=== PATIENT | female | born 1945 | race Caucasian/White ===

== ENCOUNTER 2017-07-07 11:30 | Outpatient (RCR) | payer MEDICARE, BC, SELFPAY ==
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
--- NOTE | 2017-12-04 12:46 | HP.PTDCSUM ---
HP - PT D/C Summary It has been my pleasure to treat MEEK ENCINAS under orders from Yas Thompson DPM, for the diagnosis of LEFT PLANTAR FASCITIS AND RIGHT FOOT CAPSULITIS for a total of 10 visit(s). Discharge Date: 07/07/17 Please see the following information for a summary of their discharge status. - Subjective Subjective: PATIENT REPORTS THAT AFTER SHE DOES HER PHYSICAL THERAPY HER FOOT FEELS BETTER. SHE STATES SHE STILL HAS PAIN BUT HAS HOPE THAT IT COULD CONTINUE TO IMPOVE. SHE REPORTS STILL GETTING LEFT HEEL PAIN UP TO 8/10 WHEN SHE FIRST GETS UP AND WHEN SHE GOES TO BED (IT PULSES). IT ALSO HURTS AT NIGHT SOME. SHE REPORTS THE PAIN IS ALWAYS THERE AND AT LEAST 2-3/10. STILL HAVING RIGHT TOE PAIN TOO. SHE REPORTS SHE HAS BEEN TO DR. RAMIREZ TWICE SINCE STARTING PT AND SHE HAD AN INJECTION IN THE LEFT HEEL WHICH HELPED. ANOTHER INJECITON PENDING FRIDAY. SHE REPORTS DR. RAMIREZ SAYS SHE HAS A CLASIC CASE OF LEFT PLANTAR FASCITIS AND SHE IS DOING ALL THE RIGHT THINGS. SHE REPORTS HE SAID SHE HAS ARTHIRIS IN THE RIGHT FOOT. PATIENT REPORTS THAT DR. RAMIREZ FOUND A HEEL SPUR ON HER LEFT WITH X-RAY PRIOR TO INJECTION. PATIENT REPORTS SHE IS GOING TO BE TAKING A COUPLE TRIPS AND WILL HAVE ACCESS TO A POOL OVER THE SUMMER. SHE STATES THE WATER EX SEEMS TO BE HELPING HER IN A LOT OF WAYS AND SHE PLANS TO CONTINUE THIS SUMMER. - Pain L foot Pain Intensity (Out of 10): 4 R foot Pain Intensity (Out of 10): 3 - Overall Improvement % Improvement: 50 - Objective Objective/Function: Dural Signs: POSITIVE RIGHT AND LEFT LE'S. Lumbar mvmt loss: flex - MIN. ext - MOD. R SG - MOD. L SG - MIN. Core strength: POOR. Palpation: NO PALPABALE TENDERNESS IN LUMBOSACRAL AREA OR FEET. OTHER: ABLE TO GREATLY LESSEN ANNALISA FOOT SYMPTOMS WITH PRONE LYING. ABLE TO ABOLISH ANNALISA FOOT SYMPTOMS WITH REPEATED EXTENSION IN LYING WITH CENTRALIZATION. FEET REMAINED BETTER A RESULT EVEN IN WEIGHT BEARING. LE FUNCTIONAL SCORE HAS IMPROVED FROM 23 TO 34 - Goals Goal 1:: DECREASE C/O ANNALISA LE SX'S Goal 2:: IMPROVE STANDING, WALKING, AND RECREATIONAL FUNCTION Goal 3:: INSTRUCT IN PROPHYLAXIS - Plan Plan: D/C DUE TO PATIENT GOING ON SOME TRIPS, GETTING ANOTHER INJECTION AND HAVING ACCESS TO A POOL THIS SUMMER. - D/C Information If there are questions or concerns regarding this patient's physical therapy, please feel free to call me at [phone]. Thank you for the referral of this patient. Sincerely, Katy Workman
== END 2017-07-07 19:00 | disposition home or self-care (01) ==
LOC: PT 11:30
PROVIDERS: Visit Provider Podiatrist
DX: M72.2 Plantar fascial fibromatosis (principal); M77.9 Enthesopathy, unspecified
CPT/HCPCS: 97113; 97162; 97530

== ENCOUNTER → 2018-11-09 11:13 | Outpatient (CLI) | payer MEDICARE, OTHER, SELFPAY ==
--- NOTE | 2018-11-09 11:19 | BI_ITS ---
MAMMOGRAPHY - BILATERAL SCREENING REASON FOR EXAM: Female, 73 years old. Routine annual screening examination. PERTINENT HISTORY: Non-contributory. Remote left excisional breast biopsy. TECHNIQUE: Digital bilateral breast roberta (3D mammographic acquisition) in the CC and MLO projections. 2-D mediolateral oblique (MLO) and craniocaudad (CC) views of both breasts were obtained. CAD: Full Field Digital Mammography with Computer Added Detection was performed. COMPARISON: Comparison is made with prior outside examination October 07, 2017. FINDINGS: Breast Composition: There are scattered areas of fibroglandular density. There are no dominant masses or suspicious calcifications. No other significant abnormalities are identified. There has been no significant change since the prior study. BI/SCREEN MAMM (CAD) W/ROBERTA BILAT IMPRESSION: Stable bilateral screening mammogram. Yearly follow-up mammogram recommended. (A) ASSESSMENT CATEGORY: BIRADS Category 1: Negative. A letter regarding these results will be sent to the patient by the facility within 30 days. Approximately 10% of breast cancers are not detected by mammography. A normal mammogram should not delay biopsy of a clinically suspicious abnormality. [id number] Electronically Signed: Fercho Barnett, at 15:22 EDT , Service support ,
== END ==
PROVIDERS: Family Provider Family Medicine; PCP Family Medicine; Referring Provider Family Medicine; Visit Provider Family Medicine
DX: Z12.31 Encounter for screening mammogram for malignant neoplasm of breast (principal)
CPT/HCPCS: 77063; 77067

== ENCOUNTER → 2018-11-19 08:45 | Outpatient (CLI) | payer MEDICARE, OTHER, SELFPAY ==
[2018-11-19 12:24] LABS: Absolute Lymphocyte Count 1.48 X10^3/uL (0.83-4.51); Absolute Neutrophil Count 1.5 X10^3/uL (2.0-7.7); Basophil# 0.03 X10^3/uL; Basophil% 0.9 % (0-1); Eosinophil# 0.07 X10^3/uL; Hematocrit 43.2 % (37-47); Hemoglobin 13.6 g/dL (12.0-15.0); Lymphocyte # 1.48 X10^3/ul (4.0); Mean Corp Hgb Conc 31.5 g/dL (32-36); Mean Corpuscular Hgb 30.6 pg (27.0-32.0); Mean Corpuscular Volume 97.1 fL (81-99); Mean Platelet Vol. 10.7 fl (6.2-12.0); Monocyte# 0.35 X10^3/uL; Monocyte% 10.2 % (0-10); NRBC Flagged by Analyzer 0 % (0-5); Neutrophil % 43.6 % (47-70); Platelet Count 233 K/mm3 (150-450); RBC Distribution Width CV 12.8 % (11.6-14.6); RBC Distribution Width SD 45.5 fl (35.1-43.9); Red Blood Count 4.45 M/mm3 (4.2-5.4); White Blood Count 3.4 K/mm3 (4.4-11.0)
[2018-11-19 12:50] LABS: Cholesterol 250 mg/dL (200); Free T3 2.9 pg/mL (2.18-3.98); High Density Lipoprotein 45 mg/dL; Thyroid Stim Hormone (TSH) 0.28 uIU/mL (0.358-3.74); Triglycerides 174 mg/dL; Very Low Density Lipoprotein 35 mg/dL (5-40)
== END ==
PROVIDERS: Family Provider Family Medicine; PCP Family Medicine; Visit Provider Family Medicine
DX: E78.5 Hyperlipidemia, unspecified (principal); E03.9 Hypothyroidism, unspecified
CPT/HCPCS: 36415; 80061; 84439; 84443; 84481; 85025

== ENCOUNTER → 2018-11-25 10:54 | Outpatient (CLI) | payer MEDICARE, OTHER, SELFPAY ==
--- NOTE | 2018-11-25 10:58 | US_ITS ---
STUDY: RENAL ULTRASOUND - COMPLETE REASON FOR EXAM: Female, 73 years old. UTI TECHNIQUE: Ultrasound evaluation of the kidneys was performed with real-time and static sheridan-scale imaging. COMPARISON: None available. FINDINGS: RIGHT KIDNEY: Normal location of the right kidney, which is normal in size. The right kidney measures 11 cm. There is a normal cortex of the right kidney. There is a right renal midpole 3 cm cyst. There are no right renal calculi. There is no right hydronephrosis. LEFT KIDNEY: Normal location of the left kidney, which is normal in size. The left kidney measures 11 cm. There is a normal cortex of the left kidney. There is no left renal mass or cyst. There are no left renal calculi. There is no left hydronephrosis. AORTA: No evidence of abdominal aortic aneurysm. I.V.C.: The IVC is patent. BLADDER: The urinary bladder is partially distended and appears unremarkable. US/Kidney and Bladder IMPRESSION: Normal ultrasound of the kidneys and urinary bladder. Right renal cyst. Electronically Signed: Antony Barrett, at 17:44 EDT Tel , Service support ,
== END ==
PROVIDERS: Family Provider Family Medicine; PCP Family Medicine; Referring Provider Urology; Visit Provider Urology
DX: N39.0 Urinary tract infection, site not specified (principal)
CPT/HCPCS: 76770

== ENCOUNTER 2018-11-30 06:43 | Day surgery (SDC) | payer MEDICARE, OTHER, SELFPAY ==
[2018-11-30 07:01] VITALS: BP 139/89; PULSE 91; RESP 16; TEMP 36.8; O2SAT 99; BMI 27.0
[2018-11-30] MEDS: Lactated Ringers 1,000 ML 100 ML IV (07:14)
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
--- NOTE | 2018-11-30 08:00 | COLBX_PTH ---
PATIENT: MEEK ENCINAS LOC: EN U#:[id number] AGE/SX: 73/F ROOM: RE11/30/[address]: Dr. Rafael Rios MD : 1945 BED: DIS: 11/30/2018 SPEC #: [id number] RECD: 11/30/18 13:05 STATUS: DIANDRA REJanette #: [id number] NEVA: 11/30/18 08:[address]: Rafael Rios DEPT: SURGICAL PATHOLOGY RECD BY: Александр Padilla ENTERED: 11/30/18 13:36 SP TYPE: COLON BX OTHR DR: Dr. Gail Ko MD Tissues: Transverse colon Procedures: Surgery Specimen Level IV HEADER OPERATION: Colonoscopy - open access (MAC) PRE-OP DIAGNOSIS: Screening colonoscopy TISSUE SUBMITTED: Transverse colon polyp MICROSCOPIC DIAGNOSIS Transverse colon polyp, biopsy: A polypoid fragment of colonic mucosa with focal hyperplastic changes. SJ:agustin 12/01/18 MICROSCOPIC DESCRIPTION Slides are reviewed. GROSS DESCRIPTION Received in fixative is one container labeled with the patient's name and designated transverse colon polyp. The specimen consists of one irregular fragment of light buchanan soft tissue that measures 0.5 x 0.3 x 0.2 cm. The specimen is totally submitted in one cassette. / SJ:agustin 11/30/18 TC:5 CPT: 57594
--- NOTE | 2018-11-30 08:18 | OP.ENDO_ITS ---
11/30/2018 Gail Ko [facility] [place] [id number] [place] [address] Re : Colonoscopy procedure for Kristina Bonilla Dear Dr. Ko This procedure was performed on Friday, November 30, 2018. My impressions and recommendations are as follows: Impressions : - Preparation of the colon was poor. - Two 4 to 10 mm polyps in the descending colon and in the transverse colon, removed with a hot snare. Resected and retrieved. - Diverticulosis in the sigmoid colon and in the descending colon. - The examination was otherwise normal. Recommendations : - Discharge patient to home. - Resume previous diet. - Continue present medications. - Await pathology results. - Repeat colonoscopy in 3 years for surveillance. This is due to the poor bowel prep and the fact she had two polyps. - Return to my office in 1 week. My findings are described in the full procedure note, which is enclosed. If I can be of further assistance, please feel free to contact me at Doctor phone number(s): , Fax: [phone], Work: . Sincerely, MD Rafael Ruiz MD 11/30/2018 8:17:56 AM This report has been signed electronically.
[2018-11-30 08:20] VITALS: BP 114/83; BP 139/89; PULSE 96; RESP 22; TEMP 36.3; O2SAT 95
[2018-11-30 08:25] VITALS: BP 133/93; BP 139/89; PULSE 98; RESP 24; O2SAT 91
[2018-11-30 08:30] VITALS: BP 132/86; BP 139/89; PULSE 96; RESP 24; O2SAT 94
[2018-11-30 08:35] VITALS: BP 125/88; BP 139/89; PULSE 94; RESP 16; TEMP 36.5; O2SAT 96
[2018-11-30 08:57] VITALS: BP 139/89
== END 2018-11-30 09:13 | disposition home or self-care (01) ==
LOC: EN 06:45 → AC 06:45
PROVIDERS: Family Provider Family Medicine; PCP Family Medicine; Referring Provider Family Medicine; Visit Provider Surgery
PROC: 0DJD8ZZ Inspection of Lower Intestinal Tract, Via Natural or Artificial Opening Endoscopic (ICD-10-PCS; CPT 45378; principal; 2018-11-30 07:55)
DX: Z12.11 Encounter for screening for malignant neoplasm of colon (principal); K63.5 Polyp of colon; K57.30 Diverticulosis of large intestine without perforation or abscess without bleeding; K59.00 Constipation, unspecified; G43.909 Migraine, unspecified, not intractable, without status migrainosus; E03.9 Hypothyroidism, unspecified; Z78.0 Asymptomatic menopausal state; Z87.440 Personal history of urinary (tract) infections; Z79.899 Other long term (current) drug therapy
CPT/HCPCS: 45385; 88305; J7120; J1610; J2405

== ENCOUNTER → 2019-08-17 15:16 | Outpatient (CLI) | payer MEDICARE, OTHER, SELFPAY ==
[2019-08-12 10:44] VITALS: BMI 27.0
== END ==
PROVIDERS: PCP Family Medicine; Referring Provider Chiropractor; Visit Provider Chiropractor
DX: M99.03 Segmental and somatic dysfunction of lumbar region (principal)
CPT/HCPCS: 72100

== ENCOUNTER → 2020-01-06 13:17 | Outpatient (CLI) | payer MEDICARE, OTHER, SELFPAY ==
[2019-09-16 15:10] VITALS: BMI 27.0
--- NOTE | 2020-01-06 13:19 | BI_ITS ---
MAMMOGRAPHY - BILATERAL SCREENING REASON FOR EXAM: Female, 74 years old. Routine annual screening examination. PERTINENT HISTORY: Non-contributory. Remote left excisional breast biopsy. TECHNIQUE: Digital bilateral breast roberta (3D mammographic acquisition) in the CC and MLO projections. 2-D mediolateral oblique (MLO) and craniocaudad (CC) views of both breasts were obtained. CAD: Full Field Digital Mammography with Computer Added Detection was performed. COMPARISON: Comparison is made with prior study dated 11/09/2018. FINDINGS: Breast Composition: There are scattered areas of fibroglandular density. There are no dominant masses or suspicious calcifications. No other significant abnormalities are identified. There has been no significant change since the prior study. BI/SCREEN MAMM (CAD) W/ROBERTA BILAT IMPRESSION: Stable bilateral screening mammogram. Yearly follow-up mammogram recommended. (A) ASSESSMENT CATEGORY: BIRADS Category 1: Negative. A letter regarding these results will be sent to the patient by the facility within 30 days. Approximately 10% of breast cancers are not detected by mammography. A normal mammogram should not delay biopsy of a clinically suspicious abnormality. [id number] Electronically Signed: Fercho Barnett, at 14:42 EST , Service support ,
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
== END ==
PROVIDERS: PCP Family Medicine; Referring Provider Family Medicine; Visit Provider Family Medicine
DX: Z12.31 Encounter for screening mammogram for malignant neoplasm of breast (principal); Z78.0 Asymptomatic menopausal state
CPT/HCPCS: 77063; 77067; 77080

== ENCOUNTER → 2020-01-17 07:54 | Outpatient (CLI) | payer MEDICARE, OTHER, SELFPAY ==
[2019-09-16 15:10] VITALS: BMI 27.0
--- NOTE | 2020-01-17 08:15 | RAD_ITS ---
STUDY: X-RAY - PELVIS AND RIGHT HIP REASON FOR EXAM: Female, 74 years old. PAIN, NKI TECHNIQUE: 3 views of the pelvis and hip. COMPARISON: None. FINDINGS: There is a non-specific bowel gas pattern. Normal visualized soft tissue structures. Normal bilateral iliac wings, sacroiliac joints and visualized sacrum. Normal bilateral superior and inferior pubic rami. Normal pubic symphysis. Normal bilateral ischial tuberosities. Normal visualized femoral head. Minor acetabular spurring. Normal hip joint. RAD/HIP, UNI W/ Pelvis 2-3 Views IMPRESSION: Mild degenerative changes. No acute fracture or other significant bony pathology. Electronically Signed: Antony Nair MD at 22:55 EST , Service support ,
[2020-01-17 08:50] LABS: Absolute Lymphocyte Count 2.02 X10^3/uL (0.83-4.51); Absolute Neutrophil Count 1.7 X10^3/uL (2.0-7.7); Basophil# 0.03 X10^3/uL; Basophil% 0.7 % (0-1); Eosinophil# 0.05 X10^3/uL; Eosinophils% 1.2 % (0-5); Hematocrit 43.4 % (37-47); Lymphocyte # 2.02 X10^3/ul (4.0); Lymphocyte % 48.2 % (19-41); Mean Corp Hgb Conc 32.3 g/dL (32-36); Mean Corpuscular Hgb 31.3 pg (27.0-32.0); Mean Corpuscular Volume 96.9 fL (81-99); Mean Platelet Vol. 10.5 fl (6.2-12.0); Monocyte# 0.34 X10^3/uL; Monocyte% 8.1 % (0-10); NRBC Flagged by Analyzer 0 % (0-5); Neutrophil # 1.74 X10^3/uL (2.7-7.7); Neutrophil % 41.6 % (47-70); Platelet Count 242 K/mm3 (150-450); RBC Distribution Width CV 12.5 % (11.6-14.6); RBC Distribution Width SD 44.8 fl (35.1-43.9); Red Blood Count 4.48 M/mm3 (4.2-5.4); White Blood Count 4.2 K/mm3 (4.4-11.0)
[2020-01-17 09:26] LABS: ALB/GLOB Ratio 1.2 RATIO (0.9-2.4); AST(SGOT) 19 U/L (15-37); Alanine Aminotransfer ALT/SGPT 23 U/L (13-56); Albumin, Serum 3.8 g/dL (3.2-5.0); Alkaline Phosphatase 62 U/L (45-117); Anion Gap 4 (5-15); BUN 12 mg/dL (7-18); BUN/Creat Ratio 14.1 RATIO (10-20); Calcium,Total 8.9 mg/dL (8.5-10.1); Chloride 110 mmol/L (98-107); Cholesterol 263 mg/dL (200); Creatinine, Serum 0.85 mg/dL (0.55-1.02); EST Glomerular Filtration Rate 69 mL/min (>60); Est Glom Filt Rate - Afr Amer 84 mL/min (>60); Free T3 2.3 pg/mL (2.18-3.98); Globulin 3.3 g/dL (2.2-4.2); Glucose 87 mg/dL (74-106); High Density Lipoprotein 52 mg/dL; Potassium 4.1 mmol/L (3.5-5.1); Protein, Total 7.1 g/dL (6.4-8.2); Sodium Level 142 mmol/L (136-145); Thyroid Stim Hormone (TSH) 0.98 uIU/mL (0.358-3.74); Triglycerides 147 mg/dL; Very Low Density Lipoprotein 29 mg/dL (5-40)
== END ==
PROVIDERS: PCP Family Medicine; Referring Provider Family Medicine; Visit Provider Family Medicine
DX: M25.551 Pain in right hip (principal); E03.9 Hypothyroidism, unspecified; K21.9 Gastro-esophageal reflux disease without esophagitis; K44.9 Diaphragmatic hernia without obstruction or gangrene; E78.5 Hyperlipidemia, unspecified
CPT/HCPCS: 36415; 73502; 80053; 80061; 84439; 84443; 84481; 85025

== ENCOUNTER → 2020-11-18 | Outpatient (CLI) | payer MEDICARE, OTHER, SELFPAY | END | disposition home or self-care (01) | LOC: LABSPEC 07:57 | PROVIDERS: Visit Provider Family Medicine | DX: Z20.828 Contact with and (suspected) exposure to other viral communicable diseases (principal) | CPT/HCPCS: 87635; U0005; U0003 ==

== ENCOUNTER → 2021-01-15 09:39 | Outpatient (CLI) | payer MEDICARE, OTHER, SELFPAY ==
--- NOTE | 2021-01-15 09:43 | BI_ITS ---
MAMMOGRAPHY - BILATERAL SCREENING REASON FOR EXAM: Female, 75 years old. Routine annual screening examination. PERTINENT HISTORY: Non-contributory. Remote left excisional breast biopsy. TECHNIQUE: Digital bilateral breast roberta (3D mammographic acquisition) in the CC and MLO projections. 2-D mediolateral oblique (MLO) and craniocaudad (CC) views of both breasts were obtained. CAD: Full Field Digital Mammography with Computer Added Detection was performed. COMPARISON: Comparison is made with prior study dated 01/06/2020 and 11/09/2018. FINDINGS: Breast Composition: There are scattered areas of fibroglandular density. There are no dominant masses or suspicious calcifications. No other significant abnormalities are identified. There has been no significant change since the prior study. BI/SCRN MAMM (CAD)W/ROBERTA BILAT IMPRESSION: Stable bilateral screening mammogram. Yearly follow-up mammogram recommended. (A) ASSESSMENT CATEGORY: BIRADS Category 1: Negative. A letter regarding these results will be sent to the patient by the facility within 30 days. Approximately 10% of breast cancers are not detected by mammography. A normal mammogram should not delay biopsy of a clinically suspicious abnormality. [id number] Electronically Signed: Fercho Barnett MD at 10:54 EST , Service support ,
== END ==
PROVIDERS: PCP Family Medicine; Referring Provider Family Medicine; Visit Provider Family Medicine
DX: Z12.31 Encounter for screening mammogram for malignant neoplasm of breast (principal)
CPT/HCPCS: 77063; 77067

== ENCOUNTER 2021-11-20 06:12 | Day surgery (SDC) | payer MEDICARE, OTHER, SELFPAY ==
[2021-11-20] VITALS (7 sets, daily range): BP systolic 119–127; BP diastolic 62–83; PULSE 85–93; RESP 16–18; TEMP 36.3–37.2; O2SAT 95–100; BMI 27.4
[2021-11-20] MEDS: Lactated Ringers 1,000 ML 15 ML IV (07:00)
--- NOTE | 2021-11-20 07:16 | HP.PCM_ITS ---
[facility] - General General Date of Service: 11/20/21 Chief Complaint: Screening for intestinal cancer HPI Narrative MEEK ENCINAS, is a 76 F who presents who presents via open access today for a colonoscopy. The patient's previously had multiple colon polyps November 2018. Her daughter unfortunately from colon cancer. She has no complaints. She otherwise enjoys good health. No bright red blood per rectum or melena. No abdominal pain. [facility] Medical History (Updated 11/16/21 @ 09:41 by Laury Pearce) Alcohol use Injury of head and neck Migraine headache Non-smoker PONV (postoperative nausea and vomiting) Thyroid disease Wears glasses Home Medications levothyroxine 100 mcg tablet 100 mcg PO DAILY 11/25/18 [History Last Taken 11/29/18] prochlorperazine maleate 10 mg tablet 10 mg PO PRN PRN Migraine Headache 11/25/18 [History Last Taken Unknown] sumatriptan succinate 50 mg tablet 50 mg PO PRN PRN headaches 11/25/18 [History Last Taken Unknown] psyllium husk 0.4 gram capsule (Metamucil) 0.4 g PO DAILY 10/29/21 [History Last Taken Unknown] Allergy/AdvReac Type Severity Reaction Status Date / Time nitrofurantoin Allergy Itching Verified 11/20/21 06:50 [From Macrobid] cephalexin [From Keflex] AdvReac Nausea Verified 11/20/21 06:50 prednisone AdvReac Upset Verified 11/20/21 06:50 Stomach Family History (Updated 10/29/21 @ 16:10 by Charlene Whitaker) Daughter Colon cancer Surgical History (Updated 11/16/21 @ 09:31 by Laury Pearce) History of bladder repair surgery History of colonoscopy (~11/30/18) History of hysterectomy Social History Smoking Status: Never smoker ROS Constitutional Constitutional: Reports systems reviewed and no addt'l complaints, except as documented Cardiovascular Cardiovascular: Denies chest pain Respiratory/Chest Respiratory/Chest: Denies shortness of breath at rest Gastrointestinal Gastrointestinal: Denies abdominal pain, change in bowel habits, hematochezia or melena Vital Signs Vital Signs Vital Signs: 11/20/21 06:52 Temperature 97.5 F L Temperature Source Temporal Pulse Rate 85 Respiratory Rate 18 Blood Pressure 127/79 H Blood Pressure Mean 95 Blood Pressure Source Monitor Blood Pressure Position Semi-Fowlers Blood Pressure Location Left Arm Pulse Ox 100 Oxygen Delivery Method Room Air Weight Weight: 159 lb 12.8 oz Body Mass Index (BMI) 27.4 Physical Exam Const alert, oriented x3 and no apparent distress General Appearance: cooperative and comfortable Eyes General Eye: normal appearance of both eyes Neck General: normal visual inspection Chest inspection of chest normal Resp Effort and Inspection: able to speak in complete sentences and symmetric chest movement Auscultation: clear to auscultation bilaterally Cardio regular rate and regular rhythm GI soft to palpation, non-tender and non-distended Extremity no calf tenderness Neuro oriented x3 Psych thought process normal Assessment & Plan Assessment/Plan (1) History of colon polyps: PLAN: 76-year-old female presents with a personal history of colon polyps. She presents via open access. She has had an opportunity to ask and have questions answered. Anticipate proceeding with a colonoscopy with possible biopsy or polypectomy as indicated. David Varghese M.D., F.A.C.S.
--- NOTE | 2021-11-20 08:11 | OP.COLON_ITS ---
Patient Name: Kristina Bonilla Procedure Date: 11/20/2021 7:19 AM Date of : 1945 Age: 76 Procedure: Colonoscopy Indications: High risk colon cancer surveillance: Personal history of colonic polyps Providers: David Varghese MD Referring MD: Gail Ko Medicines: See the Anesthesia note for documentation of the administered medications Patient Profile: Last Colonoscopy: November 2018. Complications: No immediate complications. Procedure: Pre-Anesthesia Assessment: - Prior to the procedure, a History and Physical was performed, and patient medications and allergies were reviewed. The patient's tolerance of previous anesthesia was also reviewed. The risks and benefits of the procedure and the sedation options and risks were discussed with the patient. All questions were answered, and informed consent was obtained. Prior Anticoagulants: The patient has taken no previous anticoagulant or antiplatelet agents. ASA Grade Assessment: II - A patient with mild systemic disease. After reviewing the risks and benefits, the patient was deemed in satisfactory condition to undergo the procedure. After I obtained informed consent, the scope was passed under direct vision. Throughout the procedure, the patient's blood pressure, pulse, and oxygen saturations were monitored continuously. The colonoscope was introduced through the anus and advanced to the cecum, identified by appendiceal orifice and ileocecal valve. The colonoscopy was technically difficult and complex due to multiple diverticula in the colon, poor bowel prep and a tortuous colon. Successful completion of the procedure was aided by changing the patient to a supine position and using manual pressure. The patient tolerated the procedure well. The quality of the bowel preparation was fair. The ileocecal valve and the appendiceal orifice were photographed. Scope In: 7:30:07 AM Scope Withdrawal Time 0 hours 9 minutes 53 seconds Scope Out: 8:05:16 AM Total Procedure Duration Time 0 hours 35 minutes 9 seconds Findings: Hemorrhoids were found on perianal exam. Multiple diverticula were found in the sigmoid colon and descending colon. The colon (entire examined portion) revealed significantly excessive looping. Impression: - Preparation of the colon was fair. - Hemorrhoids found on perianal exam. - Diverticulosis in the sigmoid colon and in the descending colon. - There was significant looping of the colon. - No specimens collected. Recommendation: - Discharge patient to home. - Resume previous diet. - Continue present medications. - Repeat colonoscopy in 5 years for surveillance. Consider Adult colonoscope Procedure Code(s): --- Professional --- 29315, Colonoscopy, flexible; diagnostic, including collection of specimen(s) by brushing or washing, when performed (separate procedure) Diagnosis Code(s): --- Professional --- Z86.010, Personal history of colonic polyps K64.9, Unspecified hemorrhoids K57.30, Diverticulosis of large intestine without perforation or abscess without bleeding CPT copyright 2017 [employer]. All rights reserved. The codes documented in this report are preliminary and upon cork pressing machine operator review may be revised to meet current compliance requirements. David Varghese MD 11/20/2021 8:10:59 AM This report has been signed electronically. Number of Addenda: 0 Note Initiated On: 11/20/2021 7:19 AM
--- NOTE | 2021-11-20 08:12 | OP.CCLET_ITS ---
11/20/2021 Gail Ko [place] [id number] [facility] [address] [address] Re : Colonoscopy procedure for Kristina Bonilla Dear Dr. Ko This procedure was performed on Saturday, November 20, 2021. My impressions and recommendations are as follows: Impressions : - Preparation of the colon was fair. - Hemorrhoids found on perianal exam. - Diverticulosis in the sigmoid colon and in the descending colon. - There was significant looping of the colon. - No specimens collected. Recommendations : - Discharge patient to home. - Resume previous diet. - Continue present medications. - Repeat colonoscopy in 5 years for surveillance. Consider Adult colonoscope My findings are described in the full procedure note, which is enclosed. If I can be of further assistance, please feel free to contact me at Doctor phone number(s): Work: . Sincerely, David Varghese MD 11/20/2021 8:10:59 AM This report has been signed electronically.
== END 2021-11-20 09:21 | disposition home or self-care (01) ==
LOC: EN 06:14 → AC 06:15
PROVIDERS: PCP Family Medicine; Referring Provider Family Medicine; Visit Provider Surgery
PROC: 0DJD8ZZ Inspection of Lower Intestinal Tract, Via Natural or Artificial Opening Endoscopic (ICD-10-PCS; CPT 45378; principal; 2021-11-20 07:25)
DX: K57.30 Diverticulosis of large intestine without perforation or abscess without bleeding (principal); K64.9 Unspecified hemorrhoids; Z79.2 Long term (current) use of antibiotics; Z86.010 Personal history of colon polyps; Z80.0 Family history of malignant neoplasm of digestive organs
CPT/HCPCS: 45378; J7120; J2405

== ENCOUNTER → 2021-12-20 | Outpatient (CLI) | payer MEDICARE, OTHER, SELFPAY ==
[2021-12-20 09:35] LABS: Absolute Lymphocyte Count 1.81 X10^3/uL (0.83-4.51); Basophil# 0.03 X10^3/uL; Basophil% 0.7 % (0-1); Eosinophil# 0.05 X10^3/uL; Eosinophils% 1.2 % (0-5); Hematocrit 44.6 % (37-47); Hemoglobin 15.1 g/dL (12.0-15.0); Lymphocyte # 1.81 X10^3/ul (0.83-4.51); Lymphocyte % 41.8 % (19-41); Mean Corp Hgb Conc 33.9 g/dL (32-36); Mean Corpuscular Hgb 31.9 pg (27.0-32.0); Mean Corpuscular Volume 94.3 fL (81-99); Mean Platelet Vol. 9.9 fl (6.2-12.0); Monocyte% 9.2 % (0-10); NRBC Flagged by Analyzer 0 % (0-5); Neutrophil # 2.03 X10^3/uL (2.7-7.7); Neutrophil % 46.9 % (47-70); Platelet Count 241 K/mm3 (150-450); RBC Distribution Width CV 12.3 % (11.6-14.6); RBC Distribution Width SD 42.8 fl (35.1-43.9); Red Blood Count 4.73 M/mm3 (4.2-5.4); White Blood Count 4.3 K/mm3 (4.4-11.0)
[2021-12-20 10:34] LABS: ALB/GLOB Ratio 1.2 RATIO (0.9-2.4); AST(SGOT) 14 U/L (15-37); Alanine Aminotransfer ALT/SGPT 21 U/L (13-56); Albumin, Serum 3.9 g/dL (3.2-5.0); Alkaline Phosphatase 62 U/L (45-117); Anion Gap 4 (5-15); BUN 16 mg/dL (7-18); BUN/Creat Ratio 16.9 RATIO (10-20); Calcium,Total 9.6 mg/dL (8.5-10.1); Chloride 107 mmol/L (98-107); Cholesterol 260 mg/dL (200); Creatinine, Serum 0.94 mg/dL (0.55-1.02); EST Glomerular Filtration Rate 61 mL/min (>60); Est Glom Filt Rate - Afr Amer 74 mL/min (>60); Globulin 3.3 g/dL (2.2-4.2); Glucose 99 mg/dL (74-106); High Density Lipoprotein 48 mg/dL; Potassium 4.3 mmol/L (3.5-5.1); Protein, Total 7.2 g/dL (6.4-8.2); Sodium Level 140 mmol/L (136-145); Thyroid Stim Hormone (TSH) 0.49 uIU/mL (0.358-3.74); Triglycerides 189 mg/dL; Very Low Density Lipoprotein 38 mg/dL (5-40)
== END | disposition home or self-care (01) ==
LOC: PAVLAB 09:17
PROVIDERS: PCP Family Medicine; Referring Provider Family Medicine; Visit Provider Family Medicine
DX: Z00.00 Encounter for general adult medical examination without abnormal findings (principal); E03.9 Hypothyroidism, unspecified; E78.5 Hyperlipidemia, unspecified
CPT/HCPCS: 36415; 80053; 80061; 84439; 84443; 85025

== ENCOUNTER 2022-01-22 13:24 | Outpatient (CLI) | payer MEDICARE, OTHER, SELFPAY ==
--- NOTE | 2022-01-22 13:26 | BI_ITS ---
MAMMOGRAPHY - BILATERAL SCREENING REASON FOR EXAM: Female, 76 years old. Routine annual screening examination. PERTINENT HISTORY: Non-contributory. Remote left excisional breast biopsy. TECHNIQUE: Digital bilateral breast roberta (3D mammographic acquisition) in the CC and MLO projections. 2-D mediolateral oblique (MLO) and craniocaudad (CC) views of both breasts were obtained. CAD: Full Field Digital Mammography with Computer Added Detection was performed. COMPARISON: Comparison is made with prior study dated 01/15/2021 and 01/06/2020. FINDINGS: Breast Composition: There are scattered areas of fibroglandular density. There are no dominant masses or suspicious calcifications. No other significant abnormalities are identified. There has been no significant change since the prior study. BI/SCRN MAMM (CAD)W/ROBERTA BILAT IMPRESSION: Stable bilateral screening mammogram. Yearly follow-up mammogram recommended. (A) ASSESSMENT CATEGORY: BIRADS Category 1: Negative. A letter regarding these results will be sent to the patient by the facility within 30 days. Approximately 10% of breast cancers are not detected by mammography. A normal mammogram should not delay biopsy of a clinically suspicious abnormality. [id number] Electronically Signed: Fercho Barnett MD at 14:21 EST ,
== END 2022-01-22 23:59 | disposition home or self-care (01) ==
LOC: OPBI 13:24
PROVIDERS: PCP Family Medicine; Referring Provider Family Medicine; Visit Provider Family Medicine
DX: Z12.31 Encounter for screening mammogram for malignant neoplasm of breast (principal); Z92.89 Personal history of other medical treatment
CPT/HCPCS: 77063; 77067

== ENCOUNTER → 2022-06-05 | Outpatient (CLI) | payer MEDICARE, OTHER, SELFPAY ==
--- NOTE | 2022-06-05 14:59 | US_ITS ---
STUDY: SUPERFICIAL ULTRASOUND - SOFT TISSUES NECK. REASON FOR EXAM: Female, 77 years old. LUMP rt neck TECHNIQUE: A superficial ultrasound was performed with real-time and static murguia-scale imaging. COMPARISON: None. FINDINGS: The right parotid gland measures 5.1 cm x 4.9 cm x 1 cm. Within it, there is a cyst measuring 1.2 cm x 1.1 cm x 0.7 cm. Anterior to the right parotid gland, there is a benign-appearing 8 mm x 5 mm x 4 mm lymph node. The left thyroid gland measures 4.6 cm x 4.6 cm x 0.9 cm. US/Head/Neck Soft Tissue IMPRESSION: 1.2 cm x 1.1 cm x 0.7 cm cyst in the right parotid gland. Electronically Signed: Fercho Barnett MD at 9:52 EDT ,
== END | disposition home or self-care (01) ==
LOC: US 14:56
PROVIDERS: PCP Family Medicine; Referring Provider Family Medicine; Visit Provider Family Medicine
DX: R59.0 Localized enlarged lymph nodes (principal)
CPT/HCPCS: 76536

== ENCOUNTER → 2023-01-03 | Outpatient (CLI) | payer MEDICARE, OTHER, SELFPAY ==
[2023-01-03 19:08] LABS: T4 Free Direct 1.31 ng/dL (0.76-1.46); Thyroid Stim Hormone (TSH) 0.08 uIU/mL (0.358-3.74)
== END | disposition home or self-care (01) ==
LOC: BFHLAB 14:42
PROVIDERS: PCP Family Medicine; Visit Provider Family Medicine
DX: E03.9 Hypothyroidism, unspecified (principal)
CPT/HCPCS: 36415; 84439; 84443

== ENCOUNTER → 2023-01-30 | Outpatient (CLI) | payer MEDICARE, OTHER, SELFPAY ==
--- NOTE | 2023-01-30 09:34 | BI_ITS ---
MAMMOGRAPHY - BILATERAL SCREENING REASON FOR EXAM: Female, 77 years old. Routine annual screening examination. PERTINENT HISTORY: Non-contributory. Remote left excisional breast biopsy. TECHNIQUE: Digital bilateral breast roberta (3D mammographic acquisition) in the CC and MLO projections. 2-D mediolateral oblique (MLO) and craniocaudad (CC) views of both breasts were obtained. CAD: Full Field Digital Mammography with Computer Added Detection was performed. COMPARISON: Comparison is made with prior study January 22, 2022 and January 06 9021. FINDINGS: Breast Composition: There are scattered areas of fibroglandular density. There are no dominant masses or suspicious calcifications. No other significant abnormalities are identified. There has been no significant change since the prior study. BI/SCRN MAMM (CAD)W/ROBERTA BILAT IMPRESSION: Stable bilateral screening mammogram. Yearly follow-up mammogram recommended. (A) ASSESSMENT CATEGORY: BIRADS Category 2: Benign. A letter regarding these results will be sent to the patient by the facility within 30 days. Approximately 10% of breast cancers are not detected by mammography. A normal mammogram should not delay biopsy of a clinically suspicious abnormality. [id number] Electronically Signed: Fercho Barnett MD at 10:37 EST ,
== END | disposition home or self-care (01) ==
LOC: OPBI 09:32
PROVIDERS: PCP Family Medicine; Referring Provider Family Medicine; Visit Provider Family Medicine
DX: Z12.31 Encounter for screening mammogram for malignant neoplasm of breast (principal)
CPT/HCPCS: 77063; 77067

== ENCOUNTER → 2023-03-14 | Outpatient (CLI) | payer MEDICARE, OTHER, SELFPAY ==
--- OUTSIDE RECORDS SUMMARY | 2023-03-14 15:53 | XMS RPT_ITS | CCD ---
Author Name Unknown Address [address] [place] [address] [address] [place] [address] Organization [facility] Results Test Name Value Interpretation Reference Range Facil ity Summary Purpose Family History No Family History Records Found Advance Directives No Advanced Directives Records Found Additional Source Comments INFORMATION SOURCE (unrecogn ized section and content) FOR RECORDS PERTAINING TO PATIENTS WHO ARE OR HAVE BEEN ENROLLED IN A CHEMICAL DEPENDENCY/SUBSTANCEABUSE PROGRAM, SOME INFORMATION MAY BE OMITTED. This clinical summary was aggregated from multiple sources. Caution should be exercised in using it in the provision of clinical care. This summary normalizes information from multiple sources, and as a consequence, information in this document may materially change the coding, format and clinical context of patient data. In addition, data may be omitted in some cases. CLINICAL DECISIONS SHOULD BE BASED ON THE PRIMARY CLINICAL RECORDS. [employer] provides no warranty or guarantee of the accuracy or completeness of information in this document.
[2023-03-14 17:41] LABS: Absolute Lymphocyte Count 1.71 X10^3/uL (0.83-4.51); Absolute Neutrophil Count 2.8 X10^3/uL (2.0-7.7); Basophil# 0.03 X10^3/uL; Basophil% 0.6 % (0-1); Eosinophil# 0.03 X10^3/uL; Eosinophils% 0.6 % (0-5); Hemoglobin 13.9 g/dL (12.0-15.0); Lymphocyte # 1.71 X10^3/ul (0.83-4.51); Lymphocyte % 34.5 % (19-41); Mean Corp Hgb Conc 32.3 g/dL (32-36); Mean Corpuscular Hgb 30.9 pg (27.0-32.0); Mean Corpuscular Volume 95.6 fL (81-99); Mean Platelet Vol. 10.8 fl (6.2-12.0); Monocyte# 0.42 X10^3/uL; Monocyte% 8.5 % (0-10); NRBC Flagged by Analyzer 0 % (0-5); Neutrophil # 2.76 X10^3/uL (2.7-7.7); Neutrophil % 55.6 % (47-70); Platelet Count 246 K/mm3 (150-450); RBC Distribution Width CV 12.8 % (11.6-14.6); RBC Distribution Width SD 44.9 fl (35.1-43.9)
[2023-03-14 18:36] LABS: T4 Free Direct 1.32 ng/dL (0.76-1.46); Thyroid Stim Hormone (TSH) 0.21 uIU/mL (0.358-3.74)
== END | disposition home or self-care (01) ==
LOC: BFHLAB 15:30
PROVIDERS: PCP Family Medicine; Visit Provider Family Medicine
DX: U07.1 COVID-19 (principal); E03.9 Hypothyroidism, unspecified
CPT/HCPCS: 36415; 84439; 84443; 85025

== ENCOUNTER → 2024-01-08 | Outpatient (CLI) | payer MEDICARE, OTHER, SELFPAY ==
[2024-01-08 12:18] LABS: Absolute Lymphocyte Count 1.58 X10^3/uL (0.83-4.51); Absolute Neutrophil Count 2.1 X10^3/uL (2.0-7.7); Basophil# 0.03 X10^3/uL; Basophil% 0.7 % (0-1); Eosinophil# 0.06 X10^3/uL; Eosinophils% 1.4 % (0-5); Hemoglobin 13.9 g/dL (12.0-15.0); Lymphocyte # 1.58 X10^3/ul (0.83-4.51); Lymphocyte % 37.8 % (19-41); Mean Corp Hgb Conc 33.1 g/dL (32-36); Mean Corpuscular Hgb 31.2 pg (27.0-32.0); Mean Corpuscular Volume 94.4 fL (81-99); Monocyte# 0.36 X10^3/uL; Monocyte% 8.6 % (0-10); NRBC Flagged by Analyzer 0 % (0-5); Neutrophil # 2.14 X10^3/uL (2.7-7.7); Neutrophil % 51.3 % (47-70); Platelet Count 308 K/mm3 (150-450); RBC Distribution Width CV 12.5 % (11.6-14.6); RBC Distribution Width SD 43.2 fl (35.1-43.9); Red Blood Count 4.45 M/mm3 (4.2-5.4); White Blood Count 4.2 K/mm3 (4.4-11.0)
[2024-01-08 12:44] LABS: ALB/GLOB Ratio 1.2 RATIO (0.9-2.4); AST(SGOT) 14 U/L (15-37); Alanine Aminotransfer ALT/SGPT 19 U/L (13-56); Albumin, Serum 3.8 g/dL (3.2-5.0); Alkaline Phosphatase 58 U/L (45-117); Anion Gap 5 (5-15); BUN 16 mg/dL (7-18); BUN/Creat Ratio 20.1 RATIO (10-20); Calcium,Total 9.2 mg/dL (8.5-10.1); Chloride 109 mmol/L (98-107); Cholesterol 273 mg/dL (200); EST Glomerular Filtration Rate 74 mL/min (>60); Est Glom Filt Rate - Afr Amer 90 mL/min (>60); Globulin 3.3 g/dL (2.2-4.2); Glucose 91 mg/dL (74-106); High Density Lipoprotein 55 mg/dL; Potassium 3.9 mmol/L (3.5-5.1); Protein, Total 7.1 g/dL (6.4-8.2); Sodium Level 140 mmol/L (136-145); T4 Free Direct 1.29 ng/dL (0.76-1.46); Thyroid Stim Hormone (TSH) 0.163 uIU/mL (0.358-3.740); Triglycerides 146 mg/dL; Very Low Density Lipoprotein 29 mg/dL (5-40)
== END | disposition home or self-care (01) ==
LOC: BFHLAB 09:43
PROVIDERS: PCP Family Medicine; Referring Provider Family Medicine; Visit Provider Family Medicine
DX: Z00.00 Encounter for general adult medical examination without abnormal findings (principal); E03.9 Hypothyroidism, unspecified; E78.5 Hyperlipidemia, unspecified
CPT/HCPCS: 36415; 80053; 80061; 84439; 84443; 85025

== ENCOUNTER 2024-06-11 09:00 | Outpatient (RCR) | payer MEDICARE, OTHER, SELFPAY ==
--- NOTE | 2024-05-19 14:46 | HP.PTEVAL_ITS ---
Patient's Visit Information Visit Information Visit Information: MEEK ENCINAS is a 79 year old F referred to Physical Therapy by Dr. Kelsey Arias MD with a diagnosis of L SHLD IMPINGEMENT AND CHRONIC PAIN. Date of Evaluation: 05/19/24 Physical Therapist: Katy Workman, PT, Cert MDT Visit Plan Frequency: 2-3x /Week Duration: 4-6 Weeks Plan: L SHOULDER MODALITIES NEEDED TO DECREASE PAIN AND INFLAMMATION. FOCUS ON L SHOULDER SCAPULAR STRENGTH AND STABILIZATION EXERCISE. POSTURE CORRECTION/STRENGTHENING. L SHLD JT MOBILIZATION AND STRETCHING TO HELP RESTORE ROM. HEP INST. Subjective Subjective: Work/Leisure: RETIRED. 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 Present symptoms: MILD L SHOULDER PAIN AND CLICKING CURRENTLY IN THE FRONT AND BACK. DENIES L UE NUMBNESS AND TINGLING. Present since: 2-3 YEARS AGO Getting Better, Getting Worse or Staying the Same: GETTING BETTER Pain Scale: Worst - 4/10 Least - 0/10 Currently: 0/10 AT REST BUT PAIN WITH MVMT. Commenced as a result of: NO APPARENT REASON Symptoms at onset: L SHOULDER AND UPPER ARM PAIN Worse: USING IT, RIDING IN THE RV, DRIVING Better: DOING THE EX'S, SWIMMING, INJECTION, HOT SHOWER Disturbed sleep: NO Previous history/Previous treatment: L SHOULDER PAIN FOR A FEW YEARS - UNTREATED This episode: 03/09/24 L SHLD CORTISONE INJECTION BY DR. KELSEY ARIAS AND EX'S THAT PATIENT HAS BEEN DOING WHILE ON TRIP. DR. ARIAS ALSO SUGGESTED PT SO SHE IS HERE NOW UPON RETURN FROM THE TRIP. SHE REPORTS THE SHOT HELPED RIGHT AWAY. EX'S DESCRIBED INCLUDE: PENDULUM, 3LB IR, ER, SHLD ABD, BICEP CURLS, TRI KICK BACKS, PRONE Y'S, T'S AND W'S AND BAND SHLD FLEX Imaging: PATIENT REPORTS X-RAY'S LOOKED GOOD. PMH/Recent major surgery: R UPPER BACK AND FLANK PAIN SINCE DEC 2023 - WENT TO ED - STILL HAVING PAIN - TREATING IT WITH MASSAGE, ICE AND HEAT. ALSO HAVING L KNEE PAIN. HYPOTHYROIDISM. Objective Objective: Sitting Posture/Standing Posture: FAIR. MILD FH AND SHLD'S Active Correction of posture: ABLE TO CORRECT. Other Observations: INDEP GAIT AND TRANSFERS. Sensory deficit: ANNALISA UE LIGHT TOUCH SENSATION GROSSLY INTACT AND SYMMETRICAL ROM deficit: AROM L SHLD FLEX 148 DEG (STANDING), PROM (SUPINE) 153 DEG, SCAPTION (STANDING) WFL, IR/ER 65/70 DEG (SUPINE W/55 DEG ABD). PATIENT C/O ERP WITH ROM TESTING ALL PLANES. SHE ALSO HAD CLICKING WITH ROM TESTING INTO ABD, IR AND ER. Motor deficit: SHLD FLEX L 7.3, R 13.6 LBS, EXT L 4.8, R 10.3 LBS, ABD L 5.1, R 15.3 LBS, ER L 4.5, R 12.9 LBS, IR L 9.3, R 15.6 LBS, ELBOW FLEX L 7.8, R 13.8 LBS, EXT L 6.2, R 10.2 LBS. PATIENT C/O MILD L SHLD PAIN WITH SHLD STRENGTH TESTING ALL PLANES. Cervical Mvmt Loss: Flex: NIL Pro: NIL Ext: MIN Ret: MIN RSB: MIN LSB: MIN R Rot: MIN L Rot: NIL PATIENT REPORTS A LITTLE PULLING ON R SIDE OF HER NECK WITH NECK ROM TESTING. Postural strength: GOOD Palpation: TENDERNESS WITH PALPATION OF L POSTERIOR SHLD JOINT Balance/Special Test Scores Quick DASH Score: 36.3625 Goals Goal 1:: DECREASE C/O L SHLD PAIN BY AT LEAST 80% TO EASE ADL AND RECREATIONAL FUNCTION. Goal Time Frame: 4-6 Weeks Goal 2:: PATIENT WILL HAVE L SHLD ROM WFL ALL PLANES WITHOUT C/O PAIN. Goal Time Frame: 4-6 Weeks Goal 3:: PATIENT WILL HAVE INCREASED L UE STRENGTH TO WITHIN 80% OF R UE TO IMPROVE FUNCTION Goal Time Frame: 4-6 Weeks Goal 4:: PATIENT WILL HAVE IMPROVED QUICK DASH SCORE BY AT LEAST 10 POINTS. Goal Time Frame: 4-6 Weeks Goal 5:: INDEP HEP Goal Time Frame: 4-6 Weeks Rehabilitation Potential Physical Therapy Diagnosis: L SHLD TENDERNESS, TIGHTNESS AND WEAKNESS. Rehabilitation Potential: Good Anticipated Interventions Patient/Client Instruction: Educate patient on: Condition, Plan of Care and Risk Factors For the Purpose of:: To improve self management Therapeutic Exercise to Include: Strength training, Postural training, Flexibilty training and Scapular Strength/Stabilization For the Purpose of:: To decrease pain, To increase ROM, To improve muscle performance and motor function, To increase tolerance to activity/condition/position, To improve ability of physical actions for home/community/work/leisure, To increase flexibility/ROM and To improve self m anagement Cryotherapy (ice pack, ice massage): Yes Thermo therapy (hot pack): Yes Ultrasound (thermal/non thermal): Yes For the Purpose of:: To decrease pain, To decrease swelling/inflammation and To improve nutrient delivery to tissue Text: Thank you for the opportunity to evaluate your patient. For Medicare and Medicare HMO plans, please review the plan of care and approve it. It will need to be FAXED BACK to us at [phone] for Medicare purposes. For Medicare only, by signing this I certify the plan of care. Please let me know if there are questions or concerns regarding this plan of care. Physician Signature: Date:
--- NOTE | 2024-06-11 09:38 | HP.PTDCSUM ---
Discharge Summary D/C summary: It has been my pleasure to treat MEEK ENCINAS referred by Dr. Edgar Arias MD, with the diagnosis of L SHLD IMPINGEMENT AND CHRONIC PAIN for a total of 7 visit(s). Discharge Date: Please see the following information for a summary of their discharge status. Subjective Subjective: I feel the best I have Pain L shoulder: Pain Intensity (Out of 10): 2 Overall Improvement % Improvement: 50 Objective Objective/Function: L shoulder pain 2/10 L shoulder ROM: flex= 135, abd= 135, ER= 0, IR= WNL L shoulder MMT: flex= 6, abd= 14, ER= 19, IR= 8 #F Pt is I with HEP Goals Goal 1:: DECREASE C/O L SHLD PAIN BY AT LEAST 80% TO EASE ADL AND RECREATIONAL FUNCTION. Goal 2:: PATIENT WILL HAVE L SHLD ROM WFL ALL PLANES WITHOUT C/O PAIN. Goal 3:: PATIENT WILL HAVE INCREASED L UE STRENGTH TO WITHIN 80% OF R UE TO IMPROVE FUNCTION Goal 4:: PATIENT WILL HAVE IMPROVED QUICK DASH SCORE BY AT LEAST 10 POINTS. Goal 5:: INDEP HEP Plan Plan: Discharge to HEP D/C Information d/c sentence: If there are questions or concerns regarding this patient's physical therapy, please feel free to call me at [phone]. Thank you for the referral of this patient. Sincerely, Rupesh Pickering, PT, ATC Balance/Gait/Functional tests Balance/Special Test Scores Quick DASH Score: 25.0000 Improvement % Improvement: 50
== END 2024-06-11 19:00 | disposition home or self-care (01) ==
LOC: PT 09:00
PROVIDERS: PCP Family Medicine; Referring Provider Orthopaedic Surgery; Visit Provider Orthopaedic Surgery
DX: M25.812 Other specified joint disorders, left shoulder (principal)
CPT/HCPCS: 97110; 97162; 97530

== ENCOUNTER 2024-10-26 09:00 | Outpatient (RCR) | payer MEDICARE, OTHER, SELFPAY ==
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
--- NOTE | 2024-10-26 10:00 | HP.PTDCSUM ---
Discharge Summary D/C summary: It has been my pleasure to treat MEEK ENCINAS referred by OVI Garcia, with the diagnosis of NECK PAIN AND R SHLD PAIN for a total of 28 visit(s). Discharge Date: 10/26/24 Please see the following information for a summary of their discharge status. Subjective Subjective: PATIENT REPORTS THAT IN THE MORNING SHE DOESN'T HAVE PAIN UNTIL ABOUT 1PM. 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 THERE HAVE ONLY BEEN 2 DAYS IN THE LAST COUPLE MONTHS THAT SHE HASN'T HAD PAIN ALL DAY. ONE DAY WAS AFTER A WORKOUT AND ONE DAY WAS AFTER A MASSAGE. STILL USING ICE AND EX NEEDED TO TRY TO HELP PAIN. THE PAIN IS IN THE R LATERAL SCAP REGION AROUND THE RIB AND AXILLA AREA ACCORDING TO WHERE PATIENT IS POINTING. PATIENT REPORTS SHE STILL HAS THE PAIN BUT SHE NOW HER ACTIVITY LEVEL IS MUCH BETTER. 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 I'M SEEING THAT I AM NOT FOCUSED ON TRYING TO FIGURE OUT HOW I AM GOING TO STAY COMFORTABLE DURING MEETINGS". IN GENERAL PATIENT STATES SHE ISN'T DISTRACTED BY HER PAIN NOW AND ISN'T CONCERNED ABOUT HURTING HERSELF. SHE REPORT SHE STILL WANTS TO GET TO WHERE SHE CAN PLAY TENNIS AGAIN. Pain R SCAP: Pain Intensity (Out of 10): 2 NECK PAIN: Pain Intensity (Out of 10): 0 R ribs: Pain Intensity (Out of 10): 3 Overall Improvement % Improvement: 90 Objective Objective/Function: PATIENT WAS SEEN TODAY FOR RE-ASSESSMENT OF PROGRESS TOWARD THE SET PT GOALS AND THE NEED FOR FURTHER PHYSICAL THERAPY VS READINESS FOR DISCHARGE. ASSESSMENT OF CURRENT ACTIVITY LEVEL AND INSTRUCTION IN APPROPRIATE MODIFICATAIONS TO CONTINUE TO PROGRESS TOWARD GOALS. UPON EXAM TODAY R RIB AND SCAP PAIN IS EASILY PROVOKED TO 3/10 WITH L THORACIC ROTATION. TODAY, ACTIVE ELEVATION OF R UE, R THORACIC ROTATION, R SHLD ABD AND THORACIC EXTENSION DOES NOT PROVOKE INCREASED PAIN. HER PAIN IS MORE LOCALIZED COMPARED TO LAST RE-CHECK WHEN SHE RETURNED FROM VACATION. HER SYMPTOMS ARE PLATEAUING AND SHE IS INDEP WITH BOTH LAND AND WATER EX PROGRAMS. SHE HAS BEEN INSTRUCTED IN APPROPRIATE SELF MGMT OF HER CONDITION AND SELF PROGRESSION OF STRENGTHENING TO TRY TO RETURN TO HER ACTIVITY GOALS. PATIENT IS APPROPRIATE FOR AND AGREEABLE TO DISCHARGE FROM PT AT THIS POINT. INSTRUCTED PATIENT TO PHYSICIAN FOR RE-ASSESSMENT NEEDED. Goals Goal 1:: DECREASE C/O R SHLD PAIN BY AT LEAST 70% TO EASE ADL'S Goal Progress: Goal Met Goal 2:: IMPROVE PERSONAL CARE, LIFTING, READING, SLEEP, WORK, DRIVING AND RECREATIONAL FUNCTIONAL WITH AT LEAST 10 POINT IMPROVEMENT IN NECK OSWESTRY SCORE. Goal Progress: Progressing Goal 3:: INSTRUCT IN PROPHYLAXIS Goal Progress: Goal Met Plan Plan: D/C D/C Information d/c sentence: If there are questions or concerns regarding this patient's physical therapy, please feel free to call me at [phone]. Thank you for the referral of this patient. Sincerely, Katy Workman, PT, Cert MDT Balance/Gait/Functional tests Balance/Special Test Scores Oswestry Neck Score: 18 Improvement % Improvement: 90
== END 2024-10-26 19:00 | disposition home or self-care (01) ==
LOC: PT 09:00
PROVIDERS: PCP Family Medicine; Referring Provider Student in an Organized Health Care Education/Training Program; Visit Provider Student in an Organized Health Care Education/Training Program
DX: M25.511 Pain in right shoulder (principal); M54.2 Cervicalgia
CPT/HCPCS: 97035; 97110; 97113; 97140; 97162; 97530

== ENCOUNTER → 2025-01-21 | Outpatient (CLI) | payer MEDICARE, OTHER, SELFPAY ==
--- OUTSIDE RECORDS SUMMARY | 2025-01-21 11:54 | XMS RPT_ITS | CCD ---
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 Gail Ko Primary Care Provider Charlene Whitaker Attending Provider Unavailable Dr. Gail Ko Referring Provider [phone] Dr. David Varghese Attending Provider Dr. David Varghese Other Provider Gail Ko MD Primary Care Provider EDGAR DOAN Referring Unavailabl e GAIL KO Primary Care Unavailable Dr. Gail Ko MD Primary Care Provider Dr. Edgar Doan MD Attending Provider Dr. Edgar Doan MD Referring Provider EDGAR DOAN Attending Unavailable EDGAR DOAN Referring Unavailable MIEDGABBY GAIL E Primary Care Unavailable EDGAR DOAN Attending Unavailable KORY MORIN Referring Unavailable MIEDGABBY GAIL Sarath Primary Care Unavailable EDGAR DOAN Referring Unavailable MIEDGABYB GAIL E Primary Care Unavailable SANDRO MENENDEZ Referring Unavailable MIEDEL, GAIL E Primary Care Unavailable SANDRO MENENDEZ Attending Unavailable STEFANI GAIL E Primary Care Unavailable Dr. Gail Ko MD Primary Care Physician [phone] Dheeraj Reis Attending Physician Dheeraj Reis Referring Provider Gail Ko Primary Care Unavailable Dheeraj Jc Attending Unavailable Dheeraj Jc Referring Unavailable Gail Ko Referring Unavailable Stefani Gail Primary Care Unavailable Gail Ko Attending Unavailable Edgar Doan Attending Unavailable Edgar Doan Referring Unavailable Gail Ko Primary Care Unavailable Dheeraj Jc Attending Unavailable Gail Ko Primary Care Unavailable Gail Ko Referring Unavailable Zaheer Acevedo Attending Unavailable Gail Ko Primary Care Unavailable Allergies Allergy Classification Reported Allergen(s) Allergy Type Date of Onset Reaction(s) Facility (8 sources) Cephalexin Drug Allergy [address] [facility] Comment on above: headache (8 sources) Nitrofurantoin Drug Allergy [address] [facility] (19 sources) predniSONE; Translations: [PREDNISONE] Drug Allergy [address] [facility] (1 source) Cephalexin Drug Allergy [address] [facility] Repository (1 source) Nitrofurantoin Drug Allergy [address] [facility] (1 source) predniSONE Drug Allergy [address] [facility] Medications Current Medications Medication Drug Class(es) Dates Sig (Normalized) Sig (Original) celecoxib 100 mg oral capsule (1 source) Nonsteroidal Anti-inflammatory Drug Start: 06-22-2024 take 1 capsule by mouth twice daily cyclobenzaprine hydrochloride 5 mg oral tablet (2 sources) Muscle Relaxant Start: 07-27-2024 cyclobenzaprine (FLEXERIL) 5 mg tablet Take 5 mg by mouth as needed for muscle spasm. 07/27/2024 Active DULoxetine 20 mg delayed release oral capsule (2 sources) Serotonin and Norepinephrine Reuptake Inhibitor Start: 08-05-2024 take 1 capsule by mouth once daily DULoxetine (CYMBALTA) 20 mg capsule Take 1 capsule by mouth once daily. 08/05/2024 Active estradiol 0.1 mg/ml vaginal cream (11 sources) Estrogen Start: 04-13-2014 estradiol (ESTRACE) 0.01 % (0.1 mg/gram) vaginal cream Apply a pea sized amount to the urethra 3 times a week 1 Tube 3 04/13/2014 Active FLUoxetine 20 mg oral capsule (11 sources) Serotonin Reuptake Inhibitor take 1 capsule by mouth once daily FLUoxetine (PROZAC) 20 mg capsule Take 20 mg by mouth once daily. Active levothyroxine sodium 0.1 mg oral tablet (20 sources) l-Thyroxine Start: 09-15-2018 take 1 tablet by mouth once daily Levothyroxine 50 mcg cap Take 75 mcg by mouth. Active phenazopyridine hydrochloride 200 mg oral tablet (11 sources) Start: 10-04-2018 take 1 tablet by mouth every eight hours as needed phenazopyridine (PYRIDIUM) 200 mg tablet Take 1 tablet by mouth three times daily as needed. 6 tablet 10/04/2018 Active prochlorperazine 10 mg oral tablet (19 sources) Phenothiazine Start: 09-15-2018 psyllium 400 mg oral capsule (8 sources) Start: 10-29-2021 SUMAtriptan 50 mg oral tablet (20 sources) Serotonin-1b and Serotonin-1d Receptor Agonist Start: 10-07-2017 SUMATRIPTAN SUCC INATE (IMITREX ORAL) Take by mouth. Active Completed/Discontinued Medications Medication Drug Class(es) Dates Sig (Normalized) Sig (Original) betamethasone 3 mg/ml / betamethasone acetate 3 mg/ml injectable suspension (4 sources) Corticosteroid Start: 08-23-2024 End: 08-23-2024 betamethasone acetate-betamethason e sodium phosphate 6 mg injection (CELESTONE) Start: 08-23-2024 End: 08-23-2024 6 mg, Injection - FOR ORTHO USE ONLY, ONCE, 1 dose, Starting on Fri08/23/24 at 1031, Until Fri08/23/24 at 1031 Start: 03-09-2024 End: 03-09-2024 betamethasone acetate-betame thasone sodium phosphate 6 mg injection (CELESTONE) Start: 03-09-2024 End: 03-09-2024 6 mg, Injection - FOR ORTHO USE ONLY, ONCE, 1 dose, Starting on Fri03/09/24 at 0941, Until Fri03/09/24 at 0941 cephalexin 500 mg oral capsule (8 sources) Cephalosporin Antibacterial Start: 11-30-2018 End: 10-29-2021 take 1 capsule by mouth twice daily Cephalexin 500 MG capsule Discontinued 500 mg PO TWICE A DAY November 30, 2018 12:00am October 29, 2021 4:10pm 10 ml lidocaine hydrochloride 10 mg/ml injection (4 sources) Antiarrhythmic, Amide Local Anesthetic Start: 08-23-2024 End: 08-23-2024 lidocaine (PF) 10 mg/mL (1 %) 5 mL injection (XYLOCAINE) Start: 08-23-2024 End: 08-23-2024 5 mL, Injection - FOR ORTHO USE ONLY, ONCE, 1 dose, Starting on Fri08/23/24 at 1031, Until Fri08/23/24 at 1031 Start: 03-09-2024 End: 03-09-2024 lidocaine (PF) 10 mg/mL (1 % ) 5 mL injection (XYLOCAINE) Start: 03-09-2024 End: 03-09-2024 5 mL, Injection - FOR ORTHO USE ONLY, ONCE, 1 dose, Starting on Fri03/09/24 at 0941, Until Fri03/09/24 at 0941 Problems Active Problems Problem Classification Problem Date Documented Da te Episodic/Chronic Other and unspecified benign neoplasm (8 sources) History of polyp of colon; Translations: [Personal history of colonic polyps] 09-25-2021 Episodic Other and unspecified benign neoplasm (2 sources) Personal history of colonic polyps; Translations: [Personal history of colonic polyps] Episodic Other bone disease and musculoskeletal deformities (20 sources) Segmental and somatic dysfunction; Translations: [Segmental and somatic dysfunction of lumbar region] 07-27-2019 Episodic Other connective tissue disease (1 source) Spasm; Translations: [Other muscle spasm] 07-26-2024 Episodic Other connective tissue disease (1 source) Impingement syndrome of right shoulder region; Translations: [Impingement syndrome of right shoulder] 08-30-2024 Episodic Other fractures (1 source) Fracture of seventh thoracic vertebra; Translations: [Wedge compression fracture of T7-T8 vertebra, initial encounter for closed fracture] 07-26-2024 Episodic Other nervous system disorders (2 sources) Other chronic pain; Translations: [Chronic right shoulder pain] Onset: 07-28-2024 Chronic Other non-traumatic joint disorders (3 sources) Pain in left shoulder; Translations: [Pain in joint, shoulder region] Onset: 03-09-2024 03-03-2024 Episodic Other non-traumatic joint disorders (1 source) Chronic pain of left upper limb; Translations: [Pain in left shoulder] 03-09-2024 Episodic Other non-traumatic joint disorders (2 sources) Disorder of shoulder; Translations: [Other specified joint disorders, unspecified shoulder] 03-09-2024 Episodic Other non-traumatic joint disorders (1 source) Chronic pain of right upper limb; Translations: [Pain in right shoulder] 08-23-2024 Episodic Other non-traumatic joint disorders (1 source) Other specified joint disorders, unspecified shoulder; Translations: [Shoulder impingement] Onset: 08-23-2024 Episodic Spondylosis; intervertebral disc disorders; other back problems (1 source) Degeneration of cervical intervertebral disc; Translations: [Other cervical disc degeneration, unspecified cervical region] 06-22-2024 Chronic Spondylosis; intervertebral disc disorders; other back problems (17 sources) Backache; Translations: [Dorsalgia, unspecified] Onset: 06-22-2024 08-18-2019 Episodic Unclassified (1 source) Right shoulder pain, unspecified chronicity 08-11-2024 Past or Other Problems Problem Classification Problem Date Documented Da te Episodic/Chronic Other non-traumatic joint disorders (6 sources) Pain in right shoulder; Translations: [Pain in joint, shoulder region] Onset: 06-22-2024 08-11-2024 Episodic Results Test Name Value Interpretation Reference Range Facility PT D/C Summary (1)on 025 PT D/C Summary (1) [facility] [address] [place] [address] [address] [place] [address] / REHABILITATION SERVICES DISCHARGE SUMMARY MR#: [id number] Acct: [id number] Name: KRISTINA ENCINAS Rep #: [id number] : 1945 79 From: Katy Workman PT, Cert. MDT Referring Dr.: OVI Garcia Status: REG RCR Insurance: MEDICARE PART A B [facility] Discharge Summary D/C summary: It has been my pleasure to treat KRISTINA ENCINAS referred by OVI Garcia, with the diagnosis of NECK PAIN AND R SHLD PAIN for a total of 28 visit(s). Discharge Date: 10/26/24 Please see the following information for a summary of their discharge status. Subjective Subjective: PATIENT REPORTS THAT IN THE MORNING SHE DOESN'T HAVE PAIN UNTIL ABOUT 1PM. 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 THERE HAVE ONLY BEEN 2 DAYS IN THE LAST COUPLE MONTHS THAT SHE HASN'T HAD PAIN ALL DAY. ONE DAY WAS AFTER A WORKOUT AND ONE DAY WAS AFTER A MASSAGE. STILL USING ICE AND EX NEEDED TO TRY TO HELP PAIN. THE PAIN IS IN THE R LATERAL SCAP REGION AROUND THE RIB AND AXILLA AREA ACCORDING TO WHERE PATIENT IS POINTING. PATIENT REPORTS SHE STILL HAS THE PAIN BUT SHE NOW HER ACTIVITY LEVEL IS MUCH BETTER. 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 I'M SEEING THAT I AM NOT FOCUSED ON TRYING TO FIGURE OUT HOW I AM GOING TO STAY COMFORTABLE DURING MEETINGS. IN GENERAL PATIENT STATES SHE ISN'T DISTRACTED BY HER PAIN NOW AND ISN'T CONCERNED ABOUT HURTING HERSELF. SHE REPORT SHE STILL WANTS TO GET TO WHERE SHE CAN PLAY TENNIS AGAIN. Pain R SCAP: Pain Intensity (Out of 10): 2 NECK PAIN: Pain Intensity (Out of 10): 0 R ribs: Pain Intensity (Out of 10): 3 Overall Improvement % Improvement: 90 Objective Objective/Function: PATIENT WAS SEEN TODAY FOR RE-ASSESSMENT OF PROGRESS TOWARD THE SET PT GOALS AND THE NEED FOR FURTHER PHYSICAL THERAPY VS READINESS FOR DISCHARGE. ASSESSMENT OF CURRENT ACTIVITY LEVEL AND INSTRUCTION IN APPROPRIATE MODIFICATAIONS TO CONTINUE TO PROGRESS TOWARD GOALS. UPON EXAM TODAY R RIB AND SCAP PAIN IS EASILY PROVOKED TO 3/10 WITH L THORACIC ROTATION. TODAY, ACTIVE ELEVATION OF R UE, R THORACIC ROTATION, R SHLD ABD AND THORACIC EXTENSION DOES NOT PROVOKE INCREASED PAIN. HER PAIN IS MORE LOCALIZED COMPARED TO LAST RE-CHECK WHEN SHE RETURNED FROM VACATION. HER SYMPTOMS ARE PLATEAUING AND SHE IS INDEP WITH BOTH LAND AND WATER EX PROGRAMS. SHE HAS BEEN INSTRUCTED IN APPROPRIATE SELF MGMT OF HER CONDITION AND SELF PROGRESSION OF STRENGTHENING TO TRY TO RETURN TO HER ACTIVITY GOALS. PATIENT IS APPROPRIATE FOR AND AGREEABLE TO DISCHARGE FROM PT AT THIS POINT. INSTRUCTED PATIENT TO PHYSICIAN FOR RE-ASSESSMENT NEEDED. Goals Goal 1:: DECREASE C/O R SHLD PAIN BY AT LEAST 70% TO EASE ADL'S Goal Progress: Goal Met Goal 2:: IMPROVE PERSONAL CARE, LIFTING, READING, SLEEP, WORK, DRIVING AND RECREATIONAL FUNCTIONAL WITH AT LEAST 10 POINT IMPROVEMENT IN NECK OSWESTRY SCORE. Goal Progress: Progressing Goal 3:: INSTRUCT IN PROPHYLAXIS Goal Progress: Goal Met Plan Plan: D/C D/C Information d/c sentence: If there are questions or concerns regarding this patient's physical therapy, please feel free to call me at [phone]. Thank you for the referral of this patient. Sincerely, Katy Workman, PT, Cert MDT Balance/Gait/Function al tests Balance/Special Test Scores Oswestry Neck Score: 18 Improvement % Improvement: 90 10/26/24 1001 CC: OVI Garcia; Dr. Gail Ko MD HANY Signed Normal [facility] CNOVon 08-23-2024 CNOV Office Visit (ORTHWS ) KRISTINA ENCINAS ([id number]) 1945 F Date Time Provider Department 08/23/24 10:00 AM EDGAR DOAN During your visit today, we recorded the following information about you: Edgar Doan MD 08/30/2024 9:15 AM Signed Large Joint Arthro/Inj: R subacromial bursa 08/23/2024 10:31 AM The procedure site was prepped in the usual sterile fashion. Site: R subacromial bursa Medications: 6 mg betamethasone acetate-betamethasone sodium phosphate 6 mg/mL Anesthetics: 5 mL lidocaine (PF) 10 mg/mL (1 %) Outcome: Tolerated well, no immediate complications Post-injection instructions were reviewed with the patient and the patient voiced understanding of these instructions. Informed Consent Consent Obtained: Verbal Bigelow Protocol A moment to CARE was completed. SIGN IN Sign in communication not applicable due to emergent procedure. Personnel directly involved with the procedure wore the appropriate PPE. Special Equipment: N/A Patient/Surrogate Stated/Verified: Patient name, Date of , Relevant allergies and Intended procedure TIME OUT Relevant labs, photos, and/or imaging studies have been reviewed. Consent documented and matches the intended procedure. Correct side/site marked and visible. Medications required for procedure verified. No fire risk assessment and interventions applicable. No implant(s) inserted. SIGN OUT No specimen collected. All instruments, equipment, possible retained foreign bodies accounted for. No post-procedure POC communication to the patient or surrogate applicable. No post-procedure POC communication to the patient's multidisciplinary team (including the bedside nurse for hospitalized patients) applicable. Edgar Doan MD Department of Orthopaedics [facility] [address] [place] [address] Dept: [phone] Dept August 23, 2024 CHIEF COMPLAINT: Pain and Established Patient of the Right Shoulder (Last seen 03/09/24 left shoulder pain with injection given) CLAUDIA Encinas is a 79-year-old female presenting with right shoulder pain. Kristina reports right shoulder pain located at the posterior lateral corner and rear deltoid muscle. She notes that she has been protecting her shoulder, which she believes may be contributing to the pain. She denies any recent trauma or injury to the shoulder. Kristina has a history of left shoulder pain that was successfully treated with an injection and physical therapy. Kristina has been gradually increasing her physical activity and is able to jog approximately 2 miles at a time without difficulty. She recently returned from a vacation in [facility], where she engaged in walking and riding activities without any issues. She enjoys jogging and tennis but has not participated in tennis recently. She denies any problems with activities such as walking, riding, or jogging. ASSESSMENT: M25.511, G89.29 Chronic right shoulder pain (primary encounter diagnosis) M25.819 Shoulder impingement M75.41 Impingement syndrome of right shoulder 1. Chronic right shoulder pain (M25.511) Shoulder impingement (M25.819) Impingement syndrome of right shoulder (M75.41) X-ray reveals minimal arthritis and a very small bone spur; joint space is well-preserved. Physical exam shows good range of motion, mild tenderness over the posterior lateral corner and rear deltoid, minor impingement signs, and full strength in rotator cuff testing. Pain location suggests muscular strain rather than major structural issues. - Administered corticosteroid injection to the right shoulder. - Advised patient to monitor symptoms and avoid activities that exacerbate pain. - Follow-up as needed if symptoms persist or worsen. Will continue to monitor patient for Chronic right shoulder pain (primary encounter diagnosis) Shoulder impingement Impingement syndrome of right shoulder, patient to schedule visit as per follow up discussed. OBJECTIVE: Ms. Kristina Encinas is a pleasant 79 year old in no apparent distress. Gen:There were no vitals taken for this visit. nl development, non obese, no deformities ENT: Normocephalic, normal hearing, moist mucosa CV: Pulses:Radial= 2+ and symmetric, capillary refill < 2 secs, no peripheral edema/varicosities Skin: no rash, bruising or lesions. Good turgor. Psych: cooperative and appropriate, alert and oriented x 3, good mood and affect. Musculoskeletal: - Musculoskeletal: - Right Shoulder: - No obvious swelling; mild tenderness over the posterolateral corner and rear deltoid. - ROM: Good. - Provocative tests: Minor impingement signs; full strength on rotator cuff testing. Imaging: Labs: Tests: Imaging: - Right Shoulder X-ray: Minimal arthritic changes, tiny bony outgrowth suggestive of a bone spur, preserved joint space. Supportin (more content not included)... Normal [facility] Large Joint Arthro/Inj: R lara bacromial bursaon 08-23-2024 Edgar Doan MD 08/30/2024 9:15 AM Large Joint Arthro/Inj: R subacromial bursa 08/23/2024 10:31 AM The procedure site was prepped in the usual sterile fashion. Site: R subacromial bursa Medications: 6 mg betamethasone acetate-betamethasone sodium phosphate 6 mg/mL Anesthetics: 5 mL lidocaine (PF) 10 mg/mL (1 %) Outcome: Tolerated well, no immediate complications Post-injection instructions were reviewed with the patient and the patient voiced understanding of these instructions. Informed Consent Consent Obtained: Verbal Bigelow Protocol A moment to CARE was completed. SIGN IN Sign in communication not applicable due to emergent procedure. Personnel directly involved with the procedure wore the appropriate PPE. Special Equipment: N/A Patient/Surrogate Stated/Verified: Patient name, Date of , Relevant allergies and Intended procedure TIME OUT Relevant labs, photos, and/or imaging studies have been reviewed. Consent documented and matches the intended procedure. Correct side/site marked and visible. Medications required for procedure verified. No fire risk assessment and interventions applicable. No implant(s) inserted. SIGN OUT No specimen collected. All instruments, equipment, possible retained foreign bodies accounted for. No post-procedure POC communication to the patient or surrogate applicable. No post-procedure POC communication to the patient's multidisciplinary team (including the bedside nurse for hospitalized patients) applicable. [facility] XR SHLDR >/=3V AP/RODGER AP/OTH R RTon 08-23-2024 XR SHLDR >/=3V AP/RODGER AP/OTHR RT * * *Final Report* * * DATE OF EXAM: Aug 23 2024 9:49AM [id number] [id number] - XR SHLDR >/=3V AP/RODGER AP/OTHR RT / PROCEDURE REASON: Right shoulder pain, unspecified chronicity * * * * Physician Interpretation * * * * EXAMINATION / TECHNIQUE: XR SHLDR >/=3V AP/RODGER AP/OTHR RT HISTORY: PT STATES RIGHT SHOULDER PAIN X 3 MONTHS Right shoulder pain, unspecified chronicity COMPARISON: None. RESULT: No acute fracture or osseous malalignment is identified. The joint spaces are preserved. IMPRESSION: No acute bony abnormality. Wheel Blocker: SKYLAR Transcribe Date/Time: Aug 26 2024 8:56P Dictated by : MARTÍN LAWRENCE MD This examination was interpreted and the report reviewed and electronically signed by: MARTÍN LAWRENCE MD on Aug 26 2024 8:56PM EST [id number] N [facility] CNP[facility] Telephone (PNMDNA) KRISTINA ENCINAS ([id number]) 1945 F Date Time Provider Department 07/28/24 SANDRO MENENDEZ During your visit today, we recorded the following information about you: Salvador Adan, RN 07/28/2024 1:[address] Menendez reviewed patient's thoracic CT scan. Thoracic CT Scan shows: Chronic T7 compression fracture Dr. Menendez recommends more aggressive physical therapy (PT) to target muscle tenseness. Verdeeco message sent. Salvador Adan RN 07/28/2024 1:27 PM Signed Verdeeco message read: Last read by Kristina Encinas at 1:13PM on 07/28/2024. Allergies As of Date: 07/28/2024 Noted Allergy Reaction PREDNISONE 03/09/2024 8 - GI Upset Date Reviewed: 07/26/2024 Reviewed by: Orly Ellis MA - Fully Assessed Reason for Visit: Results [95] Cmt: Thoracic CT Scan Prescriptions as of 07/28/2024 - levothyroxine (SYNTHROID) 100 mcg tablet Take 1 tablet by mouth once daily. - prochlorperazine (COMPAZINE) 10 mg tablet Take 1 tablet by mouth every 6 hours as needed for Nausea/Vomiting. - SUMAtriptan (IMITREX) 50 mg tablet Take 1-2 tablets by mouth as directed. At onset of migraine; may repeat in 2 HR if not resolved. - phenazopyridine (PYRIDIUM) 200 mg tablet Take 1 tablet by mouth three times daily as needed. - FLUoxetine (PROZAC) 20 mg capsule Take 20 mg by mouth once daily. - estradiol (ESTRACE) 0.01 % (0.1 mg/gram) vaginal cream Apply a pea sized amount to the urethra 3 times a week - Levothyroxine 50 mcg cap Take 75 mcg by mouth. - SUMATRIPTAN SUCCINATE (IMITREX ORAL) Take by mouth. Problem List As Of Date: 07/28/2024 (None) Encounter Status:Closed by SALVADOR ADAN on 07/28/24 Normal [facility] CT THORACIC SPINE WO IVCONon 07-28-2024 CT THORACIC SPINE WO IVCON * * *Final Report* * * DATE OF EXAM: Jul 28 2024 8:38AM [facility] 0514 - CT THORACIC SPINE WO IVCON / PROCEDURE REASON: multiple diagnoses * * * * Physician Interpretation * * * * EXAMINATION: CT THORACIC SPINE WO IVCON CLINICAL HISTORY: Chronic midline thoracic back pain Chronic midline thoracic back pain TECHNIQUE: Spiral, high resolution unenhanced axial images were obtained from the cervicothoracic junction to the thoracolumbar junction with sagittal and coronal planar reconstructions. MQ: [id number] CT Radiation dose: Integrated Dose-Length Product (DLP) for this visit = 1175 mGy*cm. CT Dose Reduction Employed: Automated exposure control(AEC) and iterative recon COMPARISON: CT chest 01/16/2024 RESULT: Counting reference: Cervicothoracic and lumbosacral junctions. Assume first thoracic rib is the T1 level. For the purposes of this report, L4-5 is considered the level of the iliac crest and assume there are 5 lumbar-type vertebrae. Anatomic variant: None. Office Services Coordinator (topogram) images: No additional findings Alignment: Dextrocurvature of the thoracic spine, apex at T7-T8. Accentuation of normal thoracic kyphosis centered at T7. Minimal retrolisthesis of T12 upon L1. Bone marrow / fracture: Lucent lesion within the T2 vertebral body likely represents an intraosseous hemangioma. Chronic anterior wedging of the T7 vertebral body with similar superior endplate deformity and approximately 25-30% loss of vertebral body height (grossly unchanged since 01/16/2024). Minimal superior endplate deformity at T8, also unchanged. No evidence of new/acute fracture. Multilevel disc height loss and degenerative endplate changes, most pronounced at T11-12. Multilevel facet arthropathy, most pronounced at T3-4, T4-5 and T6-7 on the right. The bones are osteopenic. Thoracic paraspinal soft tissues: No significant prevertebral edema. Large right renal cyst measuring up to 5.2 cm. Canal and foramina: No high-grade thoracic canal or neural foraminal stenosis, on the basis of CT. There are likely mild to moderate scattered neural foraminal stenoses due to facet arthropathy, most pronounced at T1-2, T2-3, T3-4, and T6-7 on the right. IMPRESSION: No evidence of acute fracture or traumatic malalignment within the cervical spine. Similar chronic compression deformity of the T7 vertebral body. Mild multilevel degenerative changes without evidence of high-grade thoracic canal stenosis on the basis of CT. Anatomic Thoracic/Lumbar Variant: None. L4-5 is considered the level of the iliac crest and assume there are 5 lumbar-type vertebrae. Wheel Blocker: SKYLAR Transcribe Date/Time: Jul 28 2024 9:40A Dictated by : CHRIS BLACK MD This examination was interpreted and the report reviewed and electronically signed by: CHRIS BLACK MD on Jul 28 2024 9:51AM EST [id number] N Normal [facility] CT Thoracic spine WO contras ton 07-28-2024 IMPRESSION: No evidence of acute fracture or traumatic malalignment within the cervical spine. Similar chronic compression deformity of the T7 vertebral body. Mild multilevel degenerative changes without evidence of high-grade thoracic canal stenosis on the basis of CT. Anatomic Thoracic/Lumbar Variant: None. L4-5 is considered the level of the iliac crest and assume there are 5 lumbar-type vertebrae. Wheel Blocker: SureDone Transcribe Date/Time: Jul 28 2024 9:40A Dictated by : CHRIS BLACK MD This examination was interpreted and the report reviewed and electronically signed by: CHRIS BLACK MD on Jul 28 2024 9:51AM EST DIVISION OF RADIOLOGY * * *Final Report* * * DATE OF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 a compression fracture. She denies any numbness/tingling in the arms or legs. She was prescribed a muscle relaxer and it did not help her. She states she had an infusion of Toradol while in the hospital and it did give her temporary relief. She applies ice and heat. She has tried massage therapy as well as acupuncture and she states it is all temporary relief. She states she had an injection in the left shoulder in March 2024. She denies any physical therapy for the neck or back. But she did do therapy for her left shoulder pain which started 4 weeks ago and she goes 2x per week. Patient is currently still in therapy. Icing her right shoulder and using heat does give her some relief. However after she stopped icing or using heat the pain comes back. She has been taking gabapentin and cyclobenzaprine as needed for her pain, the gabapentin she just takes periodically but she says it causes her to feel drowsy. No diabetes, no heart or lung issues. no blood thinners. She doesn't like to take ibuprofen over the counter due it causing some indigestion, she will take Tylenol as needed. Ortho Exam General General: Yes no acute distress Neurologic: Yes alert and Yes oriented x3 Spine SPINE TESTING CERVICAL THORACIC LUMBAR Musculoskeletal Strength 0=absent - 5=normal Details: Neurological exam of the upper extremities shows 5X5 power. Normal sensation across all dermatomes. No hyperreflexia. No midline or paraspinal tenderness. Coding Level of Care Code Off vis,new,level 4 Diagnoses Cervical radiculopathy M54.12 Degenerative disc disease, cervical M50.30 Assessment and Plan Assessment and Plan (1) Cervical radiculopathy: Status: Acute (2) Degenerative disc disease, cervical: (more content not included)... Normal [facility] Thoracic Spine 2 Viewson Thoracic Spine 2 Views [facility] Imaging Services [address] [place] [address] Thoracic Spine 2 Views MR#: [id number] Acct: [id number] Name: KRISTINA ENCINAS Rep #: [id number] : 1945 F 79 From: David Lyons MD PCP: Dr. Gail Ko MD Status: DEP AMB Study: Thoracic Spine 2 Views Date of Exam: 06/22/24 Exam# [id number] Ordering Dr: Dheeraj Jc PROCEDURE: THORACIC SPINE 2 VIEWS 06/22/2024 REASON FOR EXAM: CHRONIC PAIN TECHNIQUE: Two views thoracic spine COMPARISON: None available FINDINGS: No fracture or malalignment identified. The disc spaces appear within limits. Multilevel spondylosis noted. RAD/Thoracic Spine 2 Views IMPRESSION: Multilevel spondylosis without fracture or malalignment identified. Reading Location: [id number] CC: OVI Garcia; Dr. Gail Ko MD Wheel Blocker: Signed Normal [facility] PT D/C Summary (1)on 025 PT D/C Summary (1) [facility] Physical Therapy [facility] [address] [place] [address] / REHABILITATION SERVICES DISCHARGE SUMMARY MR#: [id number] Acct: [id number] Name: KRISTINA ENCINAS Rep #: [id number] : 1945 79 From: Rupesh Pickering PT, ATC Referring Dr.: Dr. Edgar Doan MD Status: R EG RCR Insurance: MEDICARE PART A B [facility] Discharge Summary D/C summary: It has been my pleasure to treat KRISTINA ENCINAS referred by Dr. Edgar Doan MD, with the diagnosis of L SHLD IMPINGEMENT AND CHRONIC PAIN for a total of 7 visit(s). Discharge Date: Please see the following information for a summary of their discharge status. Subjective Subjective: I feel the best I have Pain L shoulder: Pain Intensity (Out of 10): 2 Overall Improvement % Improvement: 50 Objective Objective/Function: L shoulder pain 2/10 L shoulder ROM: flex= 135, abd= 135, ER= 0, IR= WNL L shoulder MMT: flex= 6, abd= 14, ER= 19, IR= 8 #F Pt is I with HEP Goals Goal 1:: DECREASE C/O L SHLD PAIN BY AT LEAST 80% TO EASE ADL AND RECREATIONAL FUNCTION. Goal 2:: PATIENT WILL HAVE L SHLD ROM WFL ALL PLANES WITHOUT C/O PAIN. Goal 3:: PATIENT WILL HAVE INCREASED L UE STRENGTH TO WITHIN 80% OF R UE TO IMPROVE FUNCTION Goal 4:: PATIENT WILL HAVE IMPROVED QUICK DASH SCORE BY AT LEAST 10 POINTS. Goal 5:: INDEP HEP Plan Plan: Discharge to HEP D/C Information d/c sentence: If there are questions or concerns regarding this patient's physical therapy, please feel free to call me at [phone]. Thank you for the referral of this patient. Sincerely, Rupesh Pickering, PT, ATC Balance/Gait/Function al tests Balance/Special Test Scores Quick DASH Score: 25.0000 Improvement % Improvement: 50 06/11/24 0938 CC: Dr. Edgar Doan MD; Dr. Gail Ko MD [facility] Signed Normal [facility] Inital Evaluation (1) - PTon 05-19-2024 Inital Evaluation (1) - PT [facility] Physical Therapy [facility] [address] [place] [address] / REHABILITATION SERVICES INITIAL EVALUATION MR#: [id number] Acct: [id number] Name: KRISTINA ENCINAS Rep #: [id number] : 1945 79 From: Katy Workman PT Cert. MDT Referring Dr.: Dr. Edgar Doan MD Status: R EG RCR Insurance: MEDICARE PART A B [facility] Patient's Visit Information Visit Information Visit Information: KRISTINA ENCINAS is a 79 year old F referred to Physical Therapy by Dr. Edgar Doan MD with a diagnosis of L SHLD IMPINGEMENT AND CHRONIC PAIN. Date of Evaluation: 05/19/24 Physical Therapist: Katy Workman PT, Cert MDT Visit Plan Frequency: 2-3x /Week Duration: 4-6 Weeks Plan: L SHOULDER MODALITIES NEEDED TO DECREASE PAIN AND INFLAMMATION. FOCUS ON L SHOULDER SCAPULAR STRENGTH AND STABILIZATION EXERCISE. POSTURE CORRECTION/STRENGTHEN ING. L SHLD JT MOBILIZATION AND STRETCHING TO HELP RESTORE ROM. HEP INST. Subjective Subjective: Work/Leisure: RETIRED. 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 Present symptoms: MILD L SHOULDER PAIN AND CLICKING CURRENTLY IN THE FRONT AND BACK. DENIES L UE NUMBNESS AND TINGLING. Present since: 2-3 YEARS AGO Getting Better, Getting Worse or Staying the Same: GETTING BETTER Pain Scale: Worst - 4/10 Least - 0/10 Currently: 0/10 AT REST BUT PAIN WITH MVMT. Commenced as a result of: NO APPARENT REASON Symptoms at onset: L SHOULDER AND UPPER ARM PAIN Worse: USING IT, RIDING IN THE RV, DRIVING Better: DOING THE EX'S, SWIMMING, INJECTION, HOT SHOWER Disturbed sleep: NO Previous history/Previous treatment: L SHOULDER PAIN FOR A FEW YEARS - UNTREATED This episode: 03/09/24 L SHLD CORTISONE INJECTION BY DR. EDGAR DOAN AND EX'S THAT PATIENT HAS BEEN DOING WHILE ON TRIP. DR. DOAN ALSO SUGGESTED PT SO SHE IS HERE NOW UPON RETURN FROM THE TRIP. SHE REPORTS THE SHOT HELPED RIGHT AWAY. EX'S DESCRIBED INCLUDE: PENDULUM, 3LB IR, ER, SHLD ABD, BICEP CURLS, TRI KICK BACKS, PRONE Y'S, T'S AND W'S AND BAND SHLD FLEX Imaging: PATIENT REPORTS X-RAY'S LOOKED GOOD. PMH/Recent major surgery: R UPPER BACK AND FLANK PAIN SINCE DEC 2023 - WENT TO ED - STILL HAVING PAIN - TREATING IT WITH MASSAGE, ICE AND HEAT. ALSO HAVING L KNEE PAIN. HYPOTHYROIDISM. Objective Objective: Sitting Posture/Standing Posture: FAIR. MILD FH AND SHLD'S Active Correction of posture: ABLE TO CORRECT. Other Observations: INDEP GAIT AND TRANSFERS. Sensory deficit: ANNALISA UE LIGHT TOUCH SENSATION GROSSLY INTACT AND SYMMETRICAL ROM deficit: AROM L SHLD FLEX 148 DEG (STANDING), PROM (SUPINE) 153 DEG, SCAPTION (STANDING) WFL, IR/ER 65/70 DEG (SUPINE W/55 DEG ABD). PATIENT C/O ERP WITH ROM TESTING ALL PLANES. SHE ALSO HAD CLICKING WITH ROM TESTING INTO ABD, IR AND ER. Motor deficit: SHLD FLEX L 7.3, R 13.6 LBS, EXT L 4.8, R 10.3 LBS, ABD L 5.1, R 15.3 LBS, ER L 4.5, R 12.9 LBS, IR L 9.3, R 15.6 LBS, ELBOW FLEX L 7.8, R 13.8 LBS, EXT L 6.2, R 10.2 LBS. PATIENT C/O MILD L SHLD PAIN WITH SHLD STRENGTH TESTING ALL PLANES. Cervical Mvmt Loss: Flex: NIL Pro: NIL Ext: MIN Ret: MIN RSB: MIN LSB: MIN R Rot: MIN L Rot: NIL PATIENT REPORTS A LITTLE PULLING ON R SIDE OF HER NECK WITH NECK ROM TESTING. Postural strength: GOOD Palpation: TENDERNESS WITH PALPATION OF L POSTERIOR SHLD JOINT Balance/Special Test Scores Quick DASH Score: 36.3625 Goals Goal 1:: DECREASE C/O L SHLD PAIN BY AT LEAST 80% TO EASE ADL AND RECREATIONAL FUNCTION. Goal Time Frame: 4-6 Weeks Goal 2:: PATIENT WILL HAVE L SHLD ROM WFL ALL PLANES WITHOUT C/O PAIN. Goal Time Frame: 4-6 Weeks Goal 3:: PATIENT WILL HAVE INCREASED L UE STRENGTH TO WITHIN 80% OF R UE TO IMPROVE FUNCTION Goal Time Frame: 4-6 Weeks Goal 4:: PATIENT WILL HAVE IMPROVED QUICK DASH SCORE BY AT LEAST 10 POINTS. Goal Time Frame: 4-6 Weeks Goal 5:: INDEP HEP Goal Time Frame: 4-6 Weeks Rehabilitation Potential Physical Therapy Diagnosis: L SHLD TENDERNESS, TIGHTNESS AND WEAKNESS. Rehabilitation Potential: Good Anticipated Interventions Patient/Client Instruction: Educate patient on: Condition, Plan of Care and Risk Factors For the Purpose of:: To improve self management Therapeutic Exercise to Include: Strength training, Postural training, Flexibilty training and Scapular Strength/Stabilizatio n For the Purpose of:: To decrease pain, To increase ROM, To improve muscle performance and motor function, To increase tolerance to activity/condition/po sition, To improve ability of physical actions for home/community/work/l eisure, To increase flexibility/ROM and To improve self management Cryotherapy (ice pack, ice massage): Yes Thermo therapy (hot pack): Yes Ultrasound (thermal/non thermal): Yes For the Purpose of:: To decrease pain, To decrease swelling/inflammation and To improve nutrient delivery to tissue Text: (more content not included)... Normal [facility] 05-11-2024 [facility] Telephone (JAREN) KRISTINA ENCINAS ([id number]) 1945 F Date Time Provider Department 05/11/24 EDGAR DOAN During your visit today, we recorded the following information about you: Luma French, RN 05/11/2024 11:42 AM Signed Patient calling today for a referral for PT She would like to go to [facility] in [place] PA-C 05/12/2024 8:11 AM Signed PT order placed in [facility] on 03/09/24 that can be printed for patient. ZION Olsen Kelli, RN 05/12/2024 8:35 AM Signed Order faxed to [facility] [employer] [facility] [phone] Spoke with patient Patient verbalized understanding. Allergies As of Date: 05/11/2024 Noted Allergy Reaction PREDNISONE 03/09/2024 8 - GI Upset Date Reviewed: 03/09/2024 Reviewed by: Edgar Doan MD - Fully Assessed Reason for Visit: Orders [681] Prescriptions as of 05/12/2024 - levothyroxine (SYNTHROID) 100 mcg tablet Take 1 tablet by mouth once daily. - prochlorperazine (COMPAZINE) 10 mg tablet Take 1 tablet by mouth every 6 hours as needed for Nausea/Vomiting. - SUMAtriptan (IMITREX) 50 mg tablet Take 1-2 tablets by mouth as directed. At onset of migraine; may repeat in 2 HR if not resolved. - phenazopyridine (PYRIDIUM) 200 mg tablet Take 1 tablet by mouth three times daily as needed. - FLUoxetine (PROZAC) 20 mg capsule Take 20 mg by mouth once daily. - estradiol (ESTRACE) 0.01 % (0.1 mg/gram) vaginal cream Apply a pea sized amount to the urethra 3 times a week - Levothyroxine 50 mcg cap Take 75 mcg by mouth. - SUMATRIPTAN SUCCINATE (IMITREX ORAL) Take by mouth. Problem List As Of Date: 05/11/2024 (None) Encounter Status:Closed by LUMA FRENCH on 05/12/24 [facility] CNOVon 03-09-2024 CNOV Office Visit (ORMDNA ) KRISTINA ENCINAS ([id number]) 1945 F Date Time Provider Department 03/09/24 9:00 AM EDGAR DOAN During your visit today, we recorded the following information about you: Edgar Doan MD 2024 6:20 AM Signed Edgar Doan MD Department of Orthopaedics Orthopaedics [address] [address] Dept: [phone] March 09, 2024 CHIEF COMPLAINT: New and Pain of the Left Shoulder HPI Patient states she is having left shoulder pain for a couple of years but has gotten worse. She is having difficulty raising her arm and reaching behind her back. She plays tennis and feels a pulling in her upper arm when she goes to throw the ball to hit it. No specific injury. Taking no med's for the pain. X-rays done today. ASSESSMENT: M25.512, G89.29 Chronic left shoulder pain (primary encounter diagnosis) M25.819 Shoulder impingement PLAN: We had a lengthy discussion about likely some rotator cuff tendinitis and impingement. She would like to try cortisone injection today. She is going to be leaving town for a bit and she will consider physical therapy when she gets back. She dislikes the MRI machine, so any further imaging we may consider an ultrasound of the rotator cuff. FOLLOW UP INSTRUCTIONS: As above Ms. Kristina Encinas was advised as to contrast therapies and/or to take analgesics/anti-infla mmatories as needed and all contraindications were reviewed. OBJECTIVE: Ms. Kristina Encinas is a pleasant 78 year old in no apparent distress. Gen:There were no vitals taken for this visit. nl development, non obese, no deformities ENT: Normocephalic, normal hearing, moist mucosa CV: Pulses:Radial= 2+ and symmetric, capillary refill < 2 secs, no peripheral edema/varicosities Skin: no rash, bruising or lesions. Good turgor. Psych: cooperative and appropriate, alert and oriented x 3, good mood and affect. Musculoskeletal: Supple range of motion of the cervical spine without pain. Spurling signs are negative. No atrophy of the deltoid and shoulder musculature. Left shoulder is nontender to palpation over the SC joint, clavicle and AC joint. She has tenderness to palpation over the posterior shoulder along the medial border of the scapula and along some of the paraspinal musculature with tightness, positive tenderness palpation over the anterior lateral corner of the shoulder and greater tuberosity. Nonpainful at the bicipital groove and coracoid. Active range of motion is 160 degrees of forward elevation, 60 degrees external rotation, and internal rotation to the lumbar spine. Passive range of motion is symmetrical, limited by some pain, respectively. No laxity with anterior and posterior stress. Positive Neer and Hinkle impingement signs. 4+/5 strength with supraspinatus, infraspinatus and subscapularis. Sensation is intact in the axillary, radial, median and ulnar nerve distribution Large Joint Arthro/Inj: L subacromial bursa Informed Consent Consent Obtained: Verbal Bigelow Protocol A moment to CARE was completed. SIGN IN Sign in communication not applicable due to emergent procedure. Personnel directly involved with the procedure wore the appropriate PPE. Special Equipment: N/A Patient/Surrogate Stated/Verified: Patient name, Date of , Relevant allergies and Intended procedure TIME OUT Relevant labs, photos, and/or imaging studies have been reviewed. Intended patient and procedure match the source document(s). Consent documented and matches the intended procedure. Correct side/site marked and visible. Medications required for procedure verified. No fire risk assessment and interventions applicable. No implant(s) inserted.03/09/2024 9:41 AM The procedure site was prepped in the usual sterile fashion. Site: L subacromial bursa Medications: 6 mg betamethasone acetate-betamethasone sodium phosphate 6 mg/mL Anesthetics: 5 mL lidocaine (PF) 10 mg/mL (1 %) Outcome: Tolerated well, no immediate complications Post-injection instructions were reviewed with the patient and the patient voiced understanding of these instructions. SIGN OUT No specimen collected. No instruments, equipment or retained foreign bodies applicable. Post-procedure follow-up management communicated and Plan of Care Visit completed when applicable IMAGING: Impression IMPRESSION: Negative Wheel Blocker: SKYLAR Transcribe Date/Time: Mar 09 2024 2:18P Dictated by : SERENITY VILLATORO MD This examination was interpreted and the report reviewed and electronically signed by: SERENITY VILLATORO MD on Mar 09 2024 2:18PM EST Results-Findings * * *Final Report* * * DATE OF EXAM: Mar 09 2024 9:02AM SHAHANA 5252 - XR SHLDR >/=3V AP/RODGER AP/OTHR LT / PROCEDURE REASON: M25.512-Left shoulder pain, unspecified chronicity (more content not included)... Normal [facility] Large Joint Arthro/Inj: L lara bacromial bursaon 03-09-2024 Edgar Doan MD 2024 6:20 AM Large Joint Arthro/Inj: L subacromial bursa Informed Consent Consent Obtained: Verbal Bigelow Protocol A moment to CARE was completed. SIGN IN Sign in communication not applicable due to emergent procedure. Personnel directly involved with the procedure wore the appropriate PPE. Special Equipment: N/A Patient/Surrogate Stated/Verified: Patient name, Date of , Relevant allergies and Intended procedure TIME OUT Relevant labs, photos, and/or imaging studies have been reviewed. Intended patient and procedure match the source document(s). Consent documented and matches the intended procedure. Correct side/site marked and visible. Medications required for procedure verified. No fire risk assessment and interventions applicable. No implant(s) inserted.03/09/2024 9:41 AM The procedure site was prepped in the usual sterile fashion. Site: L subacromial bursa Medications: 6 mg betamethasone acetate-betamethasone sodium phosphate 6 mg/mL Anesthetics: 5 mL lidocaine (PF) 10 mg/mL (1 %) Outcome: Tolerated well, no immediate complications Post-injection instructions were reviewed with the patient and the patient voiced understanding of these instructions. SIGN OUT No specimen collected. No instruments, equipment or retained foreign bodies applicable. Post-procedure follow-up management communicated and Plan of Care Visit completed when applicable [facility] XR SHLDR >/=3V AP/RODGER AP/OTH R LTon 03-09-2024 XR SHLDR >/=3V AP/RODGER AP/OTHR LT * * *Final Report* * * DATE OF EXAM: Mar 09 2024 9:02AM SHAHANA 5252 - XR SHLDR >/=3V AP/RODGER AP/OTHR LT / PROCEDURE REASON: M25.512-Left shoulder pain, unspecified chronicity * * * * Physician Interpretation * * * * PROCEDURE: Left shoulder INDICATION: Left shoulder pain, unspecified chronicity .left shoulder pain TECHNIQUE: XR SHLDR >/=3V AP/RODGER AP/OTHR LT COMPARISON: None FINDINGS: No fractures or dislocations are seen. The glenohumeral and acromioclavicular joints are within normal limits. Subacromial space is maintained. No significant degenerative change is seen. No soft tissue calcifications are seen. Upper ribs are intact. IMPRESSION: Negative Wheel Blocker: PSCB Transcribe Date/Time: Mar 09 2024 2:18P Dictated by : SERENITY VILLATORO MD This examination was interpreted and the report reviewed and electronically signed by: SERENITY VILLATORO MD on Mar 09 2024 2:18PM EST [id number] Normal [facility] XR Shoulder - left 3 Viewson 03-09-2024 IMPRESSION: Negative Wheel Blocker: PSCB Transcribe Date/Time: Mar 09 2024 2:18P Dictated by : SERENITY VILLATORO MD This examination was interpreted and the report reviewed and electronically signed by: SERENITY VILLATORO MD on Mar 09 2024 2:18PM EST [facility] * * *Final Report* * * DATE OF EXAM: Mar 09 2024 9:02AM MDO 5252 - XR SHLDR >/=3V AP/RODGER AP/OTHR LT / PROCEDURE REASON: M25.512-Left shoulder pain, unspecified chronicity * * * * Physician Interpretation * * * * PROCEDURE: Left shoulder INDICATION: Left shoulder pain, unspecified chronicity .left shoulder pain TECHNIQUE: XR SHLDR >/=3V AP/RODGER AP/OTHR LT COMPARISON: None FINDINGS: No fractures or dislocations are seen. The glenohumeral and acromioclavicular joints are within normal limits. Subacromial space is maintained. No significant degenerative change is seen. No soft tissue calcifications are seen. Upper ribs are intact. [facility] Provider, Adelaida Gautam - 03/09/2024 * * *Final Report* * * DATE OF EXAM: Mar 09 2024 9:02AM MDO 5252 - XR SHLDR >/=3V AP/RODGER AP/OTHR LT / PROCEDURE REASON: M25.512-Left shoulder pain, unspecified chronicity * * * * Physician Interpretation * * * * PROCEDURE: Left shoulder INDICATION: Left shoulder pain, unspecified chronicity .left shoulder pain TECHNIQUE: XR SHLDR >/=3V AP/RODGER AP/OTHR LT COMPARISON: None FINDINGS: No fractures or dislocations are seen. The glenohumeral and acromioclavicular joints are within normal limits. Subacromial space is maintained. No significant degenerative change is seen. No soft tissue calcifications are seen. Upper ribs are intact. IMPRESSION IMPRESSION: Negative Wheel Blocker: PSCAmrik Transcribe Date/Time: Mar 09 2024 2:18P Dictated by : SERENITY VILLATORO MD This examination was interpreted and the report reviewed and electronically signed by: SERENITY VILLATORO MD on Mar 09 2024 2:18PM EST [facility] Radiology Study observation (narrative) [facility] XR Shoulder - left 3 ViewsOr dered By: [facility] Provider on 03-09-2024 [facility] CBC W/Diff, Automatedon 11-2 Absolute Lymph 1.58 X10 3/uL Normal 0.83-4.[address] [facility] Comment on above: Performed By: #### L 506.0400, L501.9520, L100.0100, L500.4050, L500.4100 #### [facility] [address] [place], [address] Absolute Neut 2.1 X10 3/uL Normal 2.0-7.[address] [facility] Comment on above: Performed By: #### L 506.0400, L501.9520, L100.0100, L500.4050, L500.4100 #### [facility] [address] [place], [address] Basophils/100 WBC (Bld) 0.7 % Normal 0-[address] [facility] Comment on above: Performed By: #### L 506.0400, L501.9520, L100.0100, L500.4050, L500.4100 #### [facility] [address] [place], [address] Eosinophils/100 WBC (Bld) 1.4 % Normal 0-[address] [facility] Comment on above: Performed By: #### L 506.0400, L501.9520, L100.0100, L500.4050, L500.4100 #### [facility] [address] [place], [address] Erythrocyte distribution width (RBC) [Ratio] 12.5 % Normal 11.6-14.[address] [facility] Comment on above: Performed By: #### L 506.0400, L501.9520, L100.0100, L500.4050, L500.4100 #### [facility] [address] [place], [address] Hematocrit (Bld) [Volume fraction] 42.0 % Normal 37-[address] [facility] Comment on above: Performed By: #### L 506.0400, L501.9520, L100.0100, L500.4050, L500.4100 #### [facility] [address] [place], [address] Hemoglobin (Bld) [Mass/Vol] 13.9 g/dL Normal 12.0-15.[address] [facility] Comment on above: Performed By: #### L 506.0400, L501.9520, L100.0100, L500.4050, L500.4100 #### [facility] [address] [place], [address] IG% 0.200 Normal 0.0-0.[address] [facility] Comment on above: Result Comment: IG% - Immature Granulocytes (promyelocytes, myelocytes and metamyelocytes) > 1% indicates that a LEFT SHIFT is Present. Performed By: #### L 506.0400, L501.9520, L100.0100, L500.4050, L500.4100 #### [facility] [address] [place], [address] Lymphocytes/100 WBC (Bld) 37.8 % Normal 19-[address] [facility] Comment on above: Performed By: #### L 506.0400, L501.9520, L100.0100, L500.4050, L500.4100 #### [facility] [address] [place], [address] MCH (RBC) [Entitic mass] 31.2 pg Normal 27.0-32.[address] [facility] Comment on above: Performed By: #### L 506.0400, L501.9520, L100.0100, L500.4050, L500.4100 #### [facility] [facility] [address] [place], [address] MCHC (RBC) [Mass/Vol] 33.1 g/dL Normal 32-36 [facility] Comment on above: Performed By: #### L 506.0400, L501.9520, L100.0100, L500.4050, L500.4100 #### [facility] [address] [place], [address] MCV (RBC) [Entitic vol] 94.4 fL Normal 81-99 [facility] Comment on above: Performed By: #### L 506.0400, [id number], L100.0100, L500.4050, L500.4100 #### [facility] [address] [place], [address] Monocytes/100 WBC (Bld) 8.6 % Normal 0-10 [facility] Comment on above: Performed By: #### L 506.0400, [id number], L100.0100, L500.4050, L500.4100 #### [facility] [address] [place], [address] Neutrophils/100 WBC (Bld) 51.3 % Normal 47-[address] [facility] Comment on above: Performed By: #### L 506.0400, [id number], L100.0100, L500.4050, L500.4100 #### [facility] [address] [place], [address] Nucleated RBC (Bld) [#/Vol] 0 10*3/uL Normal 0-[address] [facility] Comment on above: Performed By: #### L 506.0400, [id number], L100.0100, L500.4050, L500.4100 #### [facility] [address] [place], [address] Platelet mean volume (Bld) [Entitic vol] 10.0 fL Normal 6.2-12.[address] [facility] Comment on above: Performed By: #### L 506.0400, [id number], L100.0100, L500.4050, L500.4100 #### [facility] [address] [place], [address] Platelets (Bld) [#/Vol] 308 10*3/uL Normal 150-[address] [facility] Comment on above: Performed By: #### L 506.0400, [id number], L100.0100, L500.4050, L500.4100 #### [facility] [address] [place], [address] RBC (Bld) [#/Vol] 4.45 10*6/uL Normal 4.2-5.4 [facility] Comment on above: Performed By: #### L 506.0400, [id number], L100.0100, L500.4050, L500.4100 #### [facility] [address] [place], [address] RDW SD 43.2 fl Normal 35.1-43.[address] [facility] Comment on above: Performed By: #### L 506.0400, [id number], L100.0100, L500.4050, L500.4100 #### [facility] [address] [place], [address] WBC (Bld) [#/Vol] 4.2 10*3/uL Low 4.4-11.0 [facility] Comment on above: Performed By: #### L 506.0400, [id number], L100.0100, L500.4050, L500.4100 #### [facility] [address] [place], [address] Comprehensive Metabolic Prof ilon 01-08-2024 Albumin [Mass/Vol] 3.8 g/dL Normal 3.2-5.0 [facility] Comment on above: Performed By: #### L 506.0400, [id number], L100.0100, L500.4050, L500.4100 #### [facility] [address] [place], [address] Albumin/Globulin [Mass ratio] 1.2 {ratio} Normal 0.9-2.[address] [facility] Comment on above: Performed By: #### L 506.0400, [id number], L100.0100, L500.4050, L500.4100 #### [facility] [address] [place], [address] ALK P 58 U/L Normal 45-[address] [facility] Comment on above: Performed By: #### L 506.0400, [id number], L100.0100, L500.4050, L500.4100 #### [facility] [address] [place], [address] ALT [Catalytic activity/Vol] 19 U/L Normal 13-[address] [facility] Comment on above: Performed By: #### L 506.0400, [id number], L100.0100, L500.4050, L500.4100 #### [facility] [address] [place], [address] AST [Catalytic activity/Vol] 14 U/L Low 15-[address] [facility] Comment on above: Performed By: #### L 506.0400, [id number], L100.0100, L500.4050, L500.4100 #### [facility] [address] [place], [address] Bilirubin [Mass/Vol] 0.40 mg/dL Normal 0.20-1.00 [facility] Comment on above: Result Comment: For patients on eltrombopag therapy, use of Dimension [place] TBIL is not recommended. Performed By: #### L 506.0400, [id number], L100.0100, L500.4050, L500.4100 #### [facility] [address] [place], [address] BUN/CRE 20.1 RATIO High 10-[address] [facility] Comment on above: Performed By: #### L 506.0400, [id number], L100.0100, L500.4050, L500.4100 #### [facility] [address] [place], [address] CA,Total 9.2 mg/dL Normal 8.5-10.[address] [facility] Comment on above: Performed By: #### L 506.0400, [id number], L100.0100, L500.4050, L500.4100 #### [facility] [address] [place], [address] Chloride [Moles/Vol] 109 mmol/L High 98-107 [facility] Comment on above: Performed By: #### L 506.0400, [id number], L100.0100, L500.4050, L500.4100 #### [facility] [address] [place], [address] CO2 [Moles/Vol] 27.0 mmol/L Normal 21.0-32.[address] [facility] Comment on above: Performed By: #### L 506.0400, [id number], L100.0100, L500.4050, L500.4100 #### [facility] [address] [place], [address] Creatinine [Mass/Vol] 0.80 mg/dL Normal 0.55-1.02 [facility] Comment on above: Result Comment: The validity of the calculated GFR GFRAA in patients over 70 years has not been determined. Clinical correlation is essential. Performed By: #### L 506.0400, L501.9520, L100.0100, L500.4050, L500.4100 #### [facility] [address] [place], [address] EST GFR - AA 90 mL/min Normal >[address] [facility] Comment on above: Result Comment: Afri can Welsh GFR Calc Performed By: #### L 506.0400, [id number], L100.0100, L500.4050, L500.4100 #### [facility] [address] [place], [address] GAP 5 Normal 5-[address] [facility] Comment on above: Performed By: #### L 506.0400, [id number], L100.0100, L500.4050, L500.4100 #### [facility] [address] [place], [address] GFR/1.73 sq M.predicted among non-blacks MDRD (S/P/Bld) [Vol rate/Area] 74 mL/min/{1.73_m2} Normal >[address] [facility] Comment on above: Result Comment: Non- GFR Calc Performed By: #### L 506.0400, L501.9520, L100.0100, L500.4050, L500.4100 #### [facility] [address] [place], [address] Globulin (S) [Mass/Vol] 3.3 g/dL Normal 2.2-4.2 [facility] Comment on above: Performed By: #### L 506.0400, [id number], L100.0100, L500.4050, L500.4100 #### [facility] [address] [place], [address] Glucose [Mass/Vol] 91 mg/dL Normal 74-106 [facility] Comment on above: Performed By: #### L 506.0400, [id number], L100.0100, L500.4050, L500.4100 #### [facility] [address] [place], [address] Potassium [Moles/Vol] 3.9 mmol/L Normal 3.5-5.1 [facility] Comment on above: Performed By: #### L 506.0400, [id number], L100.0100, L500.4050, L500.4100 #### [facility] [address] [place], [address] Sodium [Moles/Vol] 140 mmol/L Normal 136-145 [facility] Comment on above: Performed By: #### L 506.0400, [id number], L100.0100, L500.4050, L500.4100 #### [facility] [address] [place], [address] T PROT 7.1 g/dL Normal 6.4-8.[address] [facility] Comment on above: Performed By: #### L 506.0400, [id number], L100.0100, L500.4050, L500.4100 #### [facility] [address] [place], [address] Urea nitrogen [Mass/Vol] 16 mg/dL Normal 7-[address] [facility] Comment on above: Performed By: #### L 506.0400, [id number], L100.0100, L500.4050, L500.4100 #### [facility] [address] [place], [address] Lipid Profileon 01-08-2024 Cholesterol [Mass/Vol] 273 mg/dL High 200 [facility] Comment on above: Result Comment: <200 mg/dL Desirable 200-240 mg/dL Borderline >240 mg/dL High Risk Performed By: #### L 506.0400, L501.9520, L100.0100, L500.4050, L500.4100 #### [facility] [address] [place], [address] Cholesterol in HDL [Mass/Vol] 55 mg/dL Normal [facility] Comment on above: Result Comment: The drugs N-Acetylcysteine and Metamizole may falsely depress this assay. Reference Range HDL <40 mg/dL Low HDL Cholesterol HDL >or= 60 mg/dL High HDL Cholesterol Performed By: #### L 506.0400, L501.9520, L100.0100, L500.4050, L500.4100 #### [facility] [address] [place], [address] Cholesterol in LDL [Mass/Vol] 189 mg/dL High 0-[address] [facility] Comment on above: Performed By: #### L 506.0400, L501.9520, L100.0100, L500.4050, L500.4100 #### [facility] [address] [place], [address] Cholesterol in VLDL [Mass/Vol] 29 mg/dL Normal 5-[address] [facility] Comment on above: Performed By: #### L 506.0400, L501.9520, L100.0100, L500.4050, L500.4100 #### [facility] [address] [place], [place], [address] Triglyceride [Mass/Vol] 146 mg/dL Normal [facility] Comment on above: Result Comment: The drugs N-Acetylcysteine and Metamizole may falsely depress this assay. Serum Triglycerides Reference Interval Normal <150 mg/dL Borderline high 150 - 199 mg/dL High 200 - 499 mg/dL Very High > or = 500 mg/dL Performed By: #### L 506.0400, L501.9520, L100.0100, L500.4050, L500.4100 #### [facility] [address] [place], [place], [id number] T4 Free Directon 01-08-2024 T4 FREE DIRECT 1.29 ng/dL Normal 0.76-1.[address] [facility] Comment on above: Performed By: #### L 506.0400, L501.9520, L100.0100, L500.4050, L500.4100 #### [facility] [address] [place], [place], [address] Thyroid Stim Hormone (TSH)on 01-08-2024 TSH 0.163 uIU/mL Low 0.358-3.[address] [facility] Comment on above: Performed By: #### L 506.0400, L501.9520, L100.0100, L500.4050, L500.4100 #### [facility] [address] [place], [place], [id number] Absolute lymphocyte countOrd ered By: Gail Ko on 03-14-2023 Lymphocytes Auto (Unsp spec) [#/Vol] 1.71 10*3/uL 0.83-4.[address] [facility] Automated lymphocyte count a s percentage of total leukocytesOrdered By: Gail Ko on 03-14-2023 Lymphocytes/100 WBC Auto (Unsp spec) 34.5 % 19-[address] [facility] Basophil percentageOrdered B y: Gail Ko on 03-14-2023 Basophils/100 WBC (Bld) 0.6 % 0-[address] [facility] Eosinophils/100 WBC (Bld) 0.6 % 0-[address] [facility] Hemoglobin (Bld) [Mass/Vol] 13.9 g/dL 12.0-15.[address] [facility] Monocytes/100 WBC (Bld) 8.5 % 0-10 [facility] Neutrophils (Bld) [#/Vol] 2.8 10*3/uL 2.0-7.[address] [facility] Neutrophils/100 WBC (Bld) 55.6 % 47-[address] [facility] WBC (Bld) [#/Vol] 5.0 10*3/uL 4.4-11.0 [facility] Determination of erythrocyte mean corpuscular volume (MCV)Ordered By: Gail Ko on 03-14-2023 MCV (RBC) [Entitic vol] 95.6 fL 81-99 [facility] Erythrocyte distribution wid th ratioOrdered By: Gail Ko on 03-14-2023 Erythrocyte distribution width (RBC) [Ratio] 12.8 % 11.6-14.[address] [facility] Erythrocyte distribution wid th standard deviationOrdered By: Gail Ko on 03-14-2023 Erythrocyte distribution width (RBC) [Entitic vol] 44.9 fL 35.1-43.[address] [facility] Hematocrit Auto (Bld) [Volum e fraction]Ordered By: Gail Ko on 03-14-2023 Hematocrit (Bld) [Volume fraction] 43.0 % 37-[address] [facility] Immature granulocytes/100 WB C Auto (Bld)Ordered By: Gail Ko on 03-14-2023 Immature granulocytes/100 WBC (Bld) 0.200 % 0.0-0.[address] [facility] Comment on above: IG% - Immature Granu locytes (promyelocytes, myelocytes and metamyelocytes) > 1% indicates that a LEFT SHIFT is Present. Laboratory - Hematology and Cell countsOrdered By: Gail Ko on 03-14-2023 MCH (RBC) [Entitic mass] 30.9 pg 27.0-32.[address] [facility] MCHC (RBC) [Mass/Vol] 32.3 g/dL 32-36 [facility] Nucleated RBC/100 WBC (Bld) [Ratio] 0 % 0-[address] [facility] Platelets (Bld) [#/Vol] 246 10*3/uL 150-[address] [facility] Platelet mean volume Stevie-Ec ker (Bld) [Entitic vol]Ordered By: Gail Ko on 03-14-2023 Platelet mean volume (Bld) [Entitic vol] 10.8 fL 6.2-12.[address] [facility] RBC Auto (Bld) [#/Vol]Ordere d By: Gail Ko on 03-14-2023 RBC (Bld) [#/Vol] 4.50 10*6/uL 4.2-5.4 [facility] Serum or plasma thyroid stim ulating hormone (TSH) measurement (units/volume)Ordered By: Gail Ko on 03-14-2023 TSH Qn 0.21 uIU/mL 0.358-3.[address] [facility] Thin prep Papanicolaou smear with manual screeningOrdered By: Gail Ko on 03-14-2023 Thin prep Papanicolaou smear with manual screening 1.32 ng/dL 0.76-1.[address] [facility] - Chemistry and C hemistry - challengeOrdered By: Gail Ko on 01-03-2023 Free T4 [Mass/Vol] 1.31 ng/dL 0.76-1.46 [facility] No Panel InformationOrdered By: Gail Ko on 01-03-2023 Thyroid Stimulating Hormone (TSH) 0.08 uIU/mL 0.358-3.[address] [facility] Absolute lymphocyte counton 12-20-2021 Lymphocytes Auto (Unsp spec) [#/Vol] 1.81 10*3/uL 0.83-4.[address] [facility] Work Phone: Basophil percentageon 2021 Basophils/100 WBC (Bld) 0.7 % 0-1 [facility] Work Phone: Bilirubin [Mass/Vol] 0.30 mg/dL 0.20-1.00 [facility] Work Phone: Comment on above: For patients on eltr ombopag therapy, use of Dimension [place] TBIL is not recommended. Chloride [Moles/Vol] 107 mmol/L 98-[address] [facility] [address] [facility] Work Phone: [phone] Cholesterol [Mass/Vol] 260 mg/dL <200 [facility] Work Phone: Comment on above: <200 mg/dL Desirable 200-240 mg/dL Borderline >240 mg/dL High Risk Eosinophils/100 WBC (Bld) 1.2 % 0-[address] [facility] Work Phone: Glucose [Mass/Vol] 99 mg/dL 74-106 [facility] Work Phone: [phone] Neutrophils (Bld) [#/Vol] 2.0 10*3/uL 2.0-7.[address] [facility] Work Phone: [phone] Neutrophils/100 WBC (Bld) 46.9 % 47-[address] [facility] Work Phone: [phone] Potassium [Moles/Vol] 4.3 mmol/L 3.5-5.1 [facility] Work Phone: [phone] Protein [Mass/Vol] 7.2 g/dL 6.4-8.2 [facility] Work Phone: [phone] Sodium [Moles/Vol] 140 mmol/L 136-145 [facility] Work Phone: [phone] Triglyceride [Mass/Vol] 189 mg/dL <[address] [facility] Work Phone: [phone] Comment on above: The drugs N-Acetylcy steine and Metamizole may falsely depress this assay.Serum Triglycerides Reference Interval Normal <150 mg/dL Borderline high 150 - 199 mg/dL High 200 - 499 mg/dL Very High > or = 500 mg/dL WBC (Bld) [#/Vol] 4.3 10*3/uL 4.4-11.0 [facility] Work Phone: [phone] Blood erythrocytes count (nu mber/volume)on 12-20-2021 RBC (Bld) [#/Vol] 4.73 10*6/uL 4.2-5.4 [facility] Work [facility]: Blood hemoglobin measurement (mass/volume)on 12-20-2021 Hemoglobin (Bld) [Mass/Vol] 15.1 g/dL 12.0-15.[address] [facility] Work Phone: Blood lymphocytes/100 leukoc yteson 12-20-2021 Lymphocytes/100 WBC (Bld) 41.8 % 19-[address] [facility] Work Phone: Blood monocytes/100 leukocyt eson 12-20-2021 Monocytes/100 WBC (Bld) 9.2 % 0-[address] [facility] Work Phone: Blood platelet mean volumeon 12-20-2021 Platelet mean volume (Bld) [Entitic vol] 9.9 fL 6.2-12.[address] [facility] Work Phone: Determination of erythrocyte mean corpuscular volume (MCV)on 12-20-2021 MCV (RBC) [Entitic vol] 94.3 fL 81-[address] [facility] Work Phone: Hematocrit Auto (Bld) [Volum e fraction]on 12-20-2021 Hematocrit (Bld) [Volume fraction] 44.6 % 37-[address] [facility] Work Phone: Laboratory - Chemistry and C hemistry - challengeon 12-20-2021 ALP [Catalytic activity/Vol] 62 U/L 45-[address] [facility] Work Phone: ALT [Catalytic activity/Vol] 21 U/L 13-[address] [facility] Work Phone: CO2 [Moles/Vol] 29.0 mmol/L 21.0-32.[address] [facility] Work Phone: Free T4 [Mass/Vol] 1.20 ng/dL 0.76-1.46 [facility] Work Phone: Globulin (S) [Mass/Vol] 3.3 g/dL 2.2-4.[address] [facility] Work Phone: Urea nitrogen/Creatinine [Mass ratio] 16.9 mg/mg 10-[address] [facility] Work Phone: Laboratory - Hematology and Cell countson 12-20-2021 Erythrocyte distribution width (RBC) [Entitic vol] 42.8 fL 35.1-43.[address] [facility] Work Phone: Erythrocyte distribution width (RBC) [Ratio] 12.3 % 11.6-14.[address] [facility] Work Phone: Immature granulocytes/100 WBC (Bld) 0.200 % 0.0-0.[address] [facility] Work Phone: Comment on above: IG% - Immature Granu locytes (promyelocytes, myelocytes and metamyelocytes) > 1% indicates that a LEFT SHIFT is Present. MCH (RBC) [Entitic mass] 31.9 pg 27.0-32.[address] [facility] Work Phone: Nucleated RBC/100 WBC (Bld) [Ratio] 0 % 0-[address] [facility] Work Phone: MCHC Auto (RBC) [Mass/Vol]on 12-20-2021 MCHC (RBC) [Mass/Vol] 33.9 g/dL 32-36 [facility] Work Phone: No Panel Informationon 12-20 Estimated GFR (MDRD) Amer 74 mL/min >[address] [facility] Work Phone: Comment on above: GFR Calc Estimated GFR (MDRD) Non-Af Amer 61 mL/min >[address] [facility] Work Phone: Comment on above: Non- GFR Calc Thyroid Stimulating Hormone (TSH) 0.49 uIU/mL 0.358-3.[address] [facility] Work Phone: Platelets bldon 12-20-2021 Platelets (Bld) [#/Vol] 241 10*3/uL 150-[address] [facility] Work Phone: Serum or plasma albumin che urement (mass/volume)on 12-20-2021 Albumin [Mass/Vol] 3.9 g/dL 3.2-5.0 [facility] Work Phone: Serum or plasma albumin/glob ulin mass ratioon 12-20-2021 Albumin/Globulin [Mass ratio] 1.2 {ratio} 0.9-2.[address] [facility] Work Phone: Serum or plasma calcium che urement (mass/volume)on 12-20-2021 Calcium [Mass/Vol] 9.6 mg/dL 8.5-10.1 [facility] Work Phone: Serum or plasma cholesterol in HDL measurement (mass/volume)on 12-20-2021 Cholesterol in HDL [Mass/Vol] 48 mg/dL >[address] [facility] Work Phone: Comment on above: The drugs N-Acetylcy steine and Metamizole may falsely depress this assay. Reference Range HDL <40 mg/dL Low HDL Cholesterol HDL >or= 60 mg/dL High HDL Cholesterol Serum or plasma cholesterol in VLDL measurement (mass/volume)on 12-20-2021 Cholesterol in VLDL [Mass/Vol] 38 mg/dL 5-[address] [facility] Work Phone: Serum or plasma creatinine m easurement (mass/volume)on 12-20-2021 Creatinine [Mass/Vol] 0.94 mg/dL 0.55-1.02 [facility] Work Phone: Comment on above: The validity of the calculated GFR & GFRAA in patients over 70 years has not been determined. Clinical correlation is essential. Serum or plasma low density lipoprotein (LDL) cholesterol measurement (mass/volume)on 12-20-2021 Cholesterol in LDL [Mass/Vol] 174 mg/dL 0-[address] [facility] Work Phone: Serum or plasma urea nitroge n measurement (mass/volume)on 12-20-2021 Urea nitrogen [Mass/Vol] 16 mg/dL 7-[address] [facility] Work Phone: Thin prep Papanicolaou smear with manual screeningon 12-20-2021 Thin prep Papanicolaou smear with manual screening 14 U/L 15-[address] [facility] Work Phone: Thin prep Papanicolaou smear with manual screening 4 5-[address] [facility] Work Phone: Vital Signs Date Time Vital Sign Value Performing Clinician Faci lity 07-26-2024 15:01-0400 Body weight 70.6 kg Sandro Menendez MD Work Phone: [facility] 07-26-2024 15:01-0400 Heart rate 106 /min Sandro Menendez MD Work Phone: [facility] 07-26-2024 15:01-0400 SaO2% (BldA) [Mass fraction] 99 % Sandro Menendez MD Work Phone: [facility] 11-20-2021 08:30-0400 Body temperature 99 [degF] Dr. Gail Ko Work Phone: [facility] Work Phone: 11-20-2021 08:30-0400 Diastolic blood pressure 72 mm[Hg] Dr. Gail Ko Work Phone: [facility] Work Phone: 11-20-2021 08:30-0400 Heart rate 89 /min Dr. Gail Ko Work Phone: [facility] Work Phone: 11-20-2021 08:30-0400 Respiratory rate 18 /min Dr. Gail Ko Work Phone: [facility] Work Phone: 11-20-2021 08:30-0400 SaO2% (BldA) [Mass fraction] 97 % Dr. Gail Ko Work Phone: [facility] Work Phone: 11-20-2021 08:30-0400 Systolic blood pressure 126 mm[Hg] Dr. Gail Ko Work Phone: [facility] Work Phone: 11-20-2021 08:15-0400 Inhaled oxygen flow rate 4 L/min Dr. Gail Ko Work Phone: [facility] Work Phone: 11-20-2021 06:52-0400 Body height 162.[address] Gail Ko Work Phone: [facility] Work Phone: 11-20-2021 06:52-0400 Body mass index (BMI) [Ratio] 27.4 kg/m2 Dr. Gail Ko Work Phone: [facility] Work Phone: 11-20-2021 06:52-0400 Body weight 72.[address] Gail Ko Work Phone: [facility] Work Phone: 10-29-2021 16:21-0400 Body mass index (BMI) [Ratio] 28.1 kg/m2 Dr. Gail Ko Work Phone: [facility] Work Phone: 10-29-2021 16:21-0400 Body weight 74.[address] Gail Ko Work Phone: [facility] Work Phone: Encounters Encounter Date Encounter Type Care Provider Facility Start: 10-26-2024 End: 10-26-[address] Gail Ko MD Work Phone: -Physical Therapy Start: 10-26-2024 End: 10-26-2024 Discharged Recurring Dheeraj DIOR -Physical Therapy Work Phone: Start: 08-23-2024 End: 08-23-2024 Patient encounter procedure Edgar Doan MD Work Phone: Orthopaedics Comment on above: Chronic right should er pain (Primary Dx); Shoulder impingement; Impingement syndrome of right shoulder Start: 08-23-2024 End: 08-23-2024 ambulatory EDGAR DOAN Facility[facility] Start: 08-23-2024 End: 08-23-2024 Subsequent hospital visit by physician X[facility] Tevin Richardson Work Phone: Radiology Comment on above: Right shoulder pain, unspecified chronicity [M25.511] Start: 08-11-2024 End: 08-11-2024 Orders Only Edgar Doan MD Work Phone: Orthopaedics Comment on above: Right shoulder pain, unspecified chronicity (Primary Dx) Start: 07-28-2024 End: 07-28-2024 E-mail encounter from caregiver Sandro Menendez MD Work Phone: Pain Management Start: 07-28-2024 End: 07-28-2024 Telephone encounter Sandro Menendez MD Work Phone: Pain Management Comment on above: Results (Thoracic CT Scan) Start: 07-28-2024 End: 07-28-2024 ambulatory Sandro Menendez MD Work Phone: Pain Management Comment on above: Results and Recommen dations Start: 07-28-2024 End: 07-28-2024 Subsequent hospital visit by physician [facility] ([facility]) Work Phone: Cat Scan Comment on above: Chronic midline thor acic back pain [M54.6, G89.29] Start: 07-26-2024 End: 07-26-2024 Patient encounter procedure Sandro Menendez MD Work Phone: Pain Management Comment on above: Chronic midline thor acic back pain (Primary Dx); Compression fracture of T7 vertebra, initial encounter ([facility]); Muscle spasm Start: 07-26-2024 End: 07-26-2024 ambulatory SANDRO MENENDEZ Facility:[facility] Start: 06-22-2024 End: 06-22-2024 ambulatory Dheeraj Jc [place] Start: 06-11-2024 End: 06-11-[address] Gail Ko MD Work Phone: [facility] Work Phone: Start: 06-11-2024 End: 06-11-[address] Edgar Doan MD -Physical Therapy Work Phone: Start: 05-11-2024 End: 05-12-2024 Telephone encounter Edgar Doan MD Work Phone: Orthopaedics Comment on above: Orders Start: 03-09-2024 End: 03-09-2024 Patient encounter procedure Edgar Doan MD Work Phone: Orthopaedics Comment on above: Chronic left shoulde r pain (Primary Dx); Shoulder impingement Start: 03-09-2024 End: 03-09-2024 ambulatory EDGAR DOAN Facility:[facility] Start: 03-09-2024 End: 03-09-2024 Subsequent hospital visit by physician [facility] Work Phone: Radiology Comment on above: Left shoulder pain, unspecified chronicity [M25.512] Start: 03-03-2024 End: 03-03-2024 Orders Only Edgar Doan MD Work Phone: Orthopaedics Comment on above: Left shoulder pain, unspecified chronicity (Primary Dx) Start: 02-06-2024 Encounter for genera l adult medical examination without abnormal findings [place] [facility] Start: 01-08-2024 End: 01-08-2024 ambulatory [facility] Facility:[facility] Start: 03-14-2023 End: 03-14-[address] [facility] Work Phone: Start: 03-14-2023 End: 03-14-[address] [facility] Start: 01-30-2023 End: 01-30-[address] [facility] Work Phone: Start: 01-30-2023 End: 01-30-20[address] [facility] Work Phone: Start: 01-03-2023 End: 01-03-[address] [facility] Work Phone: Start: 01-03-2023 End: 01-03-[address] [facility]-Laboratory, [place] [facility] Start: 06-05-2022 End: 06-05-[address] [facility] Work Phone: Start: 06-05-2022 End: 06-05-[address] [facility]-Ultrasound, [facility] Start: 01-22-2022 End: 01-22-[address] Gail Ko Work Phone: [facility] Work Phone: Start: 01-22-2022 End: 01-22-[address] Gail Ko Work Phone: [facility] Start: 12-20-2021 End: 12-20-[address] Gail Ko Work Phone: [facility], [facility] Start: 11-20-2021 Non-patient / Non-visit Dr. Deny Ko Work Phone: [facility] Start: 11-20-2021 End: 11-20-2021 Admission to same day surgery center Dr. Gail Ko Work Phone: [facility]-Endoscopy Start: 11-20-2021 End: 11-20-[address] Gail Ko Work Phone: [facility] Work Phone: Start: 10-29-2021 Non-patient / Non-visit Dr. Deny Ko Work Phone: [facility] Procedures Date Procedure Procedure Detail Performing Clinician Start: 08-23-2024 Arthrocentesis aspir &/inj major jt/bursa w/o us Edgar Doan MD Work Phone: Start: 07-28-2024 Ct thoracic spine w/ o contrast material Sandro Menendez MD Work Phone: Start: 03-09-2024 Arthrocentesis aspir &/inj major jt/bursa w/o us Edgar Doan MD Work Phone: Start: 03-09-2024 Radex shoulder compl ete minimum 2 views Edgar Doan MD Work Phone: Start: 01-30-2023 Screening mammography Start: 06-05-2022 Ultrasonography of t hyroid and parathyroid Start: 01-22-2022 Screening mammography Ileana Ko Work Phone: Start: 11-20-[address] Gail Ko Work Phone: Plan of Treatment Date Care Activity Detail Author Start: 10-18-2024 Influenza vaccination Influenza Vacc ine (#1) [facility] Start: 08-23-2024 End: 08-23-2024 Patient encounter procedure 08/23/2024 10:00 AM EDT Office Visit Orthopaedics [address] [place], [place] [id number] Edgar Doan MD [address] [place], [place] [id number] Right shoulder pain Orthopaedics Comment on above: Right shoulder pain Start: 07-28-2024 End: 07-28-2024 Patient encounter procedure 07/28/2024 8:20 AM EDT Appointment [facility] [address] [address] [place], [place] [id number] CT Cat Scan Comment on above: CT Start: 04-20-2024 Covid-19 Vaccine ( season) Covid-19 Vaccine ( season) [facility] Start: 03-09-2024 End: 03-09-2024 Patient encounter procedure 03/09/2024 3:00 PM EST Office Visit Orthopaedics [address] [id number] Edgar Doan MD [address] [place], [place] [id number] Shoulder pain Orthopaedics Comment on above: Shoulder pain Start: 02-18-2024 Advance Directive Discussion Advance Directive Discussion [facility] Start: 10-19-2023 Covid-19 Vaccine ( season) Covid-19 Vaccine ( season) [facility] Start: 10-19-2023 Influenza vaccination Influenza Vacc ine (#1) [facility] Start: 08-03-2023 Urine microalbumin profile DTaP,Tdap,Td Vaccine (2 - Td or Tdap) [facility] Start: 2022 RSV Vaccine (1 - 1-d ose 75+ series) RSV Vaccine (1 - 1-dose 75+ series) [facility] Start: 11-20-2021 Colonoscopy flx dx w/collj spec when pfrmd DIAGNOSTIC COLONOSCOPY [facility] Work Phone: Start: 11-20-2021 [facility] Start: 2012 Screening for osteoporosis Bone Density Screening [facility] Start: 02-18-2012 Medicare Annual Wellness Visit Medicare Annual Wellness Visit [facility] Start: 1997 Shingrix Vaccine (1 of 2) Shingrix Vaccine (1 of 2) [facility] Start: 1992 Diabetes Screening Diabetes Screenin g [facility] Start: 1965 Anxiety Screening Anxiety Screening [facility] Start: 1965 Depression Screening Depression Scre ening [facility] Start: 1965 Hepatitis C screening Hepatitis C Sc senait [facility] End: 08-25-2025 CT Thoracic spine WO contrast CT THORACIC SPINE WO IVCON Radiology Routine Chronic midline thoracic back pain 1 Occurrences starting 07/26/2024 until 08/25/2025 [facility] Work Phone: Comment on above: 1 Occurrences starti ng 07/26/2024 until 08/25/2025 Patient referral [facility] Work Phone: End: 04-02-2025 XR Shoulder - left 3 Views XR SHOULDER GENERAL 3V OR MORE AP/TRUE AP/OTHER LEFT Radiology Routine Left shoulder pain, unspecified chronicity 1 Occurrences starting 03/03/2024 until 04/02/2025 [facility] Work Phone: Comment on above: 1 Occurrences starti ng 03/03/2024 until 04/02/2025 End: 09-10-2025 XR Shoulder - right 3 Views XR SHOULDER GENERAL 3V OR MORE AP/TRUE AP/OTHER RIGHT Radiology Routine Right shoulder pain, unspecified chronicity 1 Occurrences starting 08/11/2024 until 09/10/2025 [facility] Work Phone: Comment on above: 1 Occurrences starti ng 08/11/2024 until 09/10/2025 XR Shoulder - right 3 Views XR SHOULDER GENERAL 3V OR MORE AP/TRUE AP/OTHER RIGHT Radiology Routine Right shoulder pain, unspecified chronicity 08/23/2024 9:49 AM EDT [facility] Work Phone: Immunizations Immunization Date Immunization Notes Care Provider Fa cili 12-11-2023 influenza virus vacc ine, unspecified formulation [employer] Work Phone: [facility] Payers Date Payer Category Payer Self-pay [id number] 2019 Private Health Insurance MMO MED ICARE SUPPLEMENT [id number] 2019 Unknown MMO MMO MEDICARE SUPPLEMENT [id number] 2019-Present [phone] [address] [place] [address] Indemnity [id number] 2019 Unknown [id number] 2012 Medicare [id number] 2012 Unknown MAUREEN [id number] 2012 Medicare [id number] Unknown [id number] Unknown [id number] Unknown [id number] Unknown [id number] Unknown [id number] Social History Date Type Detail Facility Start: 11-16-2021 End: 11-16-2021 Tobacco smoking status COIS Unknown if ever smoked [facility] Start: 1945 Sex Assigned At Female [facility] Start: 07-07-2012 End: 11-16-2021 Tobacco smoking status NHIS Never smoked tobacco [facility] Start: 07-07-2012 Tobacco use and exposure Smokeless tobacco non-user [facility] Start: 08-30-2019 End: 08-30-2024 Alcoholic beverage intake Current drinker of alcohol (finding) [facility] Start: 08-30-2019 End: 03-09-2024 History of Social function [facility] Start: 08-30-2019 End: 03-09-2024 Tobacco use panel [facility] Adult Depression Screening Assessment 0 [facility] Start: 04-13-2014 Alcohol Comment occasional [facility] Start: 1945 Sex assigned at Not on file [facility] Start: 06-14-2024 Sex Female (finding) [facility] NEGATED: Highlighted row [facility] Work Phone: Goals Date Patient Goal Desired Activity /State Functional Status Date Assessment Result Facility 04-13-2014 Are you deaf, or do you have serious difficulty hearing No 04/13/2014 3:01 PM Mary Ray LPN No [facility] 04-13-2014 Are you blind, or do you have serious difficulty seeing, even when wearing glasses No 04/13/2014 3:01 PM Mary Ray LPN No [facility] 04-13-2014 Do you have serious difficulty walking or climbing stairs No 04/13/2014 3:01 PM Mary Ray LPN No [facility] 04-13-2014 Do you have difficul ty dressing or bathing No 04/13/2014 3:01 PM Mary Ray LPN No [facility] 04-13-2014 Because of a physica l, mental, or emotional condition, do you have difficulty doing errands alone such as visiting a physician's office or shopping No 04/13/2014 3:01 PM Mary Ray LPN No [facility] Mental Status Date Assessment Result Facility 11-20-2021 Cognitive function Level Of Cons ciousness Sedated [facility] Work Phone: 11-20-2021 Cognitive function Patient Oricarley herman Person;Place;Time [facility] Work Phone: 04-13-2014 Because of a physica l, mental, or emotional condition, do you have serious difficulty concentrating, remembering, or making decisions No 04/13/2014 3:01 PM Mary Ray LPN No [facility] Clinical Notes 03-09-2024 to 10-26-2024 Note Date & Type Note Facility 10-26-2024 Discharge summary Note Date/Time October 26, 2024 10:01am [facility] [address] [place] [address] [address] [place] [address] / REHABILITATION SERVICES DISCHARGE SUMMARY MR#: [id number] Acct: [id number] Name: KRISTINA ENCINAS Rep #: [id number] : 1945 79 From: Katy Workman PT, Cert. MDT Referring Dr.: OVI Garcia Status: REG RCR Insurance: MEDICARE PART A B [facility] Discharge Summary D/C summary: It has been my pleasure to treat KRISTINA ENCINAS referred by OVI Garcia, with the diagnosis of NECK PAIN AND R SHLD PAIN for a total of 28 visit(s). Discharge Date: 10/26/24 Please see the following information for a summary of their discharge status. Subjective Subjective: PATIENT REPORTS THAT IN THE MORNING SHE DOESN'T HAVE PAIN UNTIL ABOUT 1PM. 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 THERE HAVE ONLY BEEN 2 DAYS IN THE LAST COUPLE MONTHS THAT SHE HASN'T HAD PAIN ALL DAY. ONE DAY WAS AFTER A WORKOUT AND ONE DAY WAS AFTER A MASSAGE. STILL USING ICE AND EX NEEDED TO TRY TO HELP PAIN. THE PAIN IS IN THE R LATERAL SCAP REGION AROUND THE RIB AND AXILLA AREA ACCORDING TO WHERE PATIENT IS POINTING. PATIENT REPORTS SHE STILL HAS THE PAIN BUT SHE NOW HER ACTIVITY LEVEL IS MUCH BETTER. 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 I'M SEEING THATI AM NOT FOCUSED ON TRYING TO FIGURE OUT HOW I AM GOING TO STAY COMFORTABLE DURING MEETINGS. IN GENERAL PATIENT STATES SHE ISN'T DISTRACTED BY HER PAIN NOW AND ISN'T CONCERNED ABOUT HURTING HERSELF. SHE REPORT SHE STILL WANTS TOGET TO WHERE SHE CAN PLAY TENNIS AGAIN. Pain R SCAP: Pain Intensity (Out of 10): 2 NECK PAIN: Pain Intensity (Out of 10): 0 R ribs: Pain Intensity (Out of 10): 3 Overall Improvement % Improvement: 90 Objective Objective/Function: PATIENT WAS SEEN TODAY FOR RE-ASSESSMENT OF PROGRESS TOWARD THE SET PT GOALS AND THE NEED FOR FURTHER PHYSICAL THERAPY VS READINESS FOR DISCHARGE. ASSESSMENT OF CURRENT ACTIVITY LEVEL AND INSTRUCTION IN APPROPRIATE MODIFICATAIONS TO CONTINUE TO PROGRESS TOWARD GOALS. UPON EXAM TODAY R RIB AND SCAP PAIN IS EASILY PROVOKED TO 3/10 WITH L THORACIC ROTATION. TODAY, ACTIVE ELEVATION OF R UE, R THORACIC ROTATION, R SHLD ABD AND THORACIC EXTENSION DOES NOT PROVOKE INCREASED PAIN. HER PAIN IS MORE LOCALIZED COMPARED TO LAST RE-CHECK WHEN SHE RETURNED FROM VACATION. HER SYMPTOMS ARE PLATEAUING AND SHE IS INDEP WITH BOTH LAND AND WATER EX PROGRAMS. SHE HAS BEEN INSTRUCTED IN APPROPRIATE SELF MGMT OF HER CONDITION AND SELF PROGRESSION OF STRENGTHENING TO TRY TO RETURN TO HER ACTIVITY GOALS. PATIENT IS APPROPRIATE FOR AND AGREEABLE TO DISCHARGE FROM PT AT THIS POINT. INSTRUCTED PATIENT TO PHYSICIAN FOR RE-ASSESSMENT NEEDED. Goals Goal 1:: DECREASE C/O R SHLD PAIN BY AT LEAST 70% TO EASE ADL'S Goal Progress: Goal Met Goal 2:: IMPROVE PERSONAL CARE, LIFTING, READING, SLEEP, WORK, DRIVING AND RECREATIONAL FUNCTIONAL WITH AT LEAST 10 POINT IMPROVEMENT IN NECK OSWESTRY SCORE. Goal Progress: Progressing Goal 3:: INSTRUCT IN PROPHYLAXIS Goal Progress: Goal Met Plan Plan: D/C D/C Information d/c sentence: If there are questions or concerns regarding this patient's physical therapy, please feel free to call me at [phone]. Thank you for the referral of thispatient. Sincerely, Katy Workman PT, Cert MDT Balance/Gait/Functional tests Balance/Special Test Scores Oswestry Neck Score: 18 Improvement % Improvement: 90 <Electronically signed by Katy Workman PT, Cert. MDT> 10/26/24 1001 CC: OVI Garcia; Dr. Gail Ko MD ~ HANY Signed [facility] Work Phone: 1(411) 743-211209-09-[address] [facility] [address] [place] [address] [address] [place] [address] / REHABILITATION SERVICES DISCHARGE SUMMARY MR#: [id number] Acct: [id number] Name: KRISTINA ENCINAS Rep #: [id number] : 1945 79 From: Katy Workman PT, Cert. MDT Referring DrCarol: OVI Garcia Status: REG RCR Insurance: MEDICARE PART A B [facility] Discharge Summary D/C summary: It has been my pleasure to treat KRISTINA ENCINAS referred by OVI Garcia, with the diagnosis of NECK PAIN AND R SHLD PAIN for a total of 28 visit(s). Discharge Date: 10/26/24 Please see the following information for a summary of their discharge status. Subjective Subjective: PATIENT REPORTS THAT IN THE MORNING SHE DOESN'T HAVE PAIN UNTIL ABOUT 1PM. SHE IS DOINGPOOL WORKOUTS IN THE MORNINGS. THERE HAVE ONLY BEEN 2 DAYS IN THE LAST COUPLE MONTHS THAT SHE HASN'T HAD PAIN ALL DAY. ONE DAY WAS AFTER A WORKOUT AND ONE DAY WAS AFTER A MASSAGE. STILL USING ICE ANDEX NEEDED TO TRY TO HELP PAIN. THE PAIN IS IN THE R LATERAL SCAP REGION AROUND THE RIB AND AXILLA AREA ACCORDING TO WHERE PATIENT IS POINTING. PATIENT REPORTS SHE STILL HAS THE PAIN BUT SHE NOW HER ACTIVITY LEVEL IS MUCH BETTER. 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 I'M SEEING THATI AM NOT FOCUSED ON TRYING TO FIGURE OUT HOW I AM GOING TO STAY COMFORTA BLE DURING MEETINGS. IN GENERAL PATIENT STATES SHE ISN'T DISTRACTED BY HER PAIN NOW AND ISN'T CONCERNED ABOUT HURTING HERSELF. SHE REPORT SHE STILL WANTS TOGET TO WHERE SHE CAN PLAY TENNIS AGAIN. Pain R SCAP: Pain Intensity (Out of 10): 2 NECK PAIN: Pain Intensity (Out of 10): 0 R ribs: Pain Intensity (Out of 10): 3 Overall Improvement % Improvement: 90 Objective Objective/Function: PATIENT WAS SEEN TODAY FOR RE-ASSESSMENT OF PROGRESS TOWARD THE SET PT GOALS AND THE NEED FOR FURTHER PHYSICAL THERAPY VS READINESS FOR DISCHARGE. ASSESSMENT OF CURRENT ACTIVITY LEVEL AND INSTRUCTION IN APPROPRIATE MODIFICATAIONS TO CONTINUE TO PROGRESS TOWARD GOALS. UPON EXAM TODAY R RIB AND SCAP PAIN IS EASILY PROVOKED TO 3/10 WITH L THORACIC ROTATION. TODAY, ACTIVE ELEVATION OF R UE, R THORACIC ROTATION, R SHLD ABD AND THORACIC EXTENSION DOES NOT PROVOKE INCREASED PAIN. HER PAIN IS MORE LOCALIZED COMPARED TO LAST RE-CHECK WHEN SHE RETURNED FROM VACATION. HERSYMPTOMS ARE PLATEAUING AND SHE IS INDEP WITH BOTH LAND AND WATER EX PROGRAMS. SHE HAS BEEN INSTRUCTED IN APPROPRIATE SELF MGMT OF HER CONDITION AND SELF PROGRESSION OF STRENGTHENING TO TRY TO RETURNTO HER ACTIVITY GOALS. PATIENT IS APPROPRIATE FOR AND AGREEABLE TO DISCHARGE FROM PT AT THIS POINT.INSTRUCTED PATIENT TO PHYSICIAN FOR RE-ASSESSMENT NEEDED. Goals Goal 1:: DECREASE C/O R SHLD PAIN BY AT LEAST 70% TO EASE ADL'S Goal Progress: Goal Met Goal 2:: IMPROVE PERSONAL CARE, LIFTING, READING, SLEEP, WORK, DRIVING AND RECREATIONAL FUNCTIONAL WITH AT LEAST 10 POINT IMPROVEMENT IN NECK OSWESTRY SCORE. Goal Progress: Progressing Goal 3:: INSTRUCT IN PROPHYLAXIS Goal Progress: Goal Met Plan Plan: D/C D/C Information d/c sentence: If there are questions or concerns regarding this patient's physical therapy, please feel free to call me at [phone]. Thank you for the referral of thispatient. Sincerely, Katy Workman, PT, Cert MDT Balance/Gait/Functional tests Balance/Special Test Scores Oswestry Neck Score: 18 Improvement % Improvement: 90 10/26/24 1001 CC: OVI Garcia; Dr. Gail Ko MD ~ HANY Signed [facility]07-07-2025 NoteHNO ID: [id number] Author: EDGAR DOAN MD Service: ? Author Type: Physician Type: Progress Notes Filed: 08/30/2024 09:15 Note Text: Large Joint Arthro/Inj: R subacromial bursa 08/23/2024 10:31 AM The procedure site was prepped in the usual sterile fashion. Site: R subacromial bursa Medications: 6 mg betamethasone acetate-betamethasone sodium phosphate 6 mg/mL Anesthetics: 5 mL lidocaine (PF) 10 mg/mL (1 %) Outcome: Tolerated well, no immediate complications Post-injection instructions were reviewed with the patient and the patient voiced understanding of these instructions. Informed Consent Consent Obtained: Verbal Bigelow Protocol A moment to CARE was completed. SIGN IN Sign in communication not applicable due to emergent procedure. Personnel directly involved with the procedure wore the appropriate PPE. Special Equipment: N/A Patient/Surrogate Stated/Verified: Patient name, Date of , Relevant allergies and Intended procedure TIME OUT Relevant labs, photos, and/or imaging studies have been reviewed. Consent documented and matches the intended procedure. Correct side/site marked and visible. Medications required for procedure verified. No fire risk assessment and interventions applicable. No implant(s) inserted. SIGN OUT No specimen collected. All instruments, equipment, possible retained foreign bodies accounted for. No post-procedure POC communication to the patient or surrogate applicable. No post-procedure POC communication to the patient's multidisciplinary team (including the bedside nurse for hospitalized patients) applicable. Edgar Doan MD Department of Orthopaedics Orthopaedics [address] [facility] [address] Dept: [phone] Dept August 23, 2024 CHIEF COMPLAINT: Pain and Established Patient of the Right Shoulder (Last seen 03/09/24 left shoulder pain with injection given) CLAUDIA Encinas is a 79-year-old female presenting with right shoulder pain. Kristina reports right shoulder pain located at the posterior lateral corner and rear deltoid muscle. She notes that she has been protecting her shoulder, which she believes may be contributing to the pain. She denies any recent trauma or injury to the shoulder. Kristina has a history of left shoulder pain that was successfully treated with an injection and physical therapy. Kristina has been gradually increasing her physical activity and is able to jog approximately 2 miles at a time without difficulty. She recently returned from a vacation in [facility], where she engaged in walking and riding activities without any issues. She enjoys jogging and tennis but has not participated in tennis recently. She denies any problems with activities such as walking, riding, or jogging. ASSESSMENT: M25.511, G89.29 Chronic right shoulder pain (primary encounter diagnosis) M25.819 Shoulder impingement M75.41 Impingement syndrome of right shoulder 1. Chronic right shoulder pain (M25.511) Shoulder impingement (M25.819) Impingement syndrome of right shoulder (M75.41) X-ray reveals minimal arthritis and a very small bone spur; joint space is well-preserved. Physical exam shows good range of motion, mild tenderness over the posterior lateral corner and rear deltoid, minor impingement signs, and full strength in rotator cuff testing. Pain location suggests muscular strain rather than major structural issues. - Administered corticosteroid injection to the right shoulder. - Advised patient to monitor symptoms and avoid activities that exacerbate pain. - Follow-up as needed if symptoms persist or worsen. Will continue to monitor patient for Chronic right shoulder pain (primary encounter diagnosis) Shoulder impingement Impingement syndrome of right shoulder, patient to schedule visit as per follow up discussed. OBJECTIVE: Ms. Kristina Encinas is a pleasant 79 year old in no apparent distress. Gen:There were no vitals taken for this visit. nl development, non obese, no deformities ENT: Normocephalic, normal hearing, moist mucosa CV: Pulses:Radial= 2+ and symmetric, capillary refill < 2 secs, no peripheral edema/varicosities Skin: no rash, bruising or lesions. Good turgor. Psych: cooperative and appropriate, alert and oriented x 3, good mood and affect. Musculoskeletal: - Musculoskeletal: - Right Shoulder: - No obvious swelling; mild tenderness over the posterolateral corner and rear deltoid. - ROM: Good. - Provocative tests: Minor impingement signs; full strength on rotator cuff testing. Imaging: Labs: Tests: Imaging: - Right Shoulder X-ray: Minimal arthritic changes, tiny bony outgrowth suggestive of a bone spur, preserved joint space. Supporting Subjective Information Below: Past Medical History: PAST MEDICAL HISTORY Diagnosis Date Hypothyroid Internal hemorrhoids without mention of complication Loose stools Migraine Past (more content not included)...[facility]07-07-2025 History of Present illness Narrative* Edgar Doan MD - 08/23/2024 10:12 AM EDT Associated Order(s): Large Joint Arthro/Inj: R subacromial bursa Post-Procedure Diagnose(s): Chronic right shoulder pain; Shoulder impingement Large Joint Arthro/Inj: R subacromial bursa 08/23/2024 10:31 AM The procedure site was prepped in the usual sterile fashion. Site: R subacromial bursa Medications: 6 mg betamethasone acetate-betamethasone sodium phosphate 6 mg/mL Anesthetics: 5 mL lidocaine (PF) 10 mg/mL (1 %) Outcome: Tolerated well, no immediate complications Post-injection instructions were reviewed with the patient and the patient voiced understanding of these instructions. Informed Consent Consent Obtained: Verbal Bigelow Protocol A moment to CARE was completed. SIGN IN Sign in communication not applicable due to emergent procedure. Personnel directly involved with the procedure wore the appropriate PPE. Special Equipment: N/A Patient/Surrogate Stated/Verified: Patient name, Date of , Relevant allergies and Intended procedure TIME OUT Relevant labs, photos, and/or imaging studies have been reviewed. Consent documented and matches the intended procedure. Correct side/site marked and visible. Medications required for procedure verified. No fire risk assessment and interventions applicable. No implant(s) inserted. SIGN OUT No specimen collected. All instruments, equipment, possible retained foreign bodies accounted for. No post-procedure POC communication to the patient or surrogate applicable. No post-procedure POC communication to the patient's multidisciplinary team (including the bedside nurse for hospitalized patients) applicable. Edgar Doan MD Department of Orthopaedics Orthopaedics [address] [facility] [address] Dept: [phone] Dept August 23, 2024 CHIEF COMPLAINT: Pain and Established Patient of the Right Shoulder (Last seen 03/09/24 left shoulder pain with injection given) CLAUDIA Encinas is a 79-year-old female presenting with right shoulder pain. Kristina reports right shoulder pain located at the posterior lateral corner and rear deltoid muscle. She notes that she has been protecting her shoulder, which she believes may be contributing to the pain. She denies any recent trauma or injury to the shoulder. Kristina has a history of left shoulder pain that was successfully treated with an injection and physical therapy. Kristina has been gradually increasing her physical activity and is able to jog approximately 2 miles at a time without difficulty. She recently returned from a vacation in [facility], where she engaged in walking and riding activities without any issues. She enjoys jogging and tennis but has not participated in tennis recently. She denies any problems with activities such as walking, riding, or jogging. ASSESSMENT: M25.511, G89.29 Chronic right shoulder pain (primary encounter diagnosis) M25.819 Shoulder impingement M75.41 Impingement syndrome of right shoulder 1. Chronic right shoulder pain (M25.511) Shoulder impingement (M25.819) Impingement syndrome of right shoulder (M75.41) X-ray reveals minimal arthritis and a very small bone spur; joint space is well- preserved. Physicalexam shows good range of motion, mild tenderness over the posterior lateral corner and rear deltoid, minor impingement signs, and full strength in rotator cuff testing. Pain location suggests muscular strain rather than major structural issues. - Administered corticosteroid injection to the right shoulder. - Advised patient to monitor symptoms and avoid activities that exacerbate pain. - Follow-up as needed if symptoms persist or worsen. Will continue to monitor patient for Chronic right shoulder pain (primary encounter diagnosis) Shoulder impingement Impingement syndrome of right shoulder, patient to schedule visit as per follow up discussed. OBJECTIVE: Ms. Kristina Encinas is a pleasant 79 year old in no apparent distress. Gen:There were no vitals taken for this visit. nl development, non obese, no deformities ENT: Normocephalic, normal hearing, moist mucosa CV: Pulses:Radial= 2+ and symmetric, capillary refill < 2 secs, no peripheral edema/varicosities Skin: no rash, bruising or lesions. Good turgor. Psych: cooperative and appropriate, alert and oriented x 3, good mood and affect. Musculoskeletal: - Musculoskeletal: - Right Shoulder: - No obvious swelling; mild tenderness over the posterolateral corner and rear deltoid. - ROM: Good. - Provocative tests: Minor impingement signs; full strength on rotator cuff testing. Imaging: Labs: Tests: Imaging: - Right Shoulder X-ray: Minimal arthritic changes, tiny bony outgrowth suggestive of a bone spur, preserved joint space. Supporting Subjective Information Below: Past Medical History: PAST MEDICAL HISTORY Diagnosis Date Hypothyroid Internal hemorrhoids without mention of complication Loose stools Migraine Past Surgical History: PAST SURGICAL HISTORY Procedure Laterality Date BREAST LUMPECTOMY HX Left 1968 COLONOSCOPY 11/30/2018 [place] - poor prep. hyperplastic polyps. Repeat in 3 years due to prep. 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 STRES INCONTINENCE Bladder suspension Medications: Current Outpatient Medications Medication Sig DULoxetine (CYMBALTA) 20 mg capsule Take 1 capsule by mouth once daily. cyclobenzaprine (FLEXERIL) 5 mg tablet Take 5 mg by mouth as needed for muscle spasm. levothyroxine (SYNTHROID) 100 mcg tablet Take 1 tablet by mouth once daily. prochlorperazine (COMPAZINE) 10 mg tablet Take 1 tablet by mouth every 6 hours as needed for Nausea/Vomiting. SUMAtriptan (IMITREX) 50 mg tablet Take 1-2 tablets by mouth as directed. At onset of migraine; mayrepeat in 2 HR if not resolved. phenazopyridine (PYRIDIUM) 200 mg tablet Take 1 tablet by mouth three times daily as needed. (Patient not taking: Reported on 07/25/2019 ) FLUoxetine (PROZAC) 20 mg capsule Take 20 mg by mouth once daily. estradiol (ESTRACE) 0.01 % (0.1 mg/gram) vaginal cream Apply a pea sized amount to the urethra 3 times a week Levothyroxine 50 mcg cap Take 75 mcg by mouth. SUMATRIPTAN SUCCINATE (IMITREX ORAL) Take by mouth. No current facility-administered medications for this visit. Allergies: Prednisone ROS: General (negative for fatigue, malaise, weight loss/gain) HEENT (negative for headache, earache, recent vision changes, sinus pain, sore throat) Respiratory (no recent shortness of breath, hemoptysis) CV (negative for chest tightness, palpitations) Musculoskeletal (see HPI) Psych (no depression, anxiety) Musculoskeletal: (+) right shoulder pain, (+) back pain Recording using [employer] software for draft documentation of the visit was discussed with the patient/authorized sales representative wire rope; all questions welcomed and answered. Patient/authorized sales representative wire rope agreed to proceed Edgar Doan MD documented in this encounterThe [facility] History of Present illness Narrative* Tere Gregory RT(R) - 08/23/2024 9:40 AM EDT Radiology Service Progress Note PATIENT NAME: Kristina Encinas DATE OF SERVICE: August 23, 2024 TIME: 10:41 AM PATIENT IDENTITY VERIFICATION COMPLETED USING TWO (2) IDENTIFIERS: Name and Date of confirmedby patient verbally. FALL SCREENING: Has the patient had 2 falls in the last year or 1 fall with injury or currently using an Ambulatory Assistive Device (Walker, Cane, Wheelchair, Crutches, etc.)? No PATIENT GENDER DATA: Assigned female at . status: : No status:NO. PATIENT RELEVANT IMPLANT DATA REVIEWED: Not Applicable PATIENT PRESENTS WITH AN IMPLANTABLE OR ATTACHED GENERAL FARM HAND: No RADIOLOGY DEPARTMENT: General X-ray: Exam(s) Completed: Upper Extremity X- Ray(s): Shoulder, AP / TRUE AP / AXILLARY right PERIPHERAL IV DATA: Not applicable SIGNED BY: RT Jacey(R) August 23, 2024 10:41 AM documented in this encounterThe [facility]07-07-[facility]25 NoteHNO ID: [id number] Author: TERE GREGORY RT(R) Service: ? Author Type: Technologist Type: Progress Notes Filed: 08/23/2024 10:41 Note Text: Radiology Service Progress Note PATIENT NAME: Kristina Encinas DATE OF SERVICE: August 23, 2024 TIME: 10:41 AM PATIENT IDENTITY VERIFICATION COMPLETED USING TWO (2) IDENTIFIERS: Name and Date of confirmed by patient verbally. FALL SCREENING: Has the patient had 2 falls in the last year or 1 fall with injury or currently using an Ambulatory Assistive Device (Walker, Cane, Wheelchair, Crutches, etc.)? No PATIENT GENDER DATA: Assigned female at . status: : No status: NO. PATIENT RELEVANT IMPLANT DATA REVIEWED: Not Applicable PATIENT PRESENTS WITH AN IMPLANTABLE OR ATTACHED GENERAL FARM HAND: No RADIOLOGY DEPARTMENT: General X-ray: Exam(s) Completed: Upper Extremity X-Ray(s): Shoulder, AP / TRUE AP / AXILLARY right PERIPHERAL IV DATA: Not applicable SIGNED BY: RT Jacey(William) August 23, 2024 10:41 [facility]06-11-2025 Telephone encounter Note* Telephone Encounter - Salvador Adan RN - 07/28/2024 1:26 PM EDT [employer] message read: Last read by Kristina Encinas at 1:13PM on 07/28/2024. [facility]06-11-[facility] Miscellaneous Notes* Telephone Encounter - Salvador Adan RN - 07/28/2024 1:26 PM EDT Jose [email or web address] message read: Last read by Kristina Encinas at 1:13PM on 07/28/2024. * Telephone Encounter - Salvador Adan RN - 07/28/2024 1:[address] Menendez reviewed patient's thoracic CT scan. Thoracic CT Scan shows: Chronic T7 compression fracture Dr. Menendez recommends more aggressive physical therapy (PT) to target muscle tenseness. [employer] message sent. documented in this encounterThe [facility]06-11-[facility] Telephone encounter Note * Telephone Encounter - Salvador Adan RN - 07/28/2024 1:[address] Menendez reviewed patient's thoracic CT scan. Thoracic CT Scan shows: Chronic T7 compression fracture Dr. Menendez recommends more aggressive physical therapy (PT) to target muscle tenseness. [employer] message sent. [facility]06-11-[facility] History of Present illness Narrative* Mary Morrison RT(R) - 07/28/2024 8:20 AM EDT Radiology Service Progress Note PATIENT NAME: Kristina Encinas DATE OF SERVICE: July 28, 2024 TIME: 3:17 PM PATIENT IDENTITY VERIFICATION COMPLETED USING TWO (2) IDENTIFIERS: Name and Date of confirmedby patient verbally. FALL SCREENING: Has the patient had 2 falls in the last year or 1 fall with injury or currently using an Ambulatory Assistive Device (Walker, Cane, Wheelchair, Crutches, etc.)? No PATIENT GENDER DATA: Assigned female at . status: : No status:NO. PATIENT RELEVANT IMPLANT DATA REVIEWED: Yes PATIENT PRESENTS WITH AN IMPLANTABLE OR ATTACHED GENERAL FARM HAND: No RADIOLOGY DEPARTMENT: CT; Exam(s) Completed: Spine PERIPHERAL IV DATA: Not applicable SIGNED BY: RT Luis Manuel(R) July 28, 2024 3:17 PM documented in this encounterThe [facility]06-11-2025 NoteHNO ID: [id number] Author: MARY MORRISON RT(R) Service: ? Author Type: Air Operations Manager Type: Progress Notes Filed: 07/28/2024 15:17 Note Text: Radiology Service Progress Note PATIENT NAME: Kristina Encinas DATE OF SERVICE: July 28, 2024 TIME: 3:17 PM PATIENT IDENTITY VERIFICATION COMPLETED USING TWO (2) IDENTIFIERS: Name and Date of confirmed by patient verbally. FALL SCREENING: Has the patient had 2 falls in the last year or 1 fall with injury or currently using an Ambulatory Assistive Device (Walker, Cane, Wheelchair, Crutches, etc.)? No PATIENT GENDER DATA: Assigned female at . status: : No status: NO. PATIENT RELEVANT IMPLANT DATA REVIEWED: Yes PATIENT PRESENTS WITH AN IMPLANTABLE OR ATTACHED GENERAL FARM HAND: No RADIOLOGY DEPARTMENT: CT; Exam(s) Completed: Spine PERIPHERAL IV DATA: Not applicable SIGNED BY: ANTONIO Issa) July 28, 2024 3:17 [facility]06-09-2025 NoteHNO ID: [id number] Author: SANDRO MENENDEZ MD Service: ? Author Type: Physician Type: Progress Notes Filed: 07/26/2024 15:48 Note Text: [facility] Date: July 26, 2024 - 2:49 PM Kristina Encinas is self referred. Chief Complaint: thoracic back pain SUBJECTIVE: Kristina Encinas is a 79-year-old female presenting with chronic right upper back pain. Kristina reports experiencing right upper back pain since of last year. The pain began after a two-day drive to [place], during which she experienced shocking sensations across her back. She attributes the onset of pain to extensive leaf blowing with her right arm prior to the trip. The initial nerve spasms resolved after nine days of taking cyclobenzaprine 5 mg, but persistent pain remains around the shoulder blade, underneath it, and along the rib cage. The pain is least severe upon waking but begins within one to two hours and persists throughout the day until bedtime. She finds relief with a hot bath and a heating pad before sleep. She notes that lying on her back without a heating pad increases discomfort, and lying on her stomach is difficult due to chronic neck issues from a past accident. She began physical therapy in June, initially performing light exercises, abduction, adduction, and using slight bands. However, these activities exacerbated her pain, leading to a reduction in exercise intensity. Her current therapy includes ultrasound treatments and stretching. She has also reduced her swimming to walking in the water without arm movements and has limited her tennis activities, playing only twice since . She has tried acupuncture and regular massages, which provide temporary relief but do not alleviate the pain long-term. She is sensitive to medications and reports that Celebrex caused a UTI and gabapentin 100 mg made her dizzy. She is hesitant to take cyclobenzaprine three times daily due to concerns about disorientation. She expresses anxiety about undergoing an MRI due to claustrophobia and inquires about alternative imaging options. She is seeking effective pain management strategies before her upcoming trip to [place] on August 24. The pain is described as aching, radiating, sharp, and spasm. The pain intensity is rated 4. The pain is exacerbated by sitting, twisting right to left, and riding in the car and relieved by cold, heat, hot tub, lidocaine patches, message. Symptoms interfere with physical activity, sleeping, driving, cooking, household cleaning, and lifting Litigation: No. Worker's Compensation: No. Prior pain treatment has included: Medication(s): Lidocaine patches, Tylenol, Flexeril, Gabapentin, Celebrex (UTI) Physical therapy: Currently at [facility] in [place] with temporarily relief Injection(s): None Patient Entered Questionnaires PROMIS Score Percentiles 03/02/2024 07/26/2024 PROMIS Global Health Scale Physical Health Percentile 22* 22* Mental Health Percentile 63 Patient-reported Proxy-reported 03/02/2024 07/26/2024 Physical Health Physical Function Percentile 27* 2 Pain Interference Percentile 2 Proxy-reported Percentiles provide an indication of how the patient's score ranks in relation to the general population. Higher percentile rankings indicate better function/quality of life. 50th percentile is the average of the general population and indicates half of respondents had a worse score. > 31st percentile is within normal limits or better * < 31st percentile is at least ? SD worse than population, which may be clinically relevant < 16th percentile is at least 1 SD worse than population and warrants attention ALLERGIES Allergen Reactions Prednisone GI Upset Current Medications: Pain medications reviewed and reconciled in the medication list: Yes. Current Outpatient Medications Medication Sig levothyroxine (SYNTHROID) 100 mcg tablet Take 1 tablet by mouth once daily. prochlorperazine (COMPAZINE) 10 mg tablet Take 1 tablet by mouth every 6 hours as needed for Nausea/Vomiting. SUMAtriptan (IMITREX) 50 mg tablet Take 1-2 tablets by mouth as directed. At onset of migraine; may repeat in 2 HR if not resolved. phenazopyridine (PYRIDIUM) 200 mg tablet Take 1 tablet by mouth three times daily as needed. (Patient not taking: Reported on 07/25/2019 ) FLUoxetine (PROZAC) 20 mg capsule Take 20 mg by mouth once daily. estradiol (ESTRACE) 0.01 % (0.1 mg/gram) vaginal cream Apply a pea sized amount to the urethra 3 times a week Levothyroxine 50 mcg cap Take 75 mcg by mouth. SUMATRIPTAN SUCCINATE (IMITREX ORAL) Take by mouth. No current facility-administered medications for this visit. PAST MEDICAL HISTORY Diagnosis Date Hypothyroid Internal hemorrhoids without mention of complication Loose stools Migraine PAST SURGICAL HISTORY Procedure Laterality Date BREAST LUMPECTOMY HX Left 1 (more content not included)...[facility]06-09-2025 History of Present illness Narrative* Sandro Menendez MD - 07/26/2024 2:48 PM EDT Images from the original note were not included. [facility] Date: July 26, 2024 - 2:49 PM Kristina Encinas is self referred. Chief Complaint: thoracic back pain SUBJECTIVE: Kristina Encinas is a 79-year-old female presenting with chronic right upper back pain. Kristina reports experiencing right upper back pain since Thanksgiving of last year. The pain began after a two-day drive to [place], during which she experienced shocking sensations across her back. She attributes the onset of pain to extensive leaf blowing with her right arm prior to the trip. The initial nerve spasms resolved after nine days of taking cyclobenzaprine 5 mg, but persistent pain remains around the shoulder blade, underneath it, and along the rib cage. The pain is least severe upon waking but begins within one to two hours and persists throughout theday until bedtime. She finds relief with a hot bath and a heating pad before sleep. She notes that lying on her back without a heating pad increases discomfort, and lying on her stomach is difficult due to chronic neck issues from a past accident. She began physical therapy in June, initially performing light exercises, abduction, adduction, and using slight bands. However, these activities exacerbated her pain, leading to a reduction in exercise intensity. Her current therapy includes ultrasound treatments and stretching. She has also reduced her swimming to walking in the water without arm movements and has limited her tennis activities, playing only twice since . She has tried acupuncture and regular massages, which provide temporary relief but do not alleviatethe pain long-term. She is sensitive to medications and reports that Celebrex caused a UTI and gabapentin 100 mg made her dizzy. She is hesitant to take cyclobenzaprine three times daily due to concerns about disorientation. She expresses anxiety about undergoing an MRI due to claustrophobia and inquires about alternative imaging options. She is seeking effective pain management strategies before her upcoming trip to [place] on August 24. The pain is described as aching, radiating, sharp, and spasm. The pain intensity is rated 4. The pain is exacerbated by sitting, twisting right to left, and riding in the car and relieved by cold, heat, hot tub, lidocaine patches, message. Symptoms interfere with physical activity, sleeping, driving, cooking, household cleaning, and lifting Litigation: No. Worker's Compensation: No. Prior pain treatment has included: Medication(s): Lidocaine patches, Tylenol, Flexeril, Gabapentin, Celebrex (UTI) Physical therapy: Currently at [facility] with temporarily relief Injection(s): None Patient Entered Questionnaires PROMIS Score Percentiles 03/02/2024 07/26/2024 PROMIS Global Health Scale Physical Health Percentile 22* 22* Mental Health Percentile 63 Patient-reported Proxy-reported 03/02/2024 07/26/2024 Physical Health Physical Function Percentile 27* 2 Pain Interference Percentile 2 Proxy-reported Percentiles provide an indication of how the patient's score ranks in relation to the general population. Higher percentile rankings indicate better function/quality of life. 50th percentile is the average of the general population and indicates half of respondents had a worse score. > 31st percentile is within normal limits or better * < 31st percentile is at least SD worse than population, which may be clinically relevant < 16th percentile is at least 1 SD worse than population and warrants attention ALLERGIES Allergen Reactions Prednisone GI Upset Current Medications: Pain medications reviewed and reconciled in the medication list: Yes. Current Outpatient Medications Medication Sig levothyroxine (SYNTHROID) 100 mcg tablet Take 1 tablet by mouth once daily. prochlorperazine (COMPAZINE) 10 mg tablet Take 1 tablet by mouth every 6 hours as needed for Nausea/Vomiting. SUMAtriptan (IMITREX) 50 mg tablet Take 1-2 tablets by mouth as directed. At onset of migraine; mayrepeat in 2 HR if not resolved. phenazopyridine (PYRIDIUM) 200 mg tablet Take 1 tablet by mouth three times daily as needed. (Patient not taking: Reported on 07/25/2019 ) FLUoxetine (PROZAC) 20 mg capsule Take 20 mg by mouth once daily. estradiol (ESTRACE) 0.01 % (0.1 mg/gram) vaginal cream Apply a pea sized amount to the urethra 3 times a week Levothyroxine 50 mcg cap Take 75 mcg by mouth. SUMATRIPTAN SUCCINATE (IMITREX ORAL) Take by mouth. No current facility-administered medications for this visit. PAST MEDICAL HISTORY Diagnosis Date Hypothyroid Internal hemorrhoids without mention of complication Loose stools Migraine PAST SURGICAL HISTORY Procedure Laterality Date BREAST LUMPECTOMY HX Left 1968 COLONOSCOPY 11/30/2018 [place] - poor prep. hyperplastic polyps. Repeat in 3 years due to prep. 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) Years Of Education Completed: 19 years Marital Status: to [place] with 3 children REVIEW OF SYSTEMS: Constitutional: (-) Fever (-) Night Sweats (-) Weight Gain (-) Weight Loss (-) Fatigue Cardiovascular: (-) Chest Pain (-) Palpitations (-) Lightheadedness (-) Swelling of Ankles (-) Hx Heart Surgery Respiratory: (-) Shortness of Breath (-) Cough (-) Wheezing (-) Snoring Gastrointestinal: (-) Incontinence (-) Abdominal Pain (+) Diarrhea (-) Constipation (-) Nausea/Vomiting (-) Heart Burn Endocrine: (+) Thyroid Disorder (-) Diabetes Hematologic: (+) Prolonged Bleeding (-) Easy Bruising Genitourinary: (-) Incontinence (-) Frequency (-) Urinary Urgency Skin: (-) Rashes (-) Itching (-) Other Lesions Neurologic: (-) Headache (-) Double Vision (-) Confusion (-) Paralysis (-) Vertigo (-) Syncope Psychiatric: (+) Depression (+) Anxiety OARRS Report reviewed: Yes Narcotic Agreement reviewed and signed?: N/A Baseline Urine Toxicology obtained: N/A Urine Panel: No results found for: UQCANN, UQBNZL, QFN9PPC, UQAMPH, UQMAMP, UQBUPRE, UQNORBUP, UQMTHD, UQEDDP, UQTRAM, UQDTRM, UQFNTL, UQNFTL, UQCODE, UQMORP, UQDCDN, UQHCOD, UQOXYC, UQHMOR, UQOXYM, UQCREA, UQPH, UQSPGR, UQOXID, UQSPQ The pain panel was N/A PHYSICAL EXAM: Performed in conjunction with observation. The patient was alert and oriented x3. The patient was in no acute distress. Lungs: Clear, negative for dyspnea or distress. CVR: Regular Rate. Negative for SOB or peripheral edema. Neck: Supple. The range of motion was intact. Negative focal tender Thoracic: Bilateral diffuse paravertebral tenderness mostly on the right side. Back: Range of motion of the trunk was intact. Negative focal tenderness. Extremities: no reported edema or erythema. Motor: Negative focal deficits Gait: Within normal limits Medical record and diagnostic tests were reviewed for today's visit. ASSESSMENT/PLAN: 1. Chronic midline thoracic back pain (M54.6) 2. Compression fracture of T7 vertebra, initial encounter ([facility]) (S22.060A) 3. Muscle spasm (M62.838) - Chronic thoracic back pain since , likely exacerbated by repetitive leaf blowing. - Pain localized around the shoulder blade and rib cage, worsening throughout the day. - Previous treatments include physical therapy, acupuncture, and massage with temporary relief. - X-ray reveals a compression fracture in the thoracic spine. - Ordered CT scan of the thoracic spine to assess the status of the compression fracture and evaluate for any disc issues or other structural abnormalities. - She is unable to proceed with MRI due to her claustrophobia. Discussed potential use of Valium for anxiety management during MRI if needed. - Continue current physical therapy regimen with emphasis on stretching and moderate exercise. - Resume swimming and weight-bearing exercises to strengthen back muscles. - Continue Flexeril 5 mg at night for muscle relaxation; may increase to 10 mg on particularly painful days. - Avoid Celebrex due to previous UTI. - Follow-up after CT scan results to discuss further treatment options, including potential injections if indicated. The above plan and management options were discussed with patient. The patient is in agreement withthe above and verbalized understanding. I have discussed and confirmed the above treatment plan with the patient and I have reviewed the nurses notes and I am aware of the family/social history. I have confirmed ROS findings. Sandro Menendez MD 1. This document has been created with the use of voice recognition technology. It may contain inaccuracies: (e.g. misspellings, inaccurate syntax or word sense) that have escaped review. 2. The nurse practitioner, nursing staff and medical assistants are a major part of YOUR TREATMENT TEAM and will be handling your phone calls and inquiries, if any. Unless explicitly told otherwise at the time of your office visit, your study results and ensuing treatment plans will be discussed during your follow- up appointment. If you do not have a follow-up appointment and wish to discuss any issues, please set up an appointment. 3. All of the office notes, study results, and other pertinent documentation generated as part of your evaluation will be available to you and to your Primary Care Physician (PCP). Use of this material to complete such forms will be at the discretion of your PCP/referring physician. July 26, 2024 cc: No referring provider defined for this encounter. Phone: N/A Fax: Results of consultation to be transmitted via electronic medical record for those providers who practice within [facility] or with access to [employer] via MD Connect, or via letter. documented in this encounterThe [facility]04-[facility]25 Discharge summary Author Rupesh Pickering [facility] Note Date/Time June 11, 2024 7:[address] [facility] Physical Therapy [facility] [address] [place] [address] / REHABILITATION SERVICES DISCHARGE SUMMARY MR#: [id number] Acct: [id number] Name: KRISTINA ENCINAS Rep #: [id number] : 1945 79 From: Rupesh Pickering PT, ATC Referring Dr.: Dr. Edgar Doan MD Status: REG RCR Insurance: MEDICARE PART A B [facility] Discharge Summary D/C summary: It has been my pleasure to treat KRISTINA ENCINAS referred by Dr. Kirti MD, with the diagnosis of L SHLD IMPINGEMENT AND CHRONIC PAIN for a total of 7 visit(s). Discharge Date: Please see the following information for a summary of their discharge status. Subjective Subjective: I feel the best I have Pain L shoulder: Pain Intensity (Out of 10): 2 Overall Improvement % Improvement: 50 Objective Objective/Function: L shoulder pain 2/10 L shoulder ROM: flex= 135, abd= 135, ER= 0, IR= WNL L shoulder MMT: flex= 6, abd= 14, ER= 19, IR= 8 #F Pt is I with HEP Goals Goal 1:: DECREASE C/O L SHLD PAIN BY AT LEAST 80% TO EASE ADL AND RECREATIONAL FUNCTION. Goal 2:: PATIENT WILL HAVE L SHLD ROM WFL ALL PLANES WITHOUT C/O PAIN. Goal 3:: PATIENT WILL HAVE INCREASED L UE STRENGTH TO WITHIN 80% OF R UE TO IMPROVE FUNCTION Goal 4:: PATIENT WILL HAVE IMPROVED QUICK DASH SCORE BY AT LEAST 10 POINTS. Goal 5:: INDEP HEP Plan Plan: Discharge to HEP D/C Information d/c sentence: If there are questions or concerns regarding this patient's physical therapy, please feel free to call me at [phone]. Thank you for the referral of thispatient. Sincerely, Rupesh Pickering PT, ATC Balance/Gait/Functional tests Balance/Special Test Scores Quick DASH Score: 25.0000 Improvement % Improvement: 50 <Electronically signed by Rupesh Pickering PT, ATC> 06/11/24 0938 CC: Dr. Edgar Doan MD; Dr. Gail Ko MD ~ [facility] Signed [facility] Work Phone: [phone] [facility] Physical Therapy [facility] [address] [place] [address] / REHABILITATION SERVICES DISCHARGE SUMMARY MR#: [id number] Acct: [id number] Name: KRISTINA ENCINAS Rep #: [id number] : 1945 79 From: Rupesh Pickering PT, ATC Referring Dr.: Dr. Edgar Doan MD Status: REG RCR Insurance: MEDICARE PART A B [facility] Discharge Summary D/C summary: It has been my pleasure to treat KRISTINA ENCINAS referred by Dr. Kirti MD, with the diagnosis of L SHLD IMPINGEMENT AND CHRONIC PAIN for a total of 7 visit(s). Discharge Date: Please see the following information for a summary of their discharge status. Subjective Subjective: I feel the best I have Pain L shoulder: Pain Intensity (Out of 10): 2 Overall Improvement % Improvement: 50 Objective Objective/Function: L shoulder pain 2/10 L shoulder ROM: flex= 135, abd= 135, ER= 0, IR= WNL L shoulder MMT: flex= 6, abd= 14, ER= 19, IR= 8 #F Pt is I with HEP Goals Goal 1:: DECREASE C/O L SHLD PAIN BY AT LEAST 80% TO EASE ADL AND RECREATIONAL FUNCTION. Goal 2:: PATIENT WILL HAVE L SHLD ROM WFL ALL PLANES WITHOUT C/O PAIN. Goal 3:: PATIENT WILL HAVE INCREASED L UE STRENGTH TO WITHIN 80% OF R UE TO IMPROVE FUNCTION Goal 4:: PATIENT WILL HAVE IMPROVED QUICK DASH SCORE BY AT LEAST 10 POINTS. Goal 5:: INDEP HEP Plan Plan: Discharge to [facility] D/C Information d/c sentence: If there are questions or concerns regarding this patient's physical therapy, please feel free to call me at [phone]. Thank you for the referral of thispatient. Sincerely, Rupesh Pickering, PT, ATC Balance/Gait/Functional tests Balance/Special Test Scores Quick DASH Score: 25.0000 Improvement % Improvement: 50 06/11/24 0938 CC: Dr. Edgar Doan MD; Dr. Gail Ko MD ~ [facility] Signed [facility]03-26-2025 Telephone encounter Note* Telephone Encounter - Luma French RN - 05/12/2024 8:17 AM EDT Order faxed to [employer] [facility] [phone] Spoke with patient Patient verbalized understanding. [facility]03-26-2025 Miscellaneous Notes* Telephone Encounter - Luma French RN - 05/12/2024 8:17 AM EDT Order faxed to [employer] [facility] [phone] Spoke with patient Patient verbalized understanding. * Telephone Encounter - Fay Santiago PA-C - 05/12/2024 8:10 AM EDT PT order placed in [facility] on 03/09/24 that can be printed for patient. Fay Santiago PA-C * Telephone Encounter - Luma French RN - 05/11/2024 11:41 AM EDT Patient calling today for a referral for PT She would like to go to [facility] documented in this encounterThe [facility]03-26-2025 Telephone encounter Note * Telephone Encounter - Fay Santiago PA-C - 05/12/2024 8:10 AM EDT PT order placed in [facility] on 03/09/24 that can be printed for patient. Fay Santiago PA-C [facility] Work Phone: 1(984) 312-358603-25-2025 Telephone encounter Note* Telephone Encounter - Luma French RN - 05/11/2024 11:41 AM EDT Patient calling today for a referral for PT She would like to go to [facility] in [place] [facility]01-21-2025 NoteHNO ID: [id number] Author: EDGAR DOAN MD Service: ? Author Type: Physician Type: Progress Notes Filed: 2024 06:20 Note Text: Edgar Doan MD Department of Orthopaedics Orthopaedics [address] [place] [id number] Dept: [phone] March 09, 2024 CHIEF COMPLAINT: New and Pain of the Left Shoulder HPI Patient states she is having left shoulder pain for a couple of years but has gotten worse. She is having difficulty raising her arm and reaching behind her back. She plays tennis and feels a pulling in her upper arm when she goes to throw the ball to hit it. No specific injury. Taking no med's for the pain. X-rays done today. ASSESSMENT: M25.512, G89.29 Chronic left shoulder pain (primary encounter diagnosis) M25.819 Shoulder impingement PLAN: We had a lengthy discussion about likely some rotator cuff tendinitis and impingement. She would like to try cortisone injection today. She is going to be leaving town for a bit and she will consider physical therapy when she gets back. She dislikes the MRI machine, so any further imaging we may consider an ultrasound of the rotator cuff. FOLLOW UP INSTRUCTIONS: As above Ms. Kristina Encinas was advised as to contrast therapies and/or to take analgesics/anti-inflammatories as needed and all contraindications were reviewed. OBJECTIVE: Ms. Kristina Encinas is a pleasant 78 year old in no apparent distress. Gen:There were no vitals taken for this visit. nl development, non obese, no deformities ENT: Normocephalic, normal hearing, moist mucosa CV: Pulses:Radial= 2+ and symmetric, capillary refill < 2 secs, no peripheral edema/varicosities Skin: no rash, bruising or lesions. Good turgor. Psych: cooperative and appropriate, alert and oriented x 3, good mood and affect. Musculoskeletal: Supple range of motion of the cervical spine without pain. Spurling signs are negative. No atrophy of the deltoid and shoulder musculature. Left shoulder is nontender to palpation over the SC joint, clavicle and AC joint. She has tenderness to palpation over the posterior shoulder along the medial border of the scapula and along some of the paraspinal musculature with tightness, positive tenderness palpation over the anterior lateral corner of the shoulder and greater tuberosity. Nonpainful at the bicipital groove and coracoid. Active range of motion is 160 degrees of forward elevation, 60 degrees external rotation, and internal rotation to the lumbar spine. Passive range of motion is symmetrical, limited by some pain, respectively. No laxity with anterior and posterior stress. Positive Neer and Hinkle impingement signs. 4+/5 strength with supraspinatus, infraspinatus and subscapularis. Sensation is intact in the axillary, radial, median and ulnar nerve distribution Large Joint Arthro/Inj: L subacromial bursa Informed Consent Consent Obtained: Verbal Bigelow Protocol A moment to CARE was completed. SIGN IN Sign in communication not applicable due to emergent procedure. Personnel directly involved with the procedure wore the appropriate PPE. Special Equipment: N/A Patient/Surrogate Stated/Verified: Patient name, Date of , Relevant allergies and Intended procedure TIME OUT Relevant labs, photos, and/or imaging studies have been reviewed. Intended patient and procedure match the source document(s). Consent documented and matches the intended procedure. Correct side/site marked and visible. Medications required for procedure verified. No fire risk assessment and interventions applicable. No implant(s) inserted.03/09/2024 9:41 AM The procedure site was prepped in the usual sterile fashion. Site: L subacromial bursa Medications: 6 mg betamethasone acetate-betamethasone sodium phosphate 6 mg/mL Anesthetics: 5 mL lidocaine (PF) 10 mg/mL (1 %) Outcome: Tolerated well, no immediate complications Post-injection instructions were reviewed with the patient and the patient voiced understanding of these instructions. SIGN OUT No specimen collected. No instruments, equipment or retained foreign bodies applicable. Post-procedure follow-up management communicated and Plan of Care Visit completed when applicable IMAGING: Impression IMPRESSION: Negative Wheel Blocker: SKYLAR Transcribe Date/Time: Mar 09 2024 2:18P Dictated by : SERENITY VILLATORO MD This examination was interpreted and the report reviewed and electronically signed by: SERENITY VILLATORO MD on Mar 09 2024 2:18PM EST Results-Findings * * *Final Report* * * DATE OF EXAM: Mar 09 2024 9:02AM SHAHANA 5252 - XR SHLDR >/=3V AP/RODGER AP/OTHR LT / PROCEDURE REASON: M25.512-Left shoulder pain, unspecified chronicity * * * * Physician Interpretation * * * * PROCEDURE: Left shoulder INDICATION: Left shoulder pain, unspecified chronicity .left shoulder pain TECHNIQUE: XR SHLDR >/=3V AP/RODGER AP/OTHR LT (more content not included)...[facility]01-21-2025 History of Present illness Narrative* Edgar Doan MD - 03/09/2024 9:02 AM EST Associated Order(s): Large Joint Arthro/Inj: L subacromial bursa Post-Procedure Diagnose(s): Chronic left shoulder pain; Shoulder impingement Edgar Doan MD Department of Orthopaedics Orthopaedics [address] [place] [address] Dept: [phone] March 09, 2024 CHIEF COMPLAINT: New and Pain of the Left Shoulder HPI Patient states she is having left shoulder pain for a couple of years but has gotten worse. She is having difficulty raising her arm and reaching behind her back. She plays tennis and feels a pullingin her upper arm when she goes to throw the ball to hit it. No specific injury. Taking no med's forthe pain. X- rays done today. ASSESSMENT: M25.512, G89.29 Chronic left shoulder pain (primary encounter diagnosis) M25.819 Shoulder impingement PLAN: We had a lengthy discussion about likely some rotator cuff tendinitis and impingement. She would like to try cortisone injection today. She is going to be leaving town for a bit and she will considerphysical therapy when she gets back. She dislikes the MRI machine, so any further imaging we may consider an ultrasound of the rotator cuff. FOLLOW UP INSTRUCTIONS: As above Ms. Kristina Encinas was advised as to contrast therapies and/or to take analgesics/anti-inflammatories as needed and all contraindications were reviewed. OBJECTIVE: Ms. Kristina Ecninas is a pleasant 78 year old in no apparent distress. Gen:There were no vitals taken for this visit. nl development, non obese, no deformities ENT: Normocephalic, normal hearing, moist mucosa CV: Pulses:Radial= 2+ and symmetric, capillary refill < 2 secs, no peripheral edema/varicosities Skin: no rash, bruising or lesions. Good turgor. Psych: cooperative and appropriate, alert and oriented x 3, good mood and affect. Musculoskeletal: Supple range of motion of the cervical spine without pain. Spurling signs are negative. No atrophy of the deltoid and shoulder musculature. Left shoulder is nontender to palpation over the SC joint, clavicle and AC joint. She has tenderness to palpation over the posterior shoulder along the medial border of the scapula and along some of the paraspinal musculature with tightness, positive tenderness palpation over the anterior lateral corner of the shoulder and greater tuberosity. Nonpainful at the bicipital groove and coracoid. Active range of motion is 160 degrees of forward elevation, 60 degrees external rotation, and internal rotation to the lumbar spine. Passive range of motion is symmetrical, limited by some pain, respectively. No laxity with anterior and posterior stress. Positive Neer and Hinkle impingement signs. 4+/5 strength with supraspinatus, infraspinatus and subscapularis. Sensation is intact in the axillary, radial, median and ulnar nerve distribution Large Joint Arthro/Inj: L subacromial bursa Informed Consent Consent Obtained: Verbal Bigelow Protocol A moment to CARE was completed. SIGN IN Sign in communication not applicable due to emergent procedure. Personnel directly involved with the procedure wore the appropriate PPE. Special Equipment: N/A Patient/Surrogate Stated/Verified: Patient name, Date of , Relevant allergies and Intended procedure TIME OUT Relevant labs, photos, and/or imaging studies have been reviewed. Intended patient and procedure match the source document(s). Consent documented and matches the intended procedure. Correct side/site marked and visible. Medications required for procedure verified. No fire risk assessment and interventions applicable. No implant(s) inserted.03/09/2024 9:41 AM The procedure site was prepped in the usual sterile fashion. Site: L subacromial bursa Medications: 6 mg betamethasone acetate-betamethasone sodium phosphate 6 mg/mL Anesthetics: 5 mL lidocaine (PF) 10 mg/mL (1 %) Outcome: Tolerated well, no immediate complications Post-injection instructions were reviewed with the patient and the patient voiced understanding of these instructions. SIGN OUT No specimen collected. No instruments, equipment or retained foreign bodies applicable. Post-procedure follow-up management communicated and Plan of Care Visit completed when applicable IMAGING: Impression IMPRESSION: Negative Wheel Blocker: SKYLAR Transcribe Date/Time: Mar 09 2024 2:18P Dictated by : SERENITY VILLATORO MD This examination was interpreted and the report reviewed and electronically signed by: SERENITY VILLATORO MD on Mar 09 2024 2:18PM EST Results-Findings * * *Final Report* * * DATE OF EXAM: Mar 09 2024 9:02AM SHAHANA 5252 - XR SHLDR >/=3V AP/RODGER AP/OTHR LT / PROCEDURE REASON: M25.512-Left shoulder pain, unspecified chronicity * * * * Physician Interpretation * * * * PROCEDURE: Left shoulder INDICATION: Left shoulder pain, unspecified chronicity .left shoulder pain TECHNIQUE: XR SHLDR >/=3V AP/RODGER AP/OTHR LT COMPARISON: None FINDINGS: No fractures or dislocations are seen. The glenohumeral and acromioclavicular joints are within normal limits. Subacromial space is maintained. No significant degenerative change is seen. No soft tissue calcifications are seen. Upper ribs are intact. Supporting Subjective Information Below: Past Medical History: PAST MEDICAL HISTORY Diagnosis Date Hypothyroid Internal hemorrhoids without mention of complication Loose stools Migraine Past Surgical History: PAST SURGICAL HISTORY Procedure Laterality Date BREAST LUMPECTOMY HX Left 1968 COLONOSCOPY 11/30/2018 [place] - poor prep. hyperplastic polyps. Repeat in 3 years due to prep. 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 STRES INCONTINENCE Bladder suspension Family History: FAMILY HISTORY Problem Relation Age of Onset Hyperlipidemia Mother other (Bowel obstruction) Mother other (lung and bone cancer) Father Colon Cancer Daughter Social History: Social History Tobacco Use Smoking status: Never Smokeless tobacco: Never Vaping Use Vaping status: Never Used Substance Use Topics Alcohol use: Yes Comment: occasional Drug use: No Medications: Current Outpatient Medications Medication Sig levothyroxine (SYNTHROID) 100 mcg tablet Take 1 tablet by mouth once daily. prochlorperazine (COMPAZINE) 10 mg tablet Take 1 tablet by mouth every 6 hours as needed for Nausea/Vomiting. SUMAtriptan (IMITREX) 50 mg tablet Take 1-2 tablets by mouth as directed. At onset of migraine; mayrepeat in 2 HR if not resolved. phenazopyridine (PYRIDIUM) 200 mg tablet Take 1 tablet by mouth three times daily as needed. (Patient not taking: Reported on 07/25/2019 ) FLUoxetine (PROZAC) 20 mg capsule Take 20 mg by mouth once daily. estradiol (ESTRACE) 0.01 % (0.1 mg/gram) vaginal cream Apply a pea sized amount to the urethra 3 times a week Levothyroxine 50 mcg cap Take 75 mcg by mouth. SUMATRIPTAN SUCCINATE (IMITREX ORAL) Take by mouth. No current facility-administered medications for this visit. Allergies: Prednisone ROS: General (negative for fatigue, malaise, weight loss/gain) HEENT (negative for headache, earache, recent vision changes, sinus pain, sore throat) Respiratory (no recent shortness of breath, hemoptysis) CV (negative for chest tightness, palpitations) Musculoskeletal (see HPI) Psych (no depression, anxiety) REFERRING PHYSICIAN: Consultation requested by Dr. Ko for an opinion regarding shoulder pain. My final recommendations will be communicated back to the requesting physician by way of shared Medical record or letter to requesting physician via US mail. Gail Ko MD [address] [place] [facility] [address] Edgar Doan MD documented in this encounterThe [facility]01-21-2025 History of Present illness Narrative* Samir Montiel Tech - 03/09/2024 8:20 AM EST Radiology Service Progress Note PATIENT NAME: Kristina Encinas DATE OF SERVICE: March 09, 2024 TIME: 9:02 AM PATIENT IDENTITY VERIFICATION COMPLETED USING TWO (2) IDENTIFIERS: Name and Date of confirmedby patient verbally. FALL SCREENING: Has the patient had 2 falls in the last year or 1 fall with injury or currently using an Ambulatory Assistive Device (Walker, Cane, Wheelchair, Crutches, etc.)? No PATIENT GENDER DATA: Assigned female at . status: : No status:NO. PATIENT RELEVANT IMPLANT DATA REVIEWED: Not Applicable PATIENT PRESENTS WITH AN IMPLANTABLE OR ATTACHED GENERAL FARM HAND: No RADIOLOGY DEPARTMENT: General X-ray: Exam(s) Completed: Upper Extremity X- Ray(s): Shoulder, AP / TRUE AP / AXILLARY left PERIPHERAL IV DATA: Not applicable SIGNED BY: Clau Rhodes March 09, 2024 9:02 AM documented in this encounterThe [facility]01-21-2025 NoteHNO ID: [id number] Author: SAMIR MONTIEL Tech Service: ? Author Type: Air Operations Manager Type: Progress Notes Filed: 03/09/2024 09:03 Note Text: Radiology Service Progress Note PATIENT NAME: Kristina Encinas DATE OF SERVICE: March 09, 2024 TIME: 9:02 AM PATIENT IDENTITY VERIFICATION COMPLETED USING TWO (2) IDENTIFIERS: Name and Date of confirmed by patient verbally. FALL SCREENING: Has the patient had 2 falls in the last year or 1 fall with injury or currently using an Ambulatory Assistive Device (Walker, Cane, Wheelchair, Crutches, etc.)? No PATIENT GENDER DATA: Assigned female at . status: : No status: NO. PATIENT RELEVANT IMPLANT DATA REVIEWED: Not Applicable PATIENT PRESENTS WITH AN IMPLANTABLE OR ATTACHED GENERAL FARM HAND: No RADIOLOGY DEPARTMENT: General X-ray: Exam(s) Completed: Upper Extremity X-Ray(s): Shoulder, AP / TRUE AP / AXILLARY left PERIPHERAL IV DATA: Not applicable SIGNED BY: Clau Rhodes March 09, 2024 9:02 [facility] Diagnosis Onset Date Resolution Status History of colon polyps acut e [facility] Work Phone: Evaluation noteNo assessment information available [facility] Work Phone: Evaluation note* Diagnosis Left shoulder pain, unspecified chronicity- Primary documented in this encounter [facility] note* Diagnosis Left shoulder pain, unspecified chronicity documented in this encounter [facility] note* Diagnosis Chronic left shoulder pain- Primary Pain in joint, shoulder region Shoulder impingement Other affections of shoulder region, not elsewhere classified [facility]* Diagnosis Chronic midline thoracic back pain- Primary Compression fracture of T7 vertebra, initial encounter ([facility]) Muscle spasm Spasm of muscle documented [facility] this [facility]* Diagnosis Chronic midline thoracic back pain documented [facility] this encounter [facility]* Diagnosis Right shoulder pain, unspecified chronicity- Primary [facility]* Diagnosis Right shoulder pain, unspecified chronicity documented [facility]* Diagnosis Chronic right shoulder pain- Primary Pain in joint, shoulder region Shoulder impingement Other affections of shoulder region, not elsewhere classified Impingement syndrome of right shoulder Other affections of shoulder region, not elsewhere classified documented in this encounter [facility] for referral (narrative)* Diagnostic Procedure Only (Routine) - New Request Specialty Diagnoses / Procedures Referred By Chuck t Referred To Contact XR IMAGING Diagnoses Left shoulder pain, unspecified chronicity Procedures XR SHOULDER GENERAL 3V OR MORE AP/TRUE AP/OTHER LEFT RADEX SHOULDER COMPLETE MINIMUM 2 VIEWS Edgar Doan MD [address] [place] [address] [place] [id number] Referral ID Status Reason Start Date Expiration Date Visits Requested Visits Authorized [id number] New Request Auto-Generat ed Referral 03/03/2024 04/02/2025 1 1 [facility] for referral (narrative)* Diagnostic Procedure Only (Routine) - Closed Specialty Diagnoses / Procedures Referred By Contac t Referred To Contact XR IMAGING Diagnoses Left shoulder pain, unspecified chronicity Procedures XR SHOULDER GENERAL 3V OR MORE AP/TRUE AP/OTHER LEFT RADEX SHOULDER COMPLETE MINIMUM 2 VIEWS Edgar Doan MD [address] [place] [address] [place] [address] Referral ID Status Reason Start Date Expiration Date V isits Requested Visits Authorized [id number] Closed Auto-Generate d Referral 03/03/2024 04/02/2025 1 1 [facility] for referral (narrative)No reason for referral information [facility] Work Phone: [facility] Narrative* Diagnostic Procedure Only (Routine) - Closed Specialty Diagnoses / Procedures Referred By Contac t Referred To Contact XR IMAGING Diagnoses Left shoulder pain, unspecified chronicity Procedures XR SHOULDER GENERAL 3V OR MORE AP/TRUE AP/OTHER LEFT RADEX SHOULDER COMPLETE MINIMUM 2 VIEWS Edgar Doan MD [address] [place] [address] [place] [address] Referral ID Status Reason Start Date Expiration Date V isits Requested Visits Authorized [id number] Closed Auto-Generate d Referral 03/03/2024 04/02/2025 1 1 [facility] for visit Narrative* Diagnostic Procedure Only (Routine) - Closed Specialty Diagnoses / Procedures Referred By Contac t Referred To Contact XR IMAGING Diagnoses Right shoulder pain, unspecified chronicity Procedures XR SHOULDER GENERAL 3V OR MORE AP/TRUE AP/OTHER RIGHT RADEX SHOULDER COMPLETE MINIMUM 2 VIEWS Edgar Doan MD [address] [place] [address] Phone: tel: fax: [place] [phone] Referral ID Status Reason Start Date Expiration Date V isits Requested Visits Authorized [id number] Closed Auto-Generate d Referral 08/11/2024 09/10/2025 1 1 [facility] Chief Complaint and Reason for Visit Chief Complaint Amb Documentation Reason for Visit History of colon yara yps Chief Complaint Amb Documentation SCREENING Reason for Visit History of colon yara yps Chief Complaint LUMP THAT HAS BEEN P RESENT FOR 1 MNTH Chief Complaint SCREENING Chief Complaint Admit Date L SHLD PN/RX HERE June 11, 2024 9:0 0am Chief Complaint Admit Date NECK PAIN. RX HERE October 26, 2024 9:00am Advance Directives No Advanced Directives Records Found Advance Directive Response Recorded Date/ Time Name of Medical Power of Detention Sergeant BECKIE DESIRE ENCINAS November 16, 2021 9:31am Living Will Yes November 16, 2021 9:31am Power of Detention Sergeant Yes October 9:31am Advance Directive Response Recorded Date/ Time Name of Medical Power of Detention Sergeant BECKIE DESIRE ENCINAS November 16, 2021 8:31am Living Will Yes November 16, 2021 8:31am Power of Detention Sergeant Yes October 8:31am Advance Directive Response Recorded Date/ Time Living Will Yes November 16, 2021 9:31am Power of Detention Sergeant Yes October 9:31am Advance Directive Response Recorded Date/ Time Living Will Yes November 16, 2021 8:31am Power of Detention Sergeant Yes October 8:31am Summary Purpose Family History No Family History Records Found Reason for Referral Specialty Diagnoses / Procedures Referred By Chuck chaidez Referred To Contact [facility] Diagnoses Chronic left shoulder pain Shoulder impingement Procedures CONSULT TO PHYSICAL THERAPY PHYSICAL THERAPY EVALUATION HIGH COMPLEX 45 MINS Edgar Doan MD [address] [place] [address] [facility] [place] [address] [place] [address] Referral ID Status Reason Start Date Expiration Date Visits Requested Visits Authorized [id number] Authorized PCP Requested Referral Auto-Generate d Referral 03/09/2024 03/09/2025 99 99 Additional Source Comments Care Teams (unrecognized sec tion and content) Team Status: Active Member Role Status Dates Dr. Gail Ko MD Family Provider Active Dr. Gail Ko MD Primary Care Provider Active Team Status: Inactive Member Role Status Dates Dr. Gail Ko MD Primary Care Prov ider, Attending Provider, Referring Provider Active Team Status: Inactive Member Role Status Dates Dr. Gail Ko MD Primary Care Provider, Attendin g Provider Active Sole Conforming Machine Operator Relationship Specialty Start Date End Date Gail Ko MD [address] [place] [address] PCP - General Family Medicine 07/25/19 Sole Conforming Machine Operator Relationship Specialty Start Date End Date Gail Ko MD [address] [address] PCP - General Family Medicine 07/25/19 Sole Conforming Machine Operator Relationship Specialty Start Date End Date Gail Ko MD [address] [address] PCP - General Family Medicine 07/25/19 Sole Conforming Machine Operator Relationship Specialty Start Date End Date Gail Ko MD [address] [place] [address] PCP - General Family Medicine 07/25/19 Team Status: Active Member Role Status Dates Dr. Gail Ko MD Primary Care Provider Active Team Status: Inactive Member Role Status Dates Dr. Gail Ko MD Primary Care Provider Active Start: June 11, 2024 End: June 11, 2024 Dr. Edgar Doan MD Attending Provider Active Start: June 11, 2024 End: June 11, 2024 Dr. Edgar Doan MD Referring Provider Active Start: June 11, 2024 End: June 11, 2024 Sole Conforming Machine Operator Relationship Specialty Start Date End Date Gail Ko MD [address] [place], [place] [address] PCP - General Family Medicine 07/25/19 Sole Conforming Machine Operator Relationship Specialty Start Date End Date Gail Ko MD [address] [address] PCP - General Family Medicine 07/25/19 Sole Conforming Machine Operator Relationship Specialty Start Date End Date Gail Ko MD [address] [place] [address] PCP - General Family Medicine 07/25/19 Sole Conforming Machine Operator Relationship Specialty Start Date End Date Gail Ko MD [address] [address] PCP - General Family Medicine 07/25/19 Sole Conforming Machine Operator Relationship Specialty Start Date End Date Gail Ko MD [address] [place] [address] PCP - General Family Medicine 07/25/19 Team Status: Active Member Role/Relationship Status Dates Dr. Gail Ko MD Primary care physician Active Team Status: Inactive Member Role/Relationship Status Dates Dr. Gail Ko MD Primary care physician Active Start: October 26, 2024 End: October 26, 2024 OVI Garcia Attending physician Active Sta rt: October 26, 2024 End: October 26, 2024 OVI Garcia Referring Provider Active Star t: October 26, 2024 End: October 26, 2024 Source Comments (unrecognize d section and content) In the event this informatio n is protected by the [facility] Confidentiality of Alcohol and Drug Abuse Patient Records regulations: The Federal rules restrict any use of the information to criminally investigate or prosecute any alcohol or drug abuse patient.[facility] the event this information is protected by the Federal Confidentiality of Alcohol and Drug Abuse Patient Records regulations: The Federal rules restrict any use of the information to criminally investigate or prosecute any alcohol or drug abuse patient.[facility] the event this information is protected by the Federal Confidentiality of Alcohol and Drug Abuse Patient Records regulations: The Federal rules restrict any use of the information to criminally investigate or prosecute any alcohol or drug abuse patient.[facility] the event this information is protected by the Federal Confidentiality of Alcohol and Drug Abuse Patient Records regulations: The Federal rules restrict any use of the information to criminally investigate or prosecute any alcohol or drug abuse patient.[facility] the event this information is protected by the Federal Confidentiality of Alcohol and Drug Abuse Patient Records regulations: The Federal rules restrict any use of the information to criminally investigate or prosecute any alcohol or drug abuse patient.[facility] the event this information is protected by the Federal Confidentiality of Alcohol and Drug Abuse Patient Records regulations: The Federal rules restrict any use of the information to criminally investigate or prosecute any alcohol or drug abuse patient.[facility] the event this information is protected by the Federal Confidentiality of Alcohol and Drug Abuse Patient Records regulations: The Federal rules restrict any use of the information to criminally investigate or prosecute any alcohol or drug abuse patient.[facility] the event this information is protected by the Federal Confidentiality of Alcohol and Drug Abuse Patient Records regulations: The Federal rules restrict any use of the information to criminally investigate or prosecute any alcohol or drug abuse patient.[facility] the event this information is protected by the Federal Confidentiality of Alcohol and Drug Abuse Patient Records regulations: The Federal rules restrict any use of the information to criminally investigate or prosecute any alcohol or drug abuse patient.[facility] the event this information is protected by the Federal Confidentiality of Alcohol and Drug Abuse Patient Records regulations: The Federal rules restrict any use of the information to criminally investigate or prosecute any alcohol or drug abuse patient.[facility] the event this information is protected by the Federal Confidentiality of Alcohol and Drug Abuse Patient Records regulations: The Federal rules restrict any use of the information to criminally investigate or prosecute any alcohol or drug abuse patient.[facility] INFORMATION SOURCE (unrecogn ized section and content) DATE CREATED AUTHOR 03/10/2024 [facility] DATE CREATED AUTHOR AUTHOR'S ORGANIZ ATION 07/14/2024 [facility] DATE CREATED AUTHOR AUTHOR'S ORGANIZ ATION 08/31/2024 [facility] DATE CREATED AUTHOR AUTHOR'S ORGANIZ ATION 11/05/[address] [place] [address] Reason for Visit (unrecogniz ed section and content) Reason Comments New Pain Reason Comments Orders Reason Comments Results Thoracic CT Scan Reason Comments Radiology CT Specialty Diagnoses / Procedures Referred By Chuck t Referred To Contact CT IMAGING Diagnoses Chronic midline thoracic back pain Procedures CT THORACIC SPINE WO IVCON CT THORACIC SPINE W/O CONTRAST MATERIAL Sandro Menendez MD [address] [facility] [place] [address] Phone: tel: fax: [place] [phone] Referral ID Status Reason Start Date Expiration Date V isits Requested Visits Authorized [id number] Closed Auto-Generate d Referral 07/26/2024 08/25/2025 1 1 Reason Comments Pain Last seen 03/09/24 le ft shoulder pain with injection given Established Patient Last seen 03/09/24 le ft shoulder pain with injection given FOR RECORDS PERTAINING TO PATIENTS WHO ARE [...] BE BASED ON THE PRIMARY CLINICAL RECORDS. [employer] [facility]. provides no warranty or guarantee of the accuracy or completeness of information in this document.
[2025-01-21 14:58] LABS: Hematocrit 43.1 % (37-47); Hemoglobin 14.1 g/dL (12.0-15.0); Immature Granulocytes Count 0.010 X10^3/uL (0.0-0.0); Mean Corp Hgb Conc 32.7 g/dL (32-36); Mean Corpuscular Volume 95.8 fL (81-99); Mean Platelet Vol. 10.9 fl (6.2-12.0); NRBC Flagged by Analyzer 0 % (0-5); Platelet Count 234 K/mm3 (150-450); RBC Distribution Width CV 12.8 % (11.6-14.6); RBC Distribution Width SD 45.3 fl (35.1-43.9); Red Blood Count 4.50 M/mm3 (4.2-5.4); White Blood Count 4.8 K/mm3 (4.4-11.0)
[2025-01-21 15:27] LABS: AST(SGOT) 22 U/L (<=31); Alanine Aminotransfer ALT/SGPT 16 U/L (<=34); Albumin, Serum 4.2 g/dL (3.4-4.8); Alkaline Phosphatase 60 U/L (35-104); Anion Gap 11 (5-15); BUN 15 mg/dL (4-19); BUN/Creat Ratio 17.5 RATIO (10-20); Calcium,Total 9.8 mg/dL (7.6-11.0); Carbon Dioxide 26.2 mmol/L (21.0-32.0); Chloride 104 mmol/L (98-108); Globulin 2.6 g/dL (2.2-4.2); Glucose 68 mg/dL (70-99); Potassium 4.5 mmol/L (3.3-5.1)
== END | disposition home or self-care (01) ==
LOC: BFHLAB 11:22
PROVIDERS: PCP Family Medicine; Visit Provider Family Medicine
DX: Z00.00 Encounter for general adult medical examination without abnormal findings (principal); E03.9 Hypothyroidism, unspecified; E78.5 Hyperlipidemia, unspecified
CPT/HCPCS: 36415; 80053; 84439; 84443; 85025